=== PATIENT | male | born 1960 | race Caucasian/White ===

== ENCOUNTER 2019-03-12 15:12 | Emergency (ER) | payer MEDICARE, MEDICAID, SELFPAY ==
[2019-03-12 15:22] VITALS: BP 170/118; PULSE 80; RESP 14; TEMP 36.4; O2SAT 96; BMI 27.4
--- NOTE | 2019-03-12 16:17 | PC.NURSE ---
Pt arrived with complaints of parasite in his stool and brought sample. small smudge on toilet paper. no parasite noted by RN. pt being treated for CDiff with Augmentin and Vanco PO given by [facility]. denies abd pain at this time. pt poor historian. placed on isolation precautions.
--- NOTE | 2019-03-12 16:26 | ED_ITS ---
HPI - Nausea/Vomiting/Diarrhea General Chief complaint: Nausea/Vomiting/Diarrhea Stated complaint: thinks has parasits in his stool Time Seen by Provider: 03/12/19 16:13 Source: patient Mode of arrival: Ambulatory Limitations: no limitations History of Present Illness HPI Narrative: 50-year-old male who was discharged just over 24 hours ago from an outside facility where he states he was admitted for initially what sound like diverticulitis however during that admission he was diagnosed with C diff. He is currently on oral vancomycin and also Augmentin. He states that yesterday and today he thinks that he has noticed when he has had bowel movements warms in his stool. No recent travel. Related Data Home Medications Medication Instructions Recorded Confirmed acetaminophen-codeine 1 tab PO Q4-6H PRN 03/12/19 amlodipine 5 mg PO DAILY 03/12/19 03/12/19 amoxicillin-pot clavulanate 1 tab PO BID 03/12/19 03/12/19 atenolol 100 mg PO DAILY 03/12/19 03/12/19 ciprofloxacin HCl 500 mg PO BID 03/12/19 03/12/19 metronidazole 500 mg PO TID 03/12/19 03/12/19 ondansetron 4 mg PO Q4-6H PRN 03/12/19 03/12/19 vancomycin 125 mg PO QID 03/12/19 03/12/19 Allergies Allergy/AdvReac Type Severity Reaction Status Date / Time unknown antibiotic Allergy Uncoded 03/12/19 15:22 Review of Systems Constitutional Constitutional: Denies fever(s) and Denies headache(s) ENT Ears, Nose, Mouth, and Throat: Denies headache(s) Cardiovascular Cardiovascular: Denies chest pain, Denies edema and Denies dyspnea Respiratory Respiratory: Denies dyspnea Gastrointestinal Gastrointestinal: Reports abdominal pain, Reports change in stool character, Reports diarrhea, Denies nausea and Denies vomiting Genitourinary Genitourinary: Denies dysuria Musculoskeletal Musculoskeletal: Denies myalgias and Denies arthralgias Integumentary/Breasts Skin/Breast: Denies lesions and Denies rash Neurologic Neurologic: Denies confusion and Denies headache(s) Psychiatric Psychiatric: Denies confusion Hematologic/Lymphatic Hematologic/Lymphatic: Denies easy bleeding and Denies easy bruising Patient History Medical History Clostridium difficile infection (Inactive) Social History Smoking Status: Unknown if ever smoked alcohol intake frequency: holidays/special occasions only Substance Use Type: does not use Exam Initial Vital Signs Initial Vital Signs: Vital Signs Temperature 97.6 F 03/12/19 15:22 Pulse Rate 80 03/12/19 15:22 Respiratory Rate 14 03/12/19 15:22 Blood Pressure 170/118 H 03/12/19 15:22 Pulse Oximetry 96 03/12/19 15:22 Const General: cooperative, comfortable and well developed Orientation: alert, awake and oriented x3 HENMT Head: normal to inspection and normocephalic GI Inspection: distended Palpation: soft, No firm and No tender Skin Lesions: no lesions Rashes: no rashes Neuro General: alert and awake Cognition: normal cognition Speech: speech normal Extrem General: normal to inspection and capillary refill normal Psych Appearance: grossly normal and well kempt Course Orders Ordered: ED Orders 03/12/19 16:28 Stool Culture Stat 03/12/19 16:38 Parasite ID, Worm Stat Vital Signs Vital signs: Vital Signs - 8 hr 03/12/19 15:22 Temperature 97.6 F Pulse Rate 80 Respiratory Rate 14 Blood Pressure 170/118 H Pulse Oximetry 96 MDM - Nausea/Vomiting/Diarrhea MDM Narrative Medical decision making narrative: Given his history of C diff had a long discus livia with him about not treating him presumptively for any sort of parasitic infection and waiting for the culture results to return. He was able to provide what he thought was the worms that he has been passing there is bowel movements. This was sent to the lab. There was an initial exam under the microscope by field laboratory operator stating that this did not look like any sort of warm however it will be sent to a confirmatory lab. I did inform the patient this will take a couple days to come back. He did agree on waiting on any anti parasitic medications until this is positive. We told him that he would call. He was also given a cup that he could collect a stool sample at home and take to his primary doctor if needed. He is going to continue his current antibiotic regimen. He expressed understanding and agreement with plan. Discharge Plan Departure Patient Disposition: Home Clinical Impression: Clostridium difficile infection Discharge Date/Time: 03/12/19 17:21 Instructions: Clostridium difficile Infection Activity Restrictions/Additional Instructions: The specimen you provided today is being sent to a confirmatory lab. We will call you for any positive results. Also recommend you collect a stool sample at home like we discussed. You can contact your primary provider to have this evaluated. Continue all of your medications as directed. Prescriptions: No Action metronidazole 500 mg tablet 500 mg PO TID RF: 0 acetaminophen-codeine 300-30 mg tablet 1 tab PO Q4-6H PRN (Reason: pain) RF: 0 amlodipine 5 mg tablet 5 mg PO DAILY RF: 0 ciprofloxacin HCl 500 mg tablet 500 mg PO BID RF: 0 vancomycin 125 mg capsule 125 mg PO QID RF: 0 ondansetron 4 mg tablet,disintegrating 4 mg PO Q4-6H PRN (Reason: Nausea) RF: 0 atenolol 50 mg tablet 100 mg PO DAILY RF: 0 amoxicillin-pot clavulanate 875-125 mg tablet 1 tab PO BID RF: 0
== END 2019-03-12 17:21 | disposition home or self-care (01) ==
PROVIDERS: Emergency Provider Emergency Medicine
DX: B96.89 Other specified bacterial agents as the cause of diseases classified elsewhere (principal)
CPT/HCPCS: 87169; 99282

== ENCOUNTER 2019-11-30 20:10 | Emergency (ER) | payer MEDICARE, MEDICAID, SELFPAY ==
[2019-11-30 20:17] VITALS: BP 144/96; PULSE 88; RESP 14; TEMP 36.6; O2SAT 97; BMI 28.3
--- NOTE | 2019-11-30 20:23 | ED_ITS ---
HPI - Allergic Reaction General Chief complaint: Allergic Reaction Stated complaint: SWELLING OF EYES AND LIPS THINKS ALLERGIC REACTION Time Seen by Provider: 11/30/19 20:19 Source: patient Mode of arrival: Ambulatory Limitations: no limitations History of Present Illness HPI narrative: 59M non smoker with history of HTN presents with his and the chief complaint of swelling of eye lids bilaterally and some lip swelling. He states the symptoms are very similar to when he had allergic reaction to sulfa drugs. He denies any swelling of his throat, trouble swallowing or difficulty breathing. He has no rash, wheals or other. He denies any known exposure to new medications, foods pets or other. He took 75 mg of Benadryl few hours prior to his arrival to starting to feel a bit better MD complaint: allergic reaction and facial swelling Onset (ago): day(s) Exposure: unknown Symptoms: facial swelling and lip swelling Treatment prior to arrival: benadryl Previous Allergic Reaction History: other Related Data Home Medications Medication Instructions Recorded Confirmed acetaminophen-codeine 1 tab PO Q4-6H PRN 03/12/19 amlodipine 5 mg PO DAILY 03/12/19 03/12/19 amoxicillin-pot clavulanate 1 tab PO BID 03/12/19 03/12/19 atenolol 100 mg PO DAILY 03/12/19 03/12/19 ciprofloxacin HCl 500 mg PO BID 03/12/19 03/12/19 metronidazole 500 mg PO TID 03/12/19 03/12/19 ondansetron 4 mg PO Q4-6H PRN 03/12/19 03/12/19 vancomycin 125 mg PO QID 03/12/19 03/12/19 Previous Rx's Medication Instructions Recorded prednisone 40 mg PO DAILY 5 Days tab 11/30/19 Allergies Allergy/AdvReac Type Severity Reaction Status Date / Time amoxicillin [From Augmentin] Allergy Severe Confusion Verified 11/30/19 20:20 barium iodide Allergy Severe Gastrointestinal Verified 11/30/19 20:20 Upset clavulanic acid Allergy Severe Confusion Verified 11/30/19 20:20 [From Augmentin] methadone Allergy Severe Blurry Verified 11/30/19 20:20 Vision Sulfa (Sulfonamide Allergy Severe Rash Verified 11/30/19 20:20 Antibiotics) unknown antibiotic Allergy Uncoded 03/12/19 15:22 Review of Systems Constitutional Constitutional: Denies chills, Denies fatigue, Denies fever(s), Denies frequent falls, Denies lethargy and Denies weakness Eyes Eyes: Denies change in vision, Denies eye discharge, Denies irritation and Denies loss of vision Comments: swollen upper lids ENT Ears, Nose, Mouth, and Throat: Denies change in voice, Denies dizziness, Denies neck pain, Denies sore throat and Denies throat swelling Comments: mild lip swelling Cardiovascular Cardiovascular: Denies chest pain, Denies irregular heart rhythm, Denies lightheadedness, Denies palpitations, Denies dyspnea, Denies dyspnea on exertion and Denies orthopnea Respiratory Respiratory: Denies cough, Denies dyspnea, Denies dyspnea on exertion and Denies wheezing Gastrointestinal Gastrointestinal: Denies abdominal pain, Denies change in bowel habits, Denies diarrhea, Denies nausea and Denies vomiting Musculoskeletal Musculoskeletal: Denies neck pain and Denies numbness Integumentary/Breasts Skin/Breast: Denies pruritus, Denies erythema, Denies rash and Denies wounds Neurologic Neurologic: Denies behavioral changes, Denies confusion, Denies dizziness, Denies frequent falls, Denies loss of vision, Denies numbness and Denies weakness Psychiatric Psychiatric: Denies anxiety, Denies behavioral changes, Denies confusion, Denies depression, Denies homicidal ideation and Denies suicidal ideation Endocrine Endocrine: Denies fatigue, Denies flushing and Denies palpitations Hematologic/Lymphatic Hematologic/Lymphatic: Denies easy bruising Allergic/Immunologic Allergic/Immunologic: Denies urticaria, Denies throat swelling and Denies wheezing Patient History Medical History Clostridium difficile infection (Inactive) Social History Smoking Status: Never smoker Smoking Status: Never smoker alcohol intake frequency: holidays/special occasions only Substance Use Type: marijuana Exam Narrative Exam Narrative: GENERAL: [59] year old patient appears stated age. Well- nourished, well-developed patient, in mild distress. HEAD: Atraumatic. Normocephalic. EYES: Painless swelling to bilateral upper lids. Minimally erythematous, not indurated. Pupils equal round and reactive. Extraocular motions intact. No scleral icterus. No injection or drainage. ENT: Lip swelling difficult to see on exam, reported by patient. No tongue swelling Nose without bleeding, purulent drainage. Throat without erythema, tonsillar hypertrophy or exudate. Airway patent. NECK: Trachea midline. Non tender CARDIOVASCULAR: Regular rate and rhythm without murmurs, gallops, or rubs. RESPIRATORY: Clear to auscultation. Breath sounds equal bilaterally. No wheezes, rales, or rhonchi. GASTROINTESTINAL: Abdomen soft, non-tender, nondistended. EXTREMITIES: No edema or joint tenderness. BACK: Nontender without deformity or crepitance. No flank tenderness. NEURO: AOx3. SKIN: No rash or erythema of visible areas Initial Vital Signs Initial Vital Signs: Vital Signs Temperature 98 F 11/30/19 20:17 Pulse Rate 88 11/30/19 20:17 Respiratory Rate 14 11/30/19 20:17 Blood Pressure 144/96 H 11/30/19 20:17 Pulse Oximetry 97 11/30/19 20:17 Course Orders Ordered: Discontinued Medications Prednisone (Deltasone) 40 mg PO NOW ONE Stop: 11/30/19 21:03 Last Admin: 11/30/19 21:09 Dose: 40 mg Documented by: BRIDGER Vital Signs Vital signs: Vital Signs - 8 hr 11/30/19 20:17 Temperature 98 F Pulse Rate 88 Respiratory Rate 14 Blood Pressure 144/96 H Pulse Oximetry 97 Discharge Plan Departure Patient Disposition: Home Clinical Impression: Allergic reaction Qualifiers: Encounter type: initial encounter Qualified Code(s): T78.40XA - Allergy, unspecified, initial encounter Discharge Date/Time: 11/30/19 21:15 Instructions: DI for General Allergic Reactions Activity Restrictions/Additional Instructions: *You have been diagnosed with [generalized allergic reaction] *What to do: *Take medications as directed: [id number] antihistamine such as Benadryl and an H2 saw like Zantac or Pepcid as well as the prescription for prednisone *Follow up with your primary care provider in 2-3 days, call for an appointment. Let them know you were seen in the Emergency Department and that we ask that you be seen in follow up *Return to ER if you should have any new, worsening or concerning symptoms, Prescriptions: New prednisone 20 mg tablet 40 mg PO DAILY 5 Days RF: 0 No Action metronidazole 500 mg tablet 500 mg PO TID RF: 0 acetaminophen-codeine 300-30 mg tablet 1 tab PO Q4-6H PRN (Reason: pain) RF: 0 amlodipine 5 mg tablet 5 mg PO DAILY RF: 0 ciprofloxacin HCl 500 mg tablet 500 mg PO BID RF: 0 vancomycin 125 mg capsule 125 mg PO QID RF: 0 ondansetron 4 mg tablet,disintegrating 4 mg PO Q4-6H PRN (Reason: Nausea) RF: 0 atenolol 50 mg tablet 100 mg PO DAILY RF: 0 amoxicillin-pot clavulanate 875-125 mg tablet 1 tab PO BID RF: 0
--- NOTE | 2019-11-30 20:27 | PC.NURSE ---
Onset last evening with eyeand lip irritation and swelling, reports symptoms still present, though improving from earlier today.
[2019-11-30] MEDS: predniSONE 20 MG TABLET 40 MG PO (21:09)
== END 2019-11-30 21:15 | disposition home or self-care (01) ==
PROVIDERS: Emergency Provider Emergency Medicine
DX: T78.40XA Allergy, unspecified, initial encounter (principal)
CPT/HCPCS: 99282; 99283

== ENCOUNTER 2020-03-18 10:03 | Emergency (ER) | payer OTHER, MEDICAID, SELFPAY ==
[2020-03-18] VITALS (13 sets, daily range): BP systolic 143–170; BP diastolic 72–100; PULSE 91–115; RESP 11–35; TEMP 36.9; O2SAT 94–100; BMI 27.4
[2020-03-18 10:44] LABS: Add Manual Diff / Slide Review NO; Basophils Absolute Auto 0 /uL (0-100); Basophils Percent Auto 0.3 % (0-2); Eosinophils Absolute Auto 0 /uL (0-450); Hematocrit 47.9 % (41-53); Hemoglobin 16.3 g/dL (13.5-17.5); Lymphocytes Absolute Auto 400 /uL (1100-4500); Lymphocytes Percent Auto 4.6 % (25-40); Mean Corpuscular HGB Conc 33.9 % (30-36); Mean Corpuscular Volume 91.4 fL (80-100); Monocytes Absolute Auto 200 /uL (0-900); Monocytes Percent Auto 2.3 % (3-14); Neutrophils Absolute Auto 8800 /uL (1500-7000); Neutrophils Percent Auto 92.8 % (50-75); Platelet Count 246 X10^3/uL (150-400); Red Blood Cell Count 5.25 X10^6/uL (4.5-5.9); Red Cell Distribution Width 13.9 % (11.6-14.8); White Blood Cell Count 9.5 X10^3/uL (4.5-11.0)
[2020-03-18 10:48] LABS: Alanine Aminotransferase 25 IU/L (<50); Albumin 5.1 g/dL (3.5-5.0); Albumin Globulin Ratio 1.5 (1.0-2.8); Alkaline Phosphatase 74 U/L (38-126); Aspartate Aminotransferase 23 IU/L (17-59); BUN Creatinine Ratio 22.7 (6-22); Bilirubin Total 1.7 mg/dL (0.2-1.3); Blood Urea Nitrogen 17 mg/dL (9-20); Calcium 10.2 mg/dL (8.4-10.2); Carbon Dioxide 19 mmol/L (22-32); Chloride 107 mmol/L (98-107); Estimated Glomerular Filt Rate > 60.0 mL/min (>60); Globulin 3.5 g/dL (1.7-4.1); Glucose 177 mg/dL (70-100); HEMOLYSIS < 15 (0-50); Lipase 60 U/L (23-300); Potassium 4.1 mmol/L (3.4-5.1); Sodium 142 mmol/L (137-145); Total Protein 8.6 g/dL (6.3-8.2)
[2020-03-18] MEDS: SODIUM CHLORIDE 0.9% 1,000 ML 150 ML IV (10:56)
--- NOTE | 2020-03-18 11:15 | ED_ITS ---
HPI - Abdominal Pain General Chief Complaint: Abdominal Pain Stated Complaint: coughing/throwing up/internal infection Time Seen by Provider: 03/18/20 10:41 Source: patient Mode of arrival: Ambulatory Limitations: no limitations History of Present Illness HPI narrative: 59-year-old male with history of C diff, neurogenic bladder and chronic ongoing back issues presenting today with nausea vomiting abdominal pain and diarrhea. He says it started last night at dinner yesterday at lunch she had some beans and sausage. He thinks this office may have been bad. He started feeling nauseated by dinner he has had multiple episodes of vomiting and loose watery diarrhea. He has also been having some abdominal pain for a week but intensified last night. He denies any exposure to COVID no one else is sick. MD complaint: abdominal pain Quality: cramping Related Data Home Medications Medication Instructions Recorded Confirmed acetaminophen-codeine 1 tab PO Q4-6H PRN 03/12/19 amlodipine 5 mg PO DAILY 03/12/19 03/12/19 amoxicillin-pot clavulanate 1 tab PO BID 03/12/19 03/12/19 atenolol 100 mg PO DAILY 03/12/19 03/12/19 ciprofloxacin HCl 500 mg PO BID 03/12/19 03/12/19 metronidazole 500 mg PO TID 03/12/19 03/12/19 ondansetron 4 mg PO Q4-6H PRN 03/12/19 03/12/19 vancomycin 125 mg PO QID 03/12/19 03/12/19 Previous Rx's Medication Instructions Recorded ondansetron 4 mg PO Q8H #10 tab 03/18/20 Allergies Allergy/AdvReac Type Severity Reaction Status Date / Time amoxicillin [From Augmentin] Allergy Severe Confusion Verified 11/30/19 20:20 barium iodide Allergy Severe Gastrointestinal Verified 11/30/19 20:20 Upset clavulanic acid Allergy Severe Confusion Verified 11/30/19 20:20 [From Augmentin] methadone Allergy Severe Blurry Verified 11/30/19 20:20 Vision Sulfa (Sulfonamide Allergy Severe Rash Verified 11/30/19 20:20 Antibiotics) unknown antibiotic Allergy Uncoded 03/12/19 15:22 Review of Systems Review of Systems Narrative: GENERAL: Denies chills, fatigue, malaise, fever, sweats, travel HEENT: Denies sinus pain, ear pain, sore throat, difficulty swallowing, neck pain RESPIRATORY: Denies dyspnea, cough, wheezing, hemoptysis, sputum. CARDIOVASCULAR: Denies chest pain, palpitations, orthopnea, edema GASTROINTESTINAL: See HPI : Denies dysuria, frequency, incontinence, hematuria, urinary retention, flank pain. MUSCULOSKELETAL: Denies weakness, joint pain, or bony pain SKIN: No rash, no erythema, no pruritus NEUROLOGIC: Denies weakness, dizziness, headache, numbness, change in speech, confusion PSYCHIATRIC: No concerning psychosocial issues. 12 point review of systems is negative except for those stated above and HPI Patient History Medical History Clostridium difficile infection (Inactive) Social History Smoking Status: Never smoker Smoking Status: Never smoker alcohol intake frequency: holidays/special occasions only Substance Use Type: marijuana Exam Initial Vital Signs Initial Vital Signs: Vital Signs Pulse Rate 105 H 03/18/20 10:12 Blood Pressure 143/100 H 03/18/20 10:12 Pulse Oximetry 99 03/18/20 10:12 GENERAL: alert male appears uncomfortable and to not feel well HEENT: Head atraumatic,EOMI, pupils reactive, face symmetric, moist mucous membranes CARDIOVASCULAR: Regular rate and rhythm without murmurs, rubs or gallops. RESPIRATORY: Breath sounds equal bilaterally, no wheezes rales or rhonchi. ABDOMEN: Soft, mild left-sided tenderness no guarding or rebound : No CVA tenderness EXTREMITIES: Normal range of motion, no clubbing or edema. Neurovascularly intact NEUROLOGICAL: Alert and oriented x4.Normal gait and speech. SKIN: Warm, dry, no laceration, no petechiae, no rashes or lesions. Course Orders Ordered: ED Orders 03/18/20 10:25 Complete Blood Count AUTO DIFF Stat Comprehensive Metabolic Panel Stat Lipase Stat 03/18/20 11:45 CT abdomen pelvis w con Stat 03/18/20 12:15 Ictotest Urine Stat UA dip and micro [Urinalysis and Microscopic] Stat Urine Culture Stat Discontinued Medications Sodium Chloride (Normal Saline 0.9%) 1,000 mls @ 150 mls/hr IV CONT PANKAJ Last Infusion: 03/18/20 13:20 Dose: 999 mls/hr Documented by: Admin: 03/18/20 10:56 Dose: 150 mls/hr Documented by: LIZZIE Sodium Chloride (Normal Saline 0.9%) 1,000 mls @ 1,000 mls/hr IV BOLUS ONE Stop: 03/18/20 15:06 Last Infusion: 03/18/20 15:32 Dose: 0 mls/hr Documented by: Admin: 03/18/20 14:15 Dose: 1,000 mls/hr Documented by: DEBBIE Ketorolac Tromethamine (Toradol) 30 mg IV NOW ONE Stop: 03/18/20 11:17 Last Admin: 03/18/20 11:21 Dose: 30 mg Documented by: LIZZIE Morphine Sulfate (Morphine) 2 mg IV NOW ONE Stop: 03/18/20 14:08 Last Admin: 03/18/20 14:16 Dose: 2 mg Documented by: DEBBIE Ondansetron HCl (Zofran) 4 mg IV NOW ONE Stop: 03/18/20 11:17 Last Admin: 03/18/20 11:21 Dose: 4 mg Documented by: LIZZIE Ondansetron HCl (Zofran) 4 mg IV NOW ONE Stop: 03/18/20 14:08 Last Admin: 03/18/20 14:15 Dose: 4 mg Documented by: DEBBIE Vital Signs Vital signs: Vital Signs - 8 hr 03/18/20 10:30 03/18/20 11:09 03/18/20 11:30 Pulse Rate 101 H 100 H 115 H Respiratory Rate 13 16 35 H Blood Pressure 151/84 H 170/99 H Pulse Oximetry 99 100 100 03/18/20 11:40 03/18/20 12:35 03/18/20 12:36 Pulse Rate 95 H 100 H 99 H Respiratory Rate 13 24 19 Blood Pressure 159/88 H 159/95 H Pulse Oximetry 100 98 99 03/18/20 13:00 03/18/20 13:30 03/18/20 14:00 Pulse Rate 97 H 97 H 96 H Respiratory Rate 23 21 16 Blood Pressure 160/91 H 150/83 H Pulse Oximetry 94 94 96 03/18/20 14:30 03/18/20 15:00 Pulse Rate 91 H 93 H Respiratory Rate 11 L 24 Blood Pressure 148/72 H Pulse Oximetry 100 96 MDM - Abdominal Pain Lab Data Attestation: I reviewed the patient's lab results. Result diagrams: 03/18/20 10:03/18/20 10:25 Labs: Lab Results 03/18/20 03/18/20 03/18/20 Range/Units 10: 10:25 12:15 WBC 9.5 (4.5-11.0) X10^3/uL RBC 5.25 (4.5-5.9) X10^6/uL Hgb 16.3 (13.5-17.5) g/dL Hct 47.9 (41-53) % MCV 91.4 (80-100) fL MCH 31.0 (26-34) PG MCHC 33.9 (30-36) % RDW 13.9 (11.6-14.8) % Plt Count 246 (150-400) X10^3/uL Neut % (Auto) 92.8 H (50-75) % Lymph % (Auto) 4.6 L (25-40) % Harmon % (Auto) 2.3 L (3-14) % Eos % (Auto) 0.0 L (2-4) % Baso % (Auto) 0.3 (0-2) % Neut # (Auto) 8800 H (5800-3406) /uL Lymph # (Auto) 400 L (8973-6838) /uL Harmon # (Auto) 200 (0-900) /uL Eos # (Auto) 0 (0-450) /uL Baso # (Auto) 0 (0-100) /uL Sodium 142 (137-145) mmol/L Potassium 4.1 (3.4-5.1) mmol/L Chloride 107 (98-107) mmol/L Carbon Dioxide 19 L (22-32) mmol/L BUN 17 (9-20) mg/dL Creatinine 0.75 (0.66-1.25) mg/dL Estimated GFR > 60.0 (>60) mL/min BUN/Creatinine Ratio 22.7 H (6-22) Glucose 177 H (70-100) mg/dL Calcium 10.2 (8.4-10.2) mg/dL Total Bilirubin 1.7 H (0.2-1.3) mg/dL AST 23 (17-59) IU/L ALT 25 (<50) IU/L Alkaline Phosphatase 74 (38-126) U/L Total Protein 8.6 H (6.3-8.2) g/dL Albumin 5.1 H (3.5-5.0) g/dL Globulin 3.5 (1.7-4.1) g/dL Albumin/Globulin Ratio 1.5 (1.0-2.8) Lipase 60 (23-300) U/L Urine Color Yellow Urine Appearance Clear Urine pH 5.0 (4.5-8.0) Ur Specific [place] >=1.030 H (1.000-1.035) Urine Protein 2+ H (Negative) Urine Glucose (UA) Negative (Negative) g/dL Urine Ketones 2+ H (NEGATIVE) Urine Occult Blood Trace-lysed (Negative) Urine Nitrate Negative (Negative) Urine Bilirubin 1+ H (NEGATIVE) Ur Bilirubin Confirm Negative (Negative) Urine Urobilinogen 0.2 (0.2) E.U./dL Ur Leukocyte Esterase Negative (NEGATIVE) Urine RBC 0-1/hpf (0-5/HPF) Urine WBC 5-10/hpf H (0-5/HPF) Ur Squamous Epith Cells 1-5 /hpf (0-5/HPF) Amorphous Sediment 1+ Urine Bacteria Moderate (10-30) H (None) Urine Mucus 3+ H (Negative) Ur Culture Indicated? Specimen cultured Point of care testing: Urine Dip Bedside Urine Glucose Negative Bedside Urine Bilirubin - Negative Bedside Urine Ketone +++ 80 Urine Specific [place] 1.030 Bedside Urine Occult Blood - Negative Bedside Urine pH 5.5 Bedside Urine Protein ++ 100 Bedside Urine Urobilinogen - Negative Bedside Urine Nitrite - Negative Bedside Urine Leukocytes - Negative Esterase Imaging Data CT scan - abdomen/pelvis: Radiologist's Impression: PROCEDURE: CT ABDOMEN PELVIS W CON INDICATIONS: llq pain TECHNIQUE: After the administration of intravenous contrast, 5 mm thick sections acquired from the diaphragm to the symphysis. 5 mm coronal and sagittal reformats were acquired. For radiation dose reduction, the following was used: automated exposure control, adjustment of mA and/or kV according to patient size. COMPARISON: [facility], CT, CT ABDOMEN PELVIS WITH CONTRAST, 06/06/2017, 22:23. [facility], CT, CT ABDOMEN PELVIS WITHOUT CONTRAST, 03/08/2019, 11:35. [facility], CT, CT ABDOMEN PELVIS WITH CONTRAST, 03/06/2019, 21:54. FINDINGS: Image quality: Excellent. ABDOMEN: Lung bases: Lung bases are clear. Heart size is normal. Solid organs: There is hepatic steatosis. Liver is normal in size and enhancement. Gallbladder is normal . Biliary system is non dilated. Pancreas enhances normally. Spleen is normal in size and enhancement. No adrenal nodules. Kidneys demonstrate normal size and enhancement, without hydronephrosis. Low-density cortical nodules in kidneys are likely renal cysts. A 1 mm nonobstructing stone is seen in the right kidney. Peritoneum and bowel: There may be mild thickening of the sigmoid colon and rectum. Bowel loops demonstrate normal caliber. There are scattered colonic diverticula. No CT findings to suggest acute diverticulitis. No free fluid or air. Nodes and vessels: No retroperitoneal or mesenteric adenopathy by size criteria. Aorta and inferior vena cava are normal in size. Miscellaneous: No ventral hernias. PELVIS: Genitourinary: Bladder wall thickness is normal. Miscellaneous: No inguinal adenopathy. Small bilateral fat containing inguinal hernias are present. Bones: No suspicious bony lesions. No vertebral body compression fractures. Scoliosis with degenerative and postsurgical changes in thoracic and lumbar spine. IMPRESSION: 1. Suspect mild thickening of the sigmoid colon and rectum, suggesting mild colitis. 2. Diverticulosis without acute diverticulitis. 3. Hepatic steatosis. Dictated by: Mary James M.D. on 03/18/2020 at 12:38 MDM Narrative Medical decision making narrative: Patient still feeling nauseous unwilling to have any p.o. challenge at this time. He is given a 2nd dose of Zofran and more IV fluid along with more pain medicine Toradol did not seem to help. He is feeling much better after morphine tolerating some ice chips feels ready and able to go. Urine is cultured he has no nitrates self caths regularly, possible colonization will wait for culture. Discharge Plan Departure Patient Disposition: Home Clinical Impression: Gastroenteritis Discharge Date/Time: 03/18/20 15:38 Instructions: DI for Viral Gastroenteritis -- Adult Activity Restrictions/Additional Instructions: 1) You have been diagnosed with gastroenteritis 2) What to do: Drink frequent but small amounts of fluids. I recommend Gatorade or a Gatorade-like product, as it has small amounts of sugar and salts that improve fluid retention. 3) Take medications as directed Zofran 4 mg every 8 hours if needed for nausea or vomiting-->SENT TO [facility] IN [place] 4) Follow up with your primary care provider in 2-3 days 5) Return to ER if you should have any new or worsening symptoms such as, unable to hold down fluids despite use of anti-nausea medications and the small volume oral rehydration strategy. Prescriptions: New ondansetron 4 mg tablet,disintegrating 4 mg PO Q8H Qty: 10 RF: 0 No Action metronidazole 500 mg tablet 500 mg PO TID RF: 0 acetaminophen-codeine 300-30 mg tablet 1 tab PO Q4-6H PRN (Reason: pain) RF: 0 amlodipine 5 mg tablet 5 mg PO DAILY RF: 0 ciprofloxacin HCl 500 mg tablet 500 mg PO BID RF: 0 vancomycin 125 mg capsule 125 mg PO QID RF: 0 ondansetron 4 mg tablet,disintegrating 4 mg PO Q4-6H PRN (Reason: Nausea) RF: 0 atenolol 50 mg tablet 100 mg PO DAILY RF: 0 amoxicillin-pot clavulanate 875-125 mg tablet 1 tab PO BID RF: 0 Referrals: Ирина Weaver MD [Primary Care Provider] -
[2020-03-18] MEDS: KETOROLAC 60 MG/2 ML VIAL 30 MG IV (11:21)
[2020-03-18] MEDS: ONDANSETRON 4 MG/2 ML INJ IV ×2 (11:21→14:15)
--- NOTE | 2020-03-18 11:45 | DI.CT.S_ITS ---
PROCEDURE: CT ABDOMEN PELVIS W CON INDICATIONS: llq pain TECHNIQUE: After the administration of intravenous contrast, 5 mm thick sections acquired from the diaphragm to the symphysis. 5 mm coronal and sagittal reformats were acquired. For radiation dose reduction, the following was used: automated exposure control, adjustment of mA and/or kV according to patient size. COMPARISON: [facility], CT, CT ABDOMEN PELVIS WITH CONTRAST, 06/06/2017, 22:23. [facility], CT, CT ABDOMEN PELVIS WITHOUT CONTRAST, 03/08/2019, 11:35. [facility], CT, CT ABDOMEN PELVIS WITH CONTRAST, 03/06/2019, 21:54. FINDINGS: Image quality: Excellent. ABDOMEN: Lung bases: Lung bases are clear. Heart size is normal. Solid organs: There is hepatic steatosis. Liver is normal in size and enhancement. Gallbladder is normal . Biliary system is non dilated. Pancreas enhances normally. Spleen is normal in size and enhancement. No adrenal nodules. Kidneys demonstrate normal size and enhancement, without hydronephrosis. Low-density cortical nodules in kidneys are likely renal cysts. A 1 mm nonobstructing stone is seen in the right kidney. Peritoneum and bowel: There may be mild thickening of the sigmoid colon and rectum. Bowel loops demonstrate normal caliber. There are scattered colonic diverticula. No CT findings to suggest acute diverticulitis. No free fluid or air. Nodes and vessels: No retroperitoneal or mesenteric adenopathy by size criteria. Aorta and inferior vena cava are normal in size. Miscellaneous: No ventral hernias. PELVIS: Genitourinary: Bladder wall thickness is normal. Miscellaneous: No inguinal adenopathy. Small bilateral fat containing inguinal hernias are present. Bones: No suspicious bony lesions. No vertebral body compression fractures. Scoliosis with degenerative and postsurgical changes in thoracic and lumbar spine. IMPRESSION: 1. Suspect mild thickening of the sigmoid colon and rectum, suggesting mild colitis. 2. Diverticulosis without acute diverticulitis. 3. Hepatic steatosis. Dictated by: Mary James M.D. on 03/18/2020 at 12:38 Approved by: Mary James M.D. on 03/18/2020 at 12:45
[2020-03-18 12:39] LABS: Appearance Urine UA CLEAR; Bilirubin Urine UA 1+ (NEGATIVE); Color Urine UA YELLOW; Glucose Urine UA NEGATIVE (Negative); Ketones Urine UA 2+ (NEGATIVE); Leukocyte Esterase Urine UA NEGATIVE (NEGATIVE); Nitrite Urine UA NEGATIVE (Negative); Occult Blood Urine UA TRACE-LYSED (Negative); Protein Urine UA 2+ (Negative); Specific Gravity Urine UA >=1.030 (1.000-1.035); Urobilinogen Urine UA 0.2 E.U./dL (0.2)
[2020-03-18 12:48] LABS: Amorphous Sediment Urine 1+; Bacteria Urine Moderate (10-30); Ictotest Urine Negative (Negative); RBC Urine 0-1/HPF (0-5/HPF); Squamous Epithelial Cell Urine 1-5 /HPF (0-5/HPF); WBC Urine 5-10/HPF (0-5/HPF)
[2020-03-18 12:49] LABS: Culture Indicated Urine Specimen Cultured; Mucus Urine 3+ (Negative)
[2020-03-18] MEDS: SODIUM CHLORIDE 0.9% 1,000 ML 1000 ML IV (14:15)
[2020-03-18] MEDS: MORPHINE 2 MG/ML INJ IV (14:16)
== END 2020-03-18 15:38 | disposition home or self-care (01) ==
PROVIDERS: Emergency Provider Emergency Medicine; PCP Family Medicine
DX: K52.9 Noninfective gastroenteritis and colitis, unspecified (principal); R10.9 Unspecified abdominal pain; R11.2 Nausea with vomiting, unspecified
CPT/HCPCS: 36415; 74177; 80053; 81001; 81003; 83690; 85025; 87077; 87086; 87185; 87186; 96361; 96374; 96375; 96376; 99284; J1885; J2270; J2405; Q9967

== ENCOUNTER 2020-05-25 10:45 | Emergency (ER) | payer OTHER, MEDICAID, SELFPAY ==
[2020-05-25] VITALS (8 sets, daily range): BP systolic 126–140; BP diastolic 69–82; PULSE 85–93; RESP 12–14; TEMP 36.7; O2SAT 94–98; BMI 22.6
[2020-05-25] MEDS: ONDANSETRON 4 MG/2 ML INJ IV ×2 (11:44→12:48)
[2020-05-25] MEDS: SODIUM CHLORIDE 0.9% 1,000 ML 1000 ML IV ×2 (11:44→12:48)
[2020-05-25 11:47] LABS: Add Manual Diff / Slide Review NO; Basophils Absolute Auto 0 /uL (0-100); Basophils Percent Auto 0.2 % (0-2); Eosinophils Absolute Auto 0 /uL (0-450); Hematocrit 44.4 % (41-53); Hemoglobin 15.4 g/dL (13.5-17.5); Lymphocytes Absolute Auto 300 /uL (1100-4500); Lymphocytes Percent Auto 4.6 % (25-40); Mean Corpuscular HGB Conc 34.7 % (30-36); Mean Corpuscular Hemoglobin 31.2 PG (26-34); Mean Corpuscular Volume 90.1 fL (80-100); Monocytes Absolute Auto 100 /uL (0-900); Monocytes Percent Auto 1.9 % (3-14); Neutrophils Absolute Auto 6500 /uL (1500-7000); Neutrophils Percent Auto 93.3 % (50-75); Platelet Count 244 X10^3/uL (150-400); Red Blood Cell Count 4.93 X10^6/uL (4.5-5.9); Red Cell Distribution Width 14.1 % (11.6-14.8)
[2020-05-25 11:51] LABS: INR 1.1 (0.9-1.3); Prothrombin Time 12.5 SECONDS (10.1-12.7)
[2020-05-25 11:53] LABS: Alanine Aminotransferase 33 IU/L (<50); Albumin 4.9 g/dL (3.5-5.0); Albumin Globulin Ratio 1.5 (1.0-2.8); Alkaline Phosphatase 55 U/L (38-126); Aspartate Aminotransferase 25 IU/L (17-59); BUN Creatinine Ratio 23.4 (6-22); Bilirubin Total 1.2 mg/dL (0.2-1.3); Blood Urea Nitrogen 15 mg/dL (9-20); Carbon Dioxide 22 mmol/L (22-32); Chloride 106 mmol/L (98-107); Estimated Glomerular Filt Rate > 60.0 mL/min (>60); Globulin 3.2 g/dL (1.7-4.1); Glucose 143 mg/dL (70-100); HEMOLYSIS 19 (0-50); Lipase 23 U/L (23-300); Sodium 137 mmol/L (137-145); Total Protein 8.1 g/dL (6.3-8.2)
[2020-05-25 11:54] LABS: PTT Partial Thromboplastin Tim 31 SECONDS (26.4-36.2)
--- NOTE | 2020-05-25 11:54 | DI.CT.S_ITS ---
PROCEDURE: CT ABDOMEN PELVIS W CON INDICATIONS: Abd pain, RLQ LLQ TECHNIQUE: After the administration of intravenous contrast, 5 mm thick sections acquired from the diaphragm to the symphysis. 5 mm coronal and sagittal reformats were acquired. For radiation dose reduction, the following was used: automated exposure control, adjustment of mA and/or kV according to patient size. COMPARISON: [facility], CT, CT ABDOMEN PELVIS W CON, 03/18/2020, 11:49. FINDINGS: Image quality: Excellent. ABDOMEN: Lung bases: Lung bases are clear. Heart size is normal. Solid organs: Liver is normal in size and enhancement. Gallbladder is contracted, within normal limits. Biliary system is non dilated. Pancreas enhances normally. Spleen is normal in size and enhancement. No adrenal nodules. Kidneys demonstrate normal size and enhancement, without hydronephrosis. Peritoneum and bowel: Bowel loops demonstrate normal wall thickness and caliber. No free fluid or air. Scattered diverticulosis without evidence of diverticulitis. Nodes and vessels: No retroperitoneal or mesenteric adenopathy by size criteria. Aorta and inferior vena cava are normal in size. Miscellaneous: No ventral hernias. PELVIS: Genitourinary: Bladder wall thickness is normal. Miscellaneous: No inguinal hernias or adenopathy. Bones: No suspicious bony lesions. No vertebral body compression fractures. Remote bilateral SI joint fusion and extensive thoracolumbar fusion. IMPRESSION: 1. No evidence of acute abdominal process. 2. Scattered diverticulosis. Dictated by: Yamil Funes M.D. on 05/25/2020 at 12:52 Approved by: Yamil Funes M.D. on 05/25/2020 at 12:59
--- NOTE | 2020-05-25 12:08 | ED_ITS ---
HPI - Abdominal Pain <Saira NewtonSADE - Last Filed: 05/25/20 16:14> General Chief Complaint: Abdominal Pain Stated Complaint: abd mod pain/nausea x1 month Time Seen by Provider: 05/25/20 11:40 Source: patient and family Mode of arrival: Ambulatory Limitations: no limitations History of Present Illness HPI narrative: 59yo male with a history of Schatzki's ring presents x 2 years, history of C diff, chronic back issues with multiple surgeries, and neurogenic bladder, presents to the ED for ongoing nausea, vomiting, and abdominal pain. He states for the past 2 years he has been having intermittent issues of nausea, vomiting, and abdominal pain. Sometimes he can go a few weeks without having this issue but once it starts, he has multiple episodes of vomiting in that day and increasing pain. He states this episode has lasted approximately 16 hours, and he reports increasing pain. He has an appointment with a GI specialist in a few weeks. He has not followed up about his Schatzki's diagnosis over the past 2 years. Patient states he has tried [id number] medications such as Tums and Gas-X but has not had any relief. His primary care provider is currently Dr. Weaver, as he just switched. He occasionally has intermittent constipation that alternates with diarrhea. He does report mucus in her stool at times. Denies any blood. Patient denies any chest pain, shortness of breath, fevers, dizziness, or any other concerns. He denies any major abdominal surgeries. Related Data Home Medications Medication Instructions Recorded Confirmed acetaminophen-codeine 1 tab PO Q4-6H PRN 03/12/19 amlodipine 5 mg PO DAILY 03/12/19 03/12/19 amoxicillin-pot clavulanate 1 tab PO BID 03/12/19 03/12/19 atenolol 100 mg PO DAILY 03/12/19 03/12/19 ciprofloxacin HCl 500 mg PO BID 03/12/19 03/12/19 metronidazole 500 mg PO TID 03/12/19 03/12/19 ondansetron 4 mg PO Q4-6H PRN 03/12/19 03/12/19 vancomycin 125 mg PO QID 03/12/19 03/12/19 Previous Rx's Medication Instructions Recorded ondansetron 4 mg PO Q8H #10 tab 03/18/20 ondansetron 4 mg PO Q6H PRN #14 tab 05/25/20 Allergies Allergy/AdvReac Type Severity Reaction Status Date / Time amoxicillin [From Augmentin] Allergy Severe Confusion Verified 05/25/20 11:39 barium iodide Allergy Severe Gastrointestinal Verified 05/25/20 11:39 Upset clavulanic acid Allergy Severe Confusion Verified 05/25/20 11:39 [From Augmentin] methadone Allergy Severe Blurry Verified 05/25/20 11:39 Vision Sulfa (Sulfonamide Allergy Severe Rash Verified 05/25/20 11:39 Antibiotics) unknown antibiotic Allergy Uncoded 03/12/19 15:22 Review of Systems <SADE Hoffman - Last Filed: 05/25/20 16:14> Review of Systems Narrative: REVIEW OF SYSTEMS: GENERAL: Denies fever. HENT: No head trauma. CARDIOVASCULAR: No chest pain. RESPIRATORY: No shortness of breath or cough. GASTROINTESTINAL: Complains of abdominal pain, see HPI GENITOURINARY: No flank pain. MUSCULOSKELETAL: No pain. INTEGUMENTARY: No rash. NEURO: No numbness or tingling. PSYCH: No behavior or mood changes. Patient History <SADE Hoffman - Last Filed: 05/25/20 16:14> Medical History (Updated 05/25/20 @ 14:56 by SADE Hoffman) Clostridium difficile infection Social History Smoking Status: Never smoker Smoking Status: Never smoker alcohol intake frequency: 0-2 drinks per day Substance Use Type: marijuana Exam <SADE Hoffman - Last Filed: 05/25/20 16:14> Initial Vital Signs Initial Vital Signs: Vital Signs Temperature 98.1 F 05/25/20 11:20 Pulse Rate 89 05/25/20 11:20 Respiratory Rate 14 05/25/20 11:20 Blood Pressure 140/82 05/25/20 11:20 Pulse Oximetry 98 05/25/20 11:20 PHYSICAL EXAMINATION: GENERAL: Awake and alert, no acute distress. HENT: Normocephalic, atraumatic. Hearing intact. Oral mucosa is pink and moist. EYES: Conjunctiva pink, sclera white, no periorbital swelling. CARDIOVASCULAR: S1 and S2 sounds normal. Regular rate and rhythm, no murmurs, clicks, or bruits. No pedal edema. RESPIRATORY: Normal respiratory rate, trachea midline, airway patent. No stridor, nasal flaring or accessory muscle use. Lungs are clear in all fish without wheeze, rhonchi, or crackles. GASTROINTESTINAL: Bowel sounds normoactive. Abdomen is soft, lower right lower and left lower quadrant abdominal pain.. No organomegaly, no palpable masses. GENITALURINARY: No flank tenderness. MUSCULOSKELETAL: Normal gait and coordination. Equal tone and mass bilaterally. EXTREMITIES: CMS intact, no pedal edema. SKIN: Warm, dry, soft, appropriate color for ethnicity. No lesions, rashes, or wounds to visualized areas. NEURO: Alert and Oriented X 3. Good coordination. No ataxia, or sensory deficits, or cognitive issues. PSYCH: Appropriate affect and mood. <Mary Kay Mulligan MD - Last Filed: 05/26/20 07:34> Initial Vital Signs Initial Vital Signs: Vital Signs Temperature 98.1 F 05/25/20 11:20 Pulse Rate 89 05/25/20 11:20 Respiratory Rate 14 05/25/20 11:20 Blood Pressure 140/82 05/25/20 11:20 Pulse Oximetry 98 05/25/20 11:20 Course <SADE Hoffman - Last Filed: 05/25/20 16:14> Course Course Narrative: Patient reported improved nausea after administration of onda nsetron and fluids. He states nausea was a 3/10. Patient given Protonix and Reglan an additional L fluid. Patient was able to tolerate p.o. trial with juice and ice. Patient did not vomit at all during emergency department stay which is approximately 4 hours. Discussed laboratory results and CT with patient, is comfortable being discharged. Orders Ordered: Discontinued Medications Sodium Chloride (Normal Saline 0.9%) 1,000 mls @ 1,000 mls/hr IV BOLUS ONE Stop: 05/25/20 12:38 Last Infusion: 05/25/20 12:37 Dose: 0 mls/hr Documented by: Admin: 05/25/20 11:44 Dose: 1,000 mls/hr Documented by: JENNY Sodium Chloride (Normal Saline 0.9%) 1,000 mls @ 1,000 mls/hr IV BOLUS ONE Stop: 05/25/20 13:37 Last Infusion: 05/25/20 13:45 Dose: 0 mls/hr Documented by: Admin: 05/25/20 12:48 Dose: 1,000 mls/hr Documented by: JENNY Ketorolac Tromethamine (Ketorolac 60 Mg/2 Ml Vial) 30 mg IV NOW ONE Stop: 05/25/20 11:56 Last Admin: 05/25/20 12:48 Dose: 30 mg Documented by: JENNY Metoclopramide HCl (Metoclopramide 10 Mg/2 Ml Inj) 10 mg IV NOW ONE Stop: 05/25/20 13:25 Last Admin: 05/25/20 13:32 Dose: 10 mg Documented by: JENNY Ondansetron HCl (Ondansetron 4 Mg/2 Ml Inj) 4 mg IV NOW ONE Stop: 05/25/20 11:39 Last Admin: 05/25/20 11:44 Dose: 4 mg Documented by: JENNY Ondansetron HCl (Ondansetron 4 Mg/2 Ml Inj) 4 mg IV NOW ONE Stop: 05/25/20 11:56 Last Admin: 05/25/20 12:48 Dose: 4 mg Documented by: JENNY Pantoprazole Sodium (Pantoprazole 40 Mg Vial) 40 mg IV NOW ONE Stop: 05/25/20 13:25 Last Admin: 05/25/20 13:32 Dose: 40 mg Documented by: JENNY Vital Signs Vital signs: Vital Signs - 8 hr 05/25/20 11:20 05/25/20 11:41 05/25/20 12:00 Temperature 98.1 F Pulse Rate 89 93 H 89 Respiratory Rate 14 Blood Pressure 140/82 126/69 Pulse Oximetry 98 96 94 05/25/20 12:30 05/25/20 12:43 05/25/20 13:00 Temperature Pulse Rate 85 89 87 Respiratory Rate 14 12 Blood Pressure 127/73 133/77 133/77 Pulse Oximetry 96 97 94 05/25/20 13:30 05/25/20 14:00 Temperature Pulse Rate 90 89 Respiratory Rate Blood Pressure 140/76 136/77 Pulse Oximetry 94 98 <Mary Kay Mulligan MD - Last Filed: 05/26/20 07:34> Orders Ordered: Discontinued Medications Sodium Chloride (Normal Saline 0.9%) 1,000 mls @ 1,000 mls/hr IV BOLUS ONE Stop: 05/25/20 12:38 Last Infusion: 05/25/20 12:37 Dose: 0 mls/hr Documented by: Admin: 05/25/20 11:44 Dose: 1,000 mls/hr Documented by: JENNY Sodium Chloride (Normal Saline 0.9%) 1,000 mls @ 1,000 mls/hr IV BOLUS ONE Stop: 05/25/20 13:37 Last Infusion: 05/25/20 13:45 Dose: 0 mls/hr Documented by: Admin: 05/25/20 12:48 Dose: 1,000 mls/hr Documented by: JENNY Ketorolac Tromethamine (Ketorolac 60 Mg/2 Ml Vial) 30 mg IV NOW ONE Stop: 05/25/20 11:56 Last Admin: 05/25/20 12:48 Dose: 30 mg Documented by: JENNY Metoclopramide HCl (Metoclopramide 10 Mg/2 Ml Inj) 10 mg IV NOW ONE Stop: 05/25/20 13:25 Last Admin: 05/25/20 13:32 Dose: 10 mg Documented by: JENNY Ondansetron HCl (Ondansetron 4 Mg/2 Ml Inj) 4 mg IV NOW ONE Stop: 05/25/20 11:39 Last Admin: 05/25/20 11:44 Dose: 4 mg Documented by: JENNY Ondansetron HCl (Ondansetron 4 Mg/2 Ml Inj) 4 mg IV NOW ONE Stop: 05/25/20 11:56 Last Admin: 05/25/20 12:48 Dose: 4 mg Documented by: JENNY Pantoprazole Sodium (Pantoprazole 40 Mg Vial) 40 mg IV NOW ONE Stop: 05/25/20 13:25 Last Admin: 05/25/20 13:32 Dose: 40 mg Documented by: JENNY Vital Signs Vital signs: Vital Signs - 8 hr 05/25/20 11:20 05/25/20 11:41 05/25/20 12:00 Temperature 98.1 F Pulse Rate 89 93 H 89 Respiratory Rate 14 Blood Pressure 140/82 126/69 Pulse Oximetry 98 96 94 05/25/20 12:30 05/25/20 12:43 05/25/20 13:00 Temperature Pulse Rate 85 89 87 Respiratory Rate 14 12 Blood Pressure 127/73 133/77 133/77 Pulse Oximetry 96 97 94 05/25/20 13:30 05/25/20 14:00 Temperature Pulse Rate 90 89 Respiratory Rate Blood Pressure 140/76 136/77 Pulse Oximetry 94 98 MDM - Abdominal Pain <SADE Hoffman - Last Filed: 05/25/20 16:14> Medical Records Attestation: I reviewed the patient's medical records. Lab Data Attestation: I reviewed the patient's lab results. Result diagrams: 05/25/20 11:35 05/25/20 11:35 Labs: Lab Results 05/25/20 05/25/20 05/25/20 Range/Units 11:35 11:35 11:35 WBC 7.0 (4.5-11.0) X10^3/uL RBC 4.93 (4.5-5.9) X10^6/uL Hgb 15.4 (13.5-17.5) g/dL Hct 44.4 (41-53) % MCV 90.1 (80-100) fL MCH 31.2 (26-34) PG MCHC 34.7 (30-36) % RDW 14.1 (11.6-14.8) % Plt Count 244 (150-400) X10^3/uL Neut % (Auto) 93.3 H (50-75) % Lymph % (Auto) 4.6 L (25-40) % Titus % (Auto) 1.9 L (3-14) % Eos % (Auto) 0.0 L (2-4) % Baso % (Auto) 0.2 (0-2) % Neut # (Auto) 6500 (4398-0274) /uL Lymph # (Auto) 300 L (7419-9582) /uL Titus # (Auto) 100 (0-900) /uL Eos # (Auto) 0 (0-450) /uL Baso # (Auto) 0 (0-100) /uL PT 12.5 (10.1-12.7) SECONDS INR 1.1 (0.9-1.3) APTT 31 (26.4-36.2) SECONDS Sodium 137 (137-145) mmol/L Potassium 4.0 (3.4-5.1) mmol/L Chloride 106 (98-107) mmol/L Carbon Dioxide 22 (22-32) mmol/L BUN 15 (9-20) mg/dL Creatinine 0.64 L (0.66-1.25) mg/dL Estimated GFR > 60.0 (>60) mL/min BUN/Creatinine Ratio 23.4 H (6-22) Glucose 143 H (70-100) mg/dL Calcium 11.0 H (8.4-10.2) mg/dL Total Bilirubin 1.2 (0.2-1.3) mg/dL AST 25 (17-59) IU/L ALT 33 (<50) IU/L Alkaline Phosphatase 55 (38-126) U/L Total Protein 8.1 (6.3-8.2) g/dL Albumin 4.9 (3.5-5.0) g/dL Globulin 3.2 (1.7-4.1) g/dL Albumin/Globulin Ratio 1.5 (1.0-2.8) Lipase 23 (23-300) U/L Imaging Data CT scan - abdomen/pelvis: Radiologist's Impression: [address] [id number] Scan ReportSigned Patient: Huang Leahy AMR#: [id number]: 1960cct:[id number]/Sex: 59 / MDate of Service: 05/25/20Loc: EDAccession Number: [id number] Procedure: CT abdomen pelvis w con Ordering Provider: Saira Newton PROCEDURE: CT ABDOMEN PELVIS W CON INDICATIONS: Abd pain, RLQ LLQ TECHNIQUE: After the administration of intravenous contrast, 5 mm thick sections acquired from the diaphragm to the symphysis. 5 mm coronal and sagittal reformats were acquired. For radiation dose reduction, the following was used: automated exposure control, adjustment of mA and/or kV according to patient size. COMPARISON: [facility], CT, CT ABDOMEN PELVIS W CON, 03/18/2020, 11:49. FINDINGS: Image quality: Excellent. ABDOMEN: Lung bases: Lung bases are clear. Heart size is normal. Solid organs: Liver is normal in size and enhancement. Gallbladder is contracted, within normal limits. Biliary system is non dilated. Pancreas enhances normally. Spleen is normal in size and enhancement. No adrenal nodules. Kidneys demonstrate normal size and enhancement, without hydronephrosis. Peritoneum and bowel: Bowel loops demonstrate normal wall thickness and caliber. No free fluid or air. Scattered diverticulosis without evidence of diverticulitis. Nodes and vessels: No retroperitoneal or mesenteric adenopathy by size cr iteria. Aorta and inferior vena cava are normal in size. Miscellaneous: No ventral hernias. PELVIS: Genitourinary: Bladder wall thickness is normal. Miscellaneous: No inguinal hernias or adenopathy. Bones: No suspicious bony lesions. No vertebral body compression fractures. Remote bilateral SI joint fusion and extensive thoracolumbar fusion. IMPRESSION: 1. No evidence of acute abdominal process. 2. Scattered diverticulosis. Dictated by: Yamil Funes M.D. on 05/25/2020 at 12:52 Approved by: Yamil Funes M.D. on 05/25/2020 at 12:59 ECG Data Interpretation: 1140: Rate 91, IL interval 166, QTC 420. No ST elevation or ST depression. No ectopy. T-wave inversion noted in V1. EKG also viewed by Dr. Mulligan per protocol. MDM Narrative Medical decision making narrative: 59-year-old male presenting to the emergency department for a worsening episode of chronic nausea vomiting. I suspect this is most likely related to his Schatzki's ring and/or may be a component of cyclic vomiting. CT negative for any concerning findings. Patient does not appear to have an acute abdomen, he is afebrile and non tachycardic, no white count. Patient had improved abdominal pain in cessation of nausea and vomiting after administration of Zofran. Electrolytes within normal limits. Patient was able to tolerate p.o. oral fluids prior to discharge. He was encouraged to contact his GI specialist to request a sooner appointment. Patient was prescribed ondansetron to help with symptoms. Return precautions given for new or worsening symptoms. He agrees to plan of care verbalized understanding. <Mary Kay Mulligan MD - Last Filed: 05/26/20 07:34> Lab Data Labs: Lab Results 05/25/20 05/25/20 05/25/20 Range/Units 11:35 11:35 11:35 WBC 7.0 (4.5-11.0) X10^3/uL RBC 4.93 (4.5-5.9) X10^6/uL Hgb 15.4 (13.5-17.5) g/dL Hct 44.4 (41-53) % MCV 90.1 (80-100) fL MCH 31.2 (26-34) PG MCHC 34.7 (30-36) % RDW 14.1 (11.6-14.8) % Plt Count 244 (150-400) X10^3/uL Neut % (Auto) 93.3 H (50-75) % Lymph % (Auto) 4.6 L (25-40) % Titus % (Auto) 1.9 L (3-14) % Eos % (Auto) 0.0 L (2-4) % Baso % (Auto) 0.2 (0-2) % Neut # (Auto) 6500 (5740-9170) /uL Lymph # (Auto) 300 L (5804-2900) /uL Titus # (Auto) 100 (0-900) /uL Eos # (Auto) 0 (0-450) /uL Baso # (Auto) 0 (0-100) /uL PT 12.5 (10.1-12.7) SECONDS INR 1.1 (0.9-1.3) APTT 31 (26.4-36.2) SECONDS Sodium 137 (137-145) mmol/L Potassium 4.0 (3.4-5.1) mmol/L Chloride 106 (98-107) mmol/L Carbon Dioxide 22 (22-32) mmol/L BUN 15 (9-20) mg/dL Creatinine 0.64 L (0.66-1.25) mg/dL Estimated GFR > 60.0 (>60) mL/min BUN/Creatinine Ratio 23.4 H (6-22) Glucose 143 H (70-100) mg/dL Calcium 11.0 H (8.4-10.2) mg/dL Total Bilirubin 1.2 (0.2-1.3) mg/dL AST 25 (17-59) IU/L ALT 33 (<50) IU/L Alkaline Phosphatase 55 (38-126) U/L Total Protein 8.1 (6.3-8.2) g/dL Albumin 4.9 (3.5-5.0) g/dL Globulin 3.2 (1.7-4.1) g/dL Albumin/Globulin Ratio 1.5 (1.0-2.8) Lipase 23 (23-300) U/L Discharge Plan Departure Patient Disposition: Home Clinical Impression: Nausea & vomiting Qualifiers: Vomiting type: unspecified Vomiting Intractability: non-intractable Qualified Code(s): R11.2 - Nausea with vomiting, unspecified Instructions: Nausea and Vomiting-Adult Activity Restrictions/Additional Instructions: Thank you for entrusting me with your care today. As discussed, your CT scan and laboratory work are negative for any concerning findings. I strongly suggest following up with your GI specialist, given a call either today or tomorrow and see if you can move your appointment sooner. I prescribed you some nausea medication, take this as needed. The ondansetron was sent to [facility] in [place] I also recommend taking omeprazole 20 mg in the morning for the next 14 days, can be purchased [id number]. Return emergency department for any new or worsening symptoms such as severe pain, uncontrollable vomiting, high fevers, or any other concerns. Prescriptions: New ondansetron 4 mg tablet,disintegrating 4 mg PO Q6H PRN (Reason: nausea and vomiting) Qty: 14 RF: 0 No Action metronidazole 500 mg tablet 500 mg PO TID RF: 0 acetaminophen-codeine 300-30 mg tablet 1 tab PO Q4-6H PRN (Reason: pain) RF: 0 amlodipine 5 mg tablet 5 mg PO DAILY RF: 0 ciprofloxacin HCl 500 mg tablet 500 mg PO BID RF: 0 vancomycin 125 mg capsule 125 mg PO QID RF: 0 ondansetron 4 mg tablet,disintegrating 4 mg PO Q4-6H PRN (Reason: Nausea) RF: 0 atenolol 50 mg tablet 100 mg PO DAILY RF: 0 amoxicillin-pot clavulanate 875-125 mg tablet 1 tab PO BID RF: 0 ondansetron 4 mg tablet,disintegrating 4 mg PO Q8H Qty: 10 RF: 0 Referrals: Ирина Weaver MD [Primary Care Provider] - <Mary Kay Mulligan MD - Last Filed: 05/26/20 07:34> [facility] ED Attending Genaroature Attestation: I was immediately available in the department for consultation throughout this patient's visit. I agree with documentation as above. Mary Kay Mulligan MD
[2020-05-25] MEDS: KETOROLAC 60 MG/2 ML VIAL 30 MG IV (12:48)
[2020-05-25] MEDS: METOCLOPRAMIDE 10 MG/2 ML INJ IV (13:32)
[2020-05-25] MEDS: PANTOPRAZOLE 40 MG VIAL IV (13:32)
== END 2020-05-25 15:15 | disposition home or self-care (01) ==
PROVIDERS: Emergency Medicine; Emergency Provider Nurse Practitioner; PCP Family Medicine
DX: R11.2 Nausea with vomiting, unspecified (principal); R10.9 Unspecified abdominal pain; K22.2 Esophageal obstruction
CPT/HCPCS: 36415; 74177; 80053; 83690; 85025; 85610; 85730; 93005; 96361; 96374; 96375; 96376; 99284; C9113; J1885; J2405; J2765; Q9967

== ENCOUNTER 2020-11-29 19:56 | Emergency (ER) | payer OTHER, MEDICAID, SELFPAY ==
[2020-11-29 20:18] VITALS: BP 149/98; PULSE 107; RESP 14; TEMP 37.3; O2SAT 96; BMI 28.3
[2020-11-29 20:55] LABS: Alanine Aminotransferase 20 IU/L (<50); Albumin Globulin Ratio 1.5 (1.0-2.8); Alkaline Phosphatase 58 U/L (38-126); Aspartate Aminotransferase 27 IU/L (17-59); BUN Creatinine Ratio 20.4 (6-22); Bilirubin Total 0.7 mg/dL (0.2-1.3); Blood Urea Nitrogen 21 mg/dL (9-20); Calcium 9.1 mg/dL (8.4-10.2); Carbon Dioxide 25 mmol/L (22-32); Chloride 108 mmol/L (98-107); Estimated Glomerular Filt Rate > 60.0 mL/min (>60); Globulin 2.6 g/dL (1.7-4.1); Glucose 108 mg/dL (80-110); HEMOLYSIS < 15 (0-50); Potassium 4.3 mmol/L (3.4-5.1); Sodium 138 mmol/L (137-145); Total Protein 6.6 g/dL (6.3-8.2)
--- NOTE | 2020-11-29 20:55 | ED_ITS ---
HPI - Abdominal Pain General Chief Complaint: Abdominal Pain Stated Complaint: sore throat, abd bloating pulling on stitches Time Seen by Provider: 11/29/20 20:43 Source: patient Mode of arrival: Ambulatory Limitations: no limitations History of Present Illness HPI narrative: 60-year-old male nonsmoker with history of hypertension presents with his in the chief complaint of some bloating and mild abdominal d iscomfort over the past few days. He recently had a umbilical hernia surgery and feels like he has bloating and tugging at the sutures. His pain is minimal and associated with some decreased bowel movements. He denies any nausea or vomiting. He is passing gas and last bowel movement was prior to his surgery. He denies fever or chills. He denies chest pain or shortness of breath. He denies any dysuria, frequency or urgency. His discomfort is made worse with motion and improves with rest. Additionally, he complains of some burning in his throat that he noticed upon waking up after the surgery. He was intubated for the procedure. He denies any difficulty in swallowing nor swollen lymph nodes. Related Data Home Medications Medication Instructions Recorded Confirmed acetaminophen 300 mg-codeine 30 mg 1 tab PO Q4-6H PRN 03/12/19 tablet amlodipine 5 mg tablet 5 mg PO DAILY 03/12/19 03/12/19 amoxicillin 875 mg-potassium 1 tab PO BID 03/12/19 03/12/19 clavulanate 125 mg tablet atenolol 50 mg tablet 100 mg PO DAILY 03/12/19 03/12/19 ciprofloxacin HCl 500 mg tablet 500 mg PO BID 03/12/19 03/12/19 metronidazole 500 mg tablet 500 mg PO TID 03/12/19 03/12/19 ondansetron 4 mg disintegrating 4 mg PO Q4-6H PRN 03/12/19 03/12/19 tablet vancomycin 125 mg capsule 125 mg PO QID 03/12/19 03/12/19 Previous Rx's Medication Instructions Recorded ondansetron 4 mg disintegrating 4 mg PO Q8H #10 tab 03/18/20 tablet ondansetron 4 mg disintegrating 4 mg PO Q6H PRN #14 tab 05/25/20 tablet amlodipine 5 mg tablet 5 mg PO DAILY #20 tab 11/29/20 Allergies Allergy/AdvReac Type Severity Reaction Status Date / Time amoxicillin [From Augmentin] Allergy Severe Confusion Verified 05/25/20 11:39 barium iodide Allergy Severe Gastrointestinal Verified 05/25/20 11:39 Upset clavulanic acid Allergy Severe Confusion Verified 05/25/20 11:39 [From Augmentin] methadone Allergy Severe Blurry Verified 05/25/20 11:39 Vision Sulfa (Sulfonamide Allergy Severe Rash Verified 05/25/20 11:39 Antibiotics) unknown antibiotic Allergy Uncoded 03/12/19 15:22 Review of Systems Review of Systems Narrative: GENERAL: see HPI HEENT: see HPI RESPIRATORY: Denies dyspnea, cough, wheezing, hemoptysis, sputum. CARDIOVASCULAR: Denies chest pain, palpitations, orthopnea, edema, GASTROINTESTINAL: see HPI : Denies dysuria, frequency, incontinence, hematuria, urinary retention. MUSCULOSKELETAL: denies weakness, joint pain, or bony pain SKIN: Denies rash, skin lesions, or other NEUROLOGIC: Denies weakness, headache, numbness, change in speech, confusion, seizures, incoordination. PSYCHIATRIC: No concerning psychosocial issues. 12 point review of systems is negative except for those stated above Patient History Medical History Clostridium difficile infection Social History Smoking Status: Never smoker Smoking Status: Never smoker alcohol intake frequency: 0-2 drinks per day Substance Use Type: marijuana Exam Narrative Exam Narrative: GENERAL: [[age]] year old patient appears stated age. Well- developed patient, in minimal distress, resting comfortably HEAD: Atraumatic. Normocephalic. EYES: Pupils equal round and reactive. Extraocular motions intact. No scleral icterus. No injection or drainage. ENT: Nose without bleeding, purulent drainage. Throat without erythema, tonsillar hypertrophy or exudate. Airway patent. NECK: Trachea midline. Non tender CARDIOVASCULAR: Regular rate and rhythm without murmurs, gallops, or rubs. RESPIRATORY: Clear to auscultation. Breath sounds equal bilaterally. No wheezes, rales, or rhonchi. GASTROINTESTINAL: Abdomen soft, mild distension, nontender, bowel sounds present in all 4 quadrants, surgical incision is clean, dry and intact EXTREMITIES: No edema or joint tenderness. BACK: Nontender without deformity or crepitance. No flank tenderness. NEURO: AOx3. SKIN: No rash or erythema of visible areas Initial Vital Signs Initial Vital Signs: Vital Signs Temperature 99.2 F 11/29/20 20:18 Pulse Rate 107 H 11/29/20 20:18 Respiratory Rate 14 11/29/20 20:18 Blood Pressure 149/98 H 11/29/20 20:18 Pulse Oximetry 96 11/29/20 20:18 Course Orders Ordered: ED Orders 11/29/20 20:26 CBC Auto Diff [Complete Blood Count AUTO DIFF] Stat Comprehensive Metabolic Panel Stat 11/29/20 20:55 XR abdomen min 2V Stat 11/29/20 21:17 COVID19 -Nasal swab/Pre-Proc Stat Vital Signs Vital signs: Vital Signs - 8 hr 11/29/20 20:18 11/29/20 22:50 Temperature 99.2 F Pulse Rate 107 H 85 Respiratory Rate 14 Blood Pressure 149/98 H 161/94 H Pulse Oximetry 96 94 MDM - Abdominal Pain Lab Data Result diagrams: 11/29/20 20:26 11/29/20 20:26 Labs: Lab Results 11/29/20 11/29/20 11/29/20 Range/Units 20:26 20:26 21:17 WBC 9.4 (4.5-11.0) X10^3/uL RBC 4.61 (4.5-5.9) X10^6/uL Hgb 14.4 (13.5-17.5) g/dL Hct 41.6 (41-53) % MCV 90.2 (80-100) fL MCH 31.2 (26-34) PG MCHC 34.6 (30-36) % RDW 14.4 (11.6-14.8) % Plt Count 245 (150-400) X10^3/uL Neut % (Auto) 79.1 H (50-75) % Lymph % (Auto) 13.7 L (25-40) % [place] % (Auto) 5.8 (3-14) % Eos % (Auto) 0.9 L (2-4) % Baso % (Auto) 0.5 (0-2) % Neut # (Auto) 7400 H (1974-5070) /uL Lymph # (Auto) 1300 (3813-5381) /uL [place] # (Auto) 500 (0-900) /uL Eos # (Auto) 100 (0-450) /uL Baso # (Auto) 0 (0-100) /uL Sodium 138 (137-145) mmol/L Potassium 4.3 (3.4-5.1) mmol/L Chloride 108 H (98-107) mmol/L Carbon Dioxide 25 (22-32) mmol/L BUN 21 H (9-20) mg/dL Creatinine 1.03 (0.66-1.25) mg/dL Estimated GFR > 60.0 (>60) mL/min BUN/Creatinine Ratio 20.4 (6-22) Glucose 108 (80-110) mg/dL Calcium 9.1 (8.4-10.2) mg/dL Total Bilirubin 0.7 (0.2-1.3) mg/dL AST 27 (17-59) IU/L ALT 20 (<50) IU/L Alkaline Phosphatase 58 (38-126) U/L Total Protein 6.6 (6.3-8.2) g/dL Albumin 4.0 (3.5-5.0) g/dL Globulin 2.6 (1.7-4.1) g/dL Albumin/Globulin Ratio 1.5 (1.0-2.8) SARS-CoV-2 (PCR) Negative (Negative) Point of care testing: Point of Care Testing Rapid Strep A Negative Imaging Data Abdominal x-ray: Radiologist's Impression: [address] [id number] ReportSigned Patient: Huang Leahy AMR#: [id number]: 1960cct:[id number]/Sex: 60 / MDate of Service: 11/29/20Loc: EDAccession Number: [id number] Procedure: XR abdomen min 2V Ordering Provider: Rodney Bateman D.O. PROCEDURE: XR ABDOMEN MIN 2V INDICATIONS: abdominal pain, recent hernia surgery TECHNIQUE: 2 views of the abdomen were acquired. COMPARISON: [facility], CT, CT ABDOMEN PELVIS W CON, 05/25/2020, 12:29. FINDINGS: Surgical changes and devices: Postoperative changes of spinal fusion of the imaged thoracic, lumbar and sacral spine as well as the bilateral sacroiliac joints. Bowel: No pneumoperitoneum. The bowel gas pattern is nonobstructive. Large amount of fecal material seen in the ascending colon, proximal transverse colon, and rectum. Soft tissues: No masses; visualized solid organ contours appear normal in size. No suspicious abdominal calcifications. Bones: No suspicious bony abnormalities. IMPRESSION: Nonobstructive bowel gas pattern. Moderate fecal load seen in the region of the ascending colon, proximal transverse colon, and rectum. Findings may be related to constipation. Dictated by: Santos Lakhani M.D. on 11/29/2020 at 21:47 Approved by: Santos Lakhani M.D. on 11/29/2020 at 21:49 [facility] Narrative Medical decision making narrative: patient with recent surgery complains of bloating and a sore throat. Surgical infection, bowel obstruction and others are considered, thought unlikely given such reassuring history, physical exam, labs and imaging. His bloating and abdominal discomfort are most likely due to constipation and increased stool burden from multiple causes including NPO prior to surgery, pain medications, anesthesia, lack of activity in the postoperative phase and dietary change. Extensive discussion with him regarding fluid intake, return to normal diet, activity within recommended limits of surgeon etc.. Sore throat is likely due to intubation. He has no trouble swallowing, rapid strep is negative, no obvious findings on physical exam. Return precautions given, questions answered to his apparent satisfaction Discharge Plan Departure Patient Disposition: Home Clinical Impression: Constipation Qualifiers: Constipation type: unspecified constipation type Qualified Code(s): K59.00 - Constipation, unspecified Instructions: DI for Constipation Activity Restrictions/Additional Instructions: *You have been diagnosed with [abdominal pain with constipation and hypertension] *What to do: *Please continue to take your regular medications as directed. [x ] New medication prescriptions sent to your pharmacy: [[facility] in [place] ] *You have been diagnosed with [ abdominal pain due to constipation ] *What to do: *Take over the counter medications as directed: 1. Metamucil - is a bulk forming laxative and adds fiber 2. Colace - softens your stool 3. Dulcolax suppository - stimulates your bowels *Follow up with your primary care provider in 2-3 days, call for appointment *Return to ER if you should have any new, worsening or concerning symptoms *Drink plenty of water and eat foods high in fiber *Stay as active as you can as this helps move your bowels as well Prescriptions: New amlodipine 5 mg tablet 5 mg PO DAILY Qty: 20 RF: 0 No Action metronidazole 500 mg tablet 500 mg PO TID RF: 0 acetaminophen-codeine 300-30 mg tablet 1 tab PO Q4-6H PRN (Reason: pain) RF: 0 amlodipine 5 mg tablet 5 mg PO DAILY RF: 0 ciprofloxacin HCl 500 mg tablet 500 mg PO BID RF: 0 vancomycin 125 mg capsule 125 mg PO QID RF: 0 ondansetron 4 mg tablet,disintegrating 4 mg PO Q4-6H PRN (Reason: Nausea) RF: 0 atenolol 50 mg tablet 100 mg PO DAILY RF: 0 amoxicillin-pot clavulanate 875-125 mg tablet 1 tab PO BID RF: 0 ondansetron 4 mg tablet,disintegrating 4 mg PO Q8H Qty: 10 RF: 0 ondansetron 4 mg tablet,disintegrating 4 mg PO Q6H PRN (Reason: nausea and vomiting) Qty: 14 RF: 0 Referrals: Ирина Weaver MD [Primary Care Provider] -
[2020-11-29 20:56] LABS: Add Manual Diff / Slide Review NO; Basophils Absolute Auto 0 /uL (0-100); Basophils Percent Auto 0.5 % (0-2); Eosinophils Absolute Auto 100 /uL (0-450); Eosinophils Percent Auto 0.9 % (2-4); Hematocrit 41.6 % (41-53); Hemoglobin 14.4 g/dL (13.5-17.5); Lymphocytes Absolute Auto 1300 /uL (1100-4500); Lymphocytes Percent Auto 13.7 % (25-40); Mean Corpuscular HGB Conc 34.6 % (30-36); Mean Corpuscular Hemoglobin 31.2 PG (26-34); Mean Corpuscular Volume 90.2 fL (80-100); Monocytes Absolute Auto 500 /uL (0-900); Monocytes Percent Auto 5.8 % (3-14); Neutrophils Absolute Auto 7400 /uL (1500-7000); Neutrophils Percent Auto 79.1 % (50-75); Platelet Count 245 X10^3/uL (150-400); Red Blood Cell Count 4.61 X10^6/uL (4.5-5.9); Red Cell Distribution Width 14.4 % (11.6-14.8); White Blood Cell Count 9.4 X10^3/uL (4.5-11.0)
[2020-11-29 21:48] LABS: COVID19 -Nasal RAPID Negative (Negative)
[2020-11-29 22:50] VITALS: BP 161/94; PULSE 85; O2SAT 94
== END 2020-11-29 23:10 | disposition home or self-care (01) ==
PROVIDERS: Emergency Provider Emergency Medicine; PCP Family Medicine
DX: K59.00 Constipation, unspecified (principal); R10.9 Unspecified abdominal pain; Z20.822 Contact with and (suspected) exposure to COVID-19
CPT/HCPCS: 74019; 80053; 85025; 87635; 87880; 99283; C9803

== ENCOUNTER 2021-04-16 19:40 | Emergency (ER) | payer OTHER, MEDICAID, SELFPAY ==
[2021-04-16] VITALS (8 sets, daily range): BP systolic 123–180; BP diastolic 75–104; PULSE 69–117; RESP 14–24; TEMP 37; O2SAT 92–99
--- NOTE | 2021-04-16 20:33 | ED_ITS ---
HPI - Abdominal Pain General Chief Complaint: Abdominal Pain Stated Complaint: abd pain dizzy with bm Time Seen by Provider: 04/16/21 20:06 Source: patient Mode of arrival: Ambulatory History of Present Illness HPI narrative: Patient is a 60-year-old male who suffers from chronic back pain multiple surgeries chronic constipation presenting today with ongoing abdominal pain and dizziness for at least the last 10 days. He said he help somebody do something 10 days ago and things have just not gotten better. He has diffuse abdominal pa in both right and left sides. He actually did have a bowel movement he took some stool softeners for a few days ago seem to help a bit he has not had ever repeat bowel movement. He is occasionally nauseous no vomiting. He also has been feeling dizzy intermittently at does not seem to be related to position. He is currently tachycardic but denies any chest pain or palpitations. Denies any fever or chills. He does have a history of C diff he thought maybe his C diff might be back is he had some ?slime she his last bowel movement. He denies any new numbness tingling or weakness. He has history of neurogenic bladder and uses a catheter does self cath Related Data Home Medications Medication Instructions Recorded Confirmed acetaminophen 300 mg-codeine 30 mg 1 tab PO Q4-6H PRN 03/12/19 tablet amlodipine 5 mg tablet 5 mg PO DAILY 03/12/19 03/12/19 amoxicillin 875 mg-potassium 1 tab PO BID 03/12/19 03/12/19 clavulanate 125 mg tablet atenolol 50 mg tablet 100 mg PO DAILY 03/12/19 03/12/19 ciprofloxacin HCl 500 mg tablet 500 mg PO BID 03/12/19 03/12/19 metronidazole 500 mg tablet 500 mg PO TID 03/12/19 03/12/19 ondansetron 4 mg disintegrating 4 mg PO Q4-6H PRN 03/12/19 03/12/19 tablet vancomycin 125 mg capsule 125 mg PO QID 03/12/19 03/12/19 Previous Rx's Medication Instructions Recorded ondansetron 4 mg disintegrating 4 mg PO Q8H #10 tab 03/18/20 tablet ondansetron 4 mg disintegrating 4 mg PO Q6H PRN #14 tab 05/25/20 tablet amlodipine 5 mg tablet 5 mg PO DAILY #20 tab 11/29/20 metoclopramide HCl 10 mg tablet 10 mg PO Q6H PRN #20 tab 04/16/21 (Reglan) Allergies Allergy/AdvReac Type Severity Reaction Status Date / Time amoxicillin [From Augmentin] Allergy Severe Confusion Verified 05/25/20 11:39 barium iodide Allergy Severe Gastrointestinal Verified 05/25/20 11:39 Upset clavulanic acid Allergy Severe Confusion Verified 05/25/20 11:39 [From Augmentin] methadone Allergy Severe Blurry Verified 05/25/20 11:39 Vision Sulfa (Sulfonamide Allergy Severe Rash Verified 05/25/20 11:39 Antibiotics) unknown antibiotic Allergy Uncoded 03/12/19 15:22 Review of Systems Review of Systems Narrative: GENERAL: Denies chills, fatigue, malaise, fever, sweats, travel HEENT: Denies sinus pain, ear pain, sore throat, difficulty swallowing, neck pain RESPIRATORY: Denies dyspnea, cough, wheezing, hemoptysis, sputum. CARDIOVASCULAR: Denies chest pain, palpitations, orthopnea, edema GASTROINTESTINAL: See HPI : Denies dysuria, frequency, incontinence, hematuria, urinary retention, flank pain. MUSCULOSKELETAL: Denies weakness, joint pain, or bony pain SKIN: No rash, no erythema, no pruritus NEUROLOGIC: + dizziness, see HPI PSYCHIATRIC: No concerning psychosocial issues. 12 point review of systems is negative except for those stated above and HPI Patient History Medical History (Updated 04/16/21 @ 23:25 by Kyara Villalobos DO) Clostridium difficile infection Social History Smoking Status: Never smoker Smoking Status: Never smoker alcohol intake frequency: 0-2 drinks per day Substance Use Type: marijuana Exam Initial Vital Signs Initial Vital Signs: Vital Signs Temperature 98.6 F 04/16/21 19:49 Pulse Rate 117 H 04/16/21 19:49 Respiratory Rate 20 04/16/21 19:49 Blood Pressure 180/104 H 04/16/21 19:49 Pulse Oximetry 96 04/16/21 19:49 GENERAL: Well-appearing, well-nourished and in no acute distress. HEENT: Head atraumatic,EOMI, pupils reactive, no nystagmus, face symmetric, moist mucous membranes CARDIOVASCULAR: Tachycardic regular no murmur RESPIRATORY: Breath sounds equal bilaterally, no wheezes rales or rhonchi. ABDOMEN: Soft, nontender. Normoactive bowel sounds all 4 quadrants. No guarding or rebound. EXTREMITIES: Normal range of motion, no clubbing or edema. Neurovascularly intact NEUROLOGICAL: Alert and oriented x4.Normal gait and speech. Cranial nerves II through XII grossly intact. Good hasjtz-[id number]-bcdp, good qehk-iq-droi, strength equal bilaterally, no dysarthria or aphasia, sensation in tact to soft touch bilaterally, no visual changes, no facial droop SKIN: Warm, dry, no laceration, no petechiae, no rashes or lesions. Scores NIH Stroke Scale Level of Conciousness: Alert, keenly responsive Ask month/age: Answers both questions correctly. Open/close eyes, close hand: Performs both tasks correctly Best gaze horizontal: Normal Visual fish: No visual loss Facial palsy: Normal symetrical movement Left arm drift: No drift for full 10 sec Right arm drift: No drift for full 10 sec Left leg drift: No drift for full 5 sec Right leg drift: No drift for full 5 sec Limb ataxia: Absent Sensory on face/arms/legs: Normal, no sensory loss Best language: No aphasia, normal Dysarthria: Normal Extinction or inattention: No abnormality Total NIH Stroke scale score: 0 Course Orders Ordered: ED Orders 04/16/21 20:30 Complete Blood Count AUTO DIFF Stat Comprehensive Metabolic Panel Stat Lactate (Lactic Acid) Stat Lipase Stat Troponin & CK Cardiac Panel Stat 04/16/21 20:51 CT abdomen pelvis w con Stat CT head/brain wo con Stat 04/16/21 23:07 Urine Microscopic Stat Discontinued Medications Sodium Chloride (Normal Saline 0.9%) 1,000 mls @ 1,000 mls/hr IV BOLUS ONE Stop: 04/16/21 21:51 Last Infusion: 04/16/21 22:53 Dose: 0 mls/hr Documented by: JOSE ANGEL Admin: 04/16/21 21:41 Dose: 1,000 mls/hr Documented by: JOSE ANGEL Vital Signs Vital signs: Vital Signs - 8 hr 04/16/21 21:00 04/16/21 21:16 04/16/21 21:30 Pulse Rate 101 H 93 H 99 H Respiratory Rate 14 21 14 Blood Pressure 157/98 H 145/88 H Pulse Oximetry 92 97 94 04/16/21 22:00 04/16/21 22:30 04/16/21 23:51 Pulse Rate 93 H 84 69 Respiratory Rate 20 24 18 Blood Pressure 123/81 128/78 123/75 Pulse Oximetry 94 95 99 MDM - Abdominal Pain Lab Data Result diagrams: 04/16/21 20:30 04/16/21 20:30 Labs: Lab Results 04/16/21 04/16/21 04/16/21 Range/Units 20:30 20:30 20:30 WBC 7.0 (4.5-11.0) X10^3/uL RBC 5.46 (4.5-5.9) X10^6/uL Hgb 16.9 (13.5-17.5) g/dL Hct 48.6 (41-53) % MCV 88.9 (80-100) fL MCH 30.9 (26-34) PG MCHC 34.7 (30-36) % RDW 13.9 (11.6-14.8) % Plt Count 256 (150-400) X10^3/uL Neut % (Auto) 80.3 H (50-75) % Lymph % (Auto) 10.8 L (25-40) % [place] % (Auto) 5.3 (3-14) % Eos % (Auto) 1.9 L (2-4) % Baso % (Auto) 1.7 (0-2) % Neut # (Auto) 5600 (3126-4137) /uL Lymph # (Auto) 800 L (6438-8550) /uL [place] # (Auto) 400 (0-900) /uL Eos # (Auto) 100 (0-450) /uL Baso # (Auto) 100 (0-100) /uL Sodium 138 (137-145) mmol/L Potassium 4.2 (3.4-5.1) mmol/L Chloride 102 (98-107) mmol/L Carbon Dioxide 26 (22-32) mmol/L BUN 16 (9-20) mg/dL Creatinine 0.96 (0.66-1.25) mg/dL Estimated GFR > 60.0 (>60) mL/min BUN/Creatinine Ratio 16.7 (6-22) Glucose 100 (80-110) mg/dL Lactate (0.7-2.1) mmol/L Calcium 10.3 H (8.4-10.2) mg/dL Total Bilirubin 1.1 (0.2-1.3) mg/dL AST 24 (17-59) IU/L ALT 26 (<50) IU/L Alkaline Phosphatase 58 (38-126) U/L Total Creatine Kinase 49 L (55-170) U/L CK-MB (CK-2) TNP CK-MB (CK-2) Rel Index TNP Troponin I < 0.012 (0.01-0.034) ng/mL Total Protein 7.7 (6.3-8.2) g/dL Albumin 4.9 (3.5-5.0) g/dL Globulin 2.8 (1.7-4.1) g/dL Albumin/Globulin Ratio 1.8 (1.0-2.8) Lipase 268 (23-300) U/L Urine RBC (0-5/HPF) Urine WBC (0-5/HPF) Ur Squamous Epith Cells (0-5/HPF) Urine Bacteria (None) Ur Culture Indicated? 04/16/21 04/16/21 Range/Units 20:30 23:07 WBC (4.5-11.0) X10^3/uL RBC (4.5-5.9) X10^6/uL Hgb (13.5-17.5) g/dL Hct (41-53) % MCV (80-100) fL MCH (26-34) PG MCHC (30-36) % RDW (11.6-14.8) % Plt Count (150-400) X10^3/uL Neut % (Auto) (50-75) % Lymph % (Auto) (25-40) % [place] % (Auto) (3-14) % Eos % (Auto) (2-4) % Baso % (Auto) (0-2) % Neut # (Auto) (3060-0957) /uL Lymph # (Auto) (9909-4056) /uL [place] # (Auto) (0-900) /uL Eos # (Auto) (0-450) /uL Baso # (Auto) (0-100) /uL Sodium (137-145) mmol/L Potassium (3.4-5.1) mmol/L Chloride (98-107) mmol/L Carbon Dioxide (22-32) mmol/L BUN (9-20) mg/dL Creatinine (0.66-1.25) mg/dL Estimated GFR (>60) mL/min BUN/Creatinine Ratio (6-22) Glucose (80-110) mg/dL Lactate 1.4 (0.7-2.1) mmol/L Calcium (8.4-10.2) mg/dL Total Bilirubin (0.2-1.3) mg/dL AST (17-59) IU/L ALT (<50) IU/L Alkaline Phosphatase (38-126) U/L Total Creatine Kinase (55-170) U/L CK-MB (CK-2) CK-MB (CK-2) Rel Index Troponin I (0.01-0.034) ng/mL Total Protein (6.3-8.2) g/dL Albumin (3.5-5.0) g/dL Globulin (1.7-4.1) g/dL Albumin/Globulin Ratio (1.0-2.8) Lipase (23-300) U/L Urine RBC 0-1/hpf (0-5/HPF) Urine WBC 0-1/hpf (0-5/HPF) Ur Squamous Epith Cells 0-1 /hpf (0-5/HPF) Urine Bacteria Occasional (0-1) D (None) Ur Culture Indicated? Cult not indicated Point of care testing: Urine Dip Bedside Urine Glucose Negative Bedside Urine Bilirubin - Negative Bedside Urine Ketone - Negative Urine Specific [place] 1.015 Bedside Urine Occult Blood +/- Bedside Urine pH 6.0 Bedside Urine Protein - Negative Bedside Urine Urobilinogen - Negative Bedside Urine Nitrite - Negative Bedside Urine Leukocytes - Negative Esterase Imaging Data CT scan - head: Radiologist's Impression: PROCEDURE:? CT HEAD/BRAIN WO CON ? INDICATIONS:? dizzy ? TECHNIQUE:? Noncontrast 4.5 mm thick angled axial sections acquired from the foramen magnum to the vertex, with coronal and sagittal reformats.? For radiation dose reduction, the following was used:? automated exposure control, adjustment of mA and/or kV according to patient size.? ? COMPARISON:? None. ? FINDINGS:? Image quality:? Excellent.? ? CSF spaces:? Basal cisterns are patent.? No extra-axial fluid collections.? The ventricles are symmetric in size and shape.? ? Brain:? No intracranial bleeds or masses.? There is cerebral volume loss for age, with resultant ventricular and sulcal prominence.? There are periventricular and deep white matter chronic small vessel ischemic changes.? There is intracranial internal carotid artery atherosclerosis.? ? Skull and face:? Calvarium and visualized facial bones appear intact, without suspicious lesions.? ? Sinuses:? Visualized sinuses and mastoids are clear.? ? IMPRESSION:? No acute intracranial process. ? Dictated by: Case Casillas M.D. on 04/16/2021 at 21:28 ? ? CT scan - abdomen/pelvis: Radiologist's Impression: PROCEDURE:? CT ABDOMEN PELVIS W CON ? INDICATIONS:? ab pain hx constipation ? TECHNIQUE:? After the administration of intravenous contrast, axial sections acquired from the lung bases to the pubic symphysis.? Coronal and sagittal reformats were performed.? For radiation dose reduction, the following was used:? automated exposure control, adjustment of mA and/or kV according to patient size.? ? COMPARISON:? [facility], CT, CT ABDOMEN PELVIS W CON, 05/25/2020, 12:29. ? FINDINGS: ABDOMEN:? Lung bases:? No acute findings. Heart:? No pericardial effusion. Normal in size.? Moderate coronary artery calcifications. ? Liver:? Mild hepatic steatosis Gallbladder:? Decompressed otherwise unremarkable Bile ducts: Normal. Pancreas:? Fatty infiltration/atrophy Spleen: Normal.? Adrenals: Normal. Kidneys and Ureters:? Bilateral renal scarring/atrophy.? No hydronephrosis.? Simple appearing left renal cyst measuring 4 cm. Subcentimeter renal foci, statistically cysts, although technically too small to characterize accurately and therefore nonspecific. Stomach and duodenum:? Possible trace hiatal hernia. Bowel:? Incidental colonic diverticula.? The appendix appears normal.? No evidence of bowel obstruction.? There is mild to moderate stool Other:? No free fluid or air.? Abdominal nodes:? Normal. Aorta and IVC: Normal in size.? ? Ventral wall: Normal. ? PELVIS:? ? Bladder and reproductive: Unremarkable.? Inguinal region: No hernia.? Pelvic nodes: Normal.? ? Bones:? No suspicious bony lesions.? No vertebral body compression fractures. Diffuse spondylytic changes and facet disease.? There is extensive artifact from thoracolumbar spinal fixation hardware which partially obscures the area ? ? IMPRESSION: ? No evidence of bowel obstruction.? Mild to moderate stool. ? Overall, no acute abnormality ? Additional chronic and incidental findings as above.? ? ? Dictated by: Case Casillas M.D. on 04/16/2021 at 21:30 ? ? [facility] Narrative Medical decision making narrative: Patient no longer is feeling dizzy he has no chest pain or heart palpitations she sinus rhythm on the monitor. He says he actually took laxative medication 3 times yesterday and then his abdominal pain intensified. He had a bowel movement this morning overall he is feeling better. Blood work is reassuring. He has no neurologic deficits. Head CT and abdominal CT are negative. At this time he overall feels better. UA does not show any sign of infection. At this time recommend outpatient follow-up. Discharge Plan Departure Patient Disposition: Home Clinical Impression: Abdominal pain Instructions: DI for Abdominal Pain-Adult Activity Restrictions/Additional Instructions: *You have been diagnosed with abdominal pain *What to do: I do think some of your abdominal pain may be from your increased laxative yesterday. *Continue to take medications as directed *Follow up with your primary care provider in 2-3 days *Return to ER if you should have increasing dizziness, worsening abdominal pain, nausea vomiting or fever any new, worsening or concerning symptoms Prescriptions: New metoclopramide HCl [Reglan] 10 mg tablet 10 mg PO Q6H PRN (Reason: nausea and vomiting) Qty: 20 0RF No Action metronidazole 500 mg tablet 500 mg PO TID 0RF acetaminophen-codeine 300-30 mg tablet 1 tab PO Q4-6H PRN (Reason: pain) 0RF amlodipine 5 mg tablet 5 mg PO DAILY 0RF ciprofloxacin HCl 500 mg tablet 500 mg PO BID 0RF vancomycin 125 mg capsule 125 mg PO QID 0RF ondansetron 4 mg tablet,disintegrating 4 mg PO Q4-6H PRN (Reason: Nausea) 0RF atenolol 50 mg tablet 100 mg PO DAILY 0RF amoxicillin-pot clavulanate 875-125 mg tablet 1 tab PO BID 0RF ondansetron 4 mg tablet,disintegrating 4 mg PO Q8H Qty: 10 0RF ondansetron 4 mg tablet,disintegrating 4 mg PO Q6H PRN (Reason: nausea and vomiting) Qty: 14 0RF amlodipine 5 mg tablet 5 mg PO DAILY Qty: 20 0RF Referrals: Ирина Weaver MD [Primary Care Provider] -
[2021-04-16 20:40] LABS: Add Manual Diff / Slide Review NO; Basophils Absolute Auto 100 /uL (0-100); Basophils Percent Auto 1.7 % (0-2); Eosinophils Absolute Auto 100 /uL (0-450); Eosinophils Percent Auto 1.9 % (2-4); Hematocrit 48.6 % (41-53); Hemoglobin 16.9 g/dL (13.5-17.5); Lymphocytes Absolute Auto 800 /uL (1100-4500); Lymphocytes Percent Auto 10.8 % (25-40); Mean Corpuscular HGB Conc 34.7 % (30-36); Mean Corpuscular Hemoglobin 30.9 PG (26-34); Mean Corpuscular Volume 88.9 fL (80-100); Monocytes Absolute Auto 400 /uL (0-900); Monocytes Percent Auto 5.3 % (3-14); Neutrophils Absolute Auto 5600 /uL (1500-7000); Neutrophils Percent Auto 80.3 % (50-75); Platelet Count 256 X10^3/uL (150-400); Red Blood Cell Count 5.46 X10^6/uL (4.5-5.9); Red Cell Distribution Width 13.9 % (11.6-14.8)
[2021-04-16 20:51] LABS: Creatine Kinase 49 U/L (55-170)
--- NOTE | 2021-04-16 20:51 | DI.CT.S_ITS ---
PROCEDURE: CT ABDOMEN PELVIS W CON INDICATIONS: ab pain hx constipation TECHNIQUE: After the administration of intravenous contrast, axial sections acquired from the lung bases to the pubic symphysis. Coronal and sagittal reformats were performed. For radiation dose reduction, the following was used: automated exposure control, adjustment of mA and/or kV according to patient size. COMPARISON: [facility], CT, CT ABDOMEN PELVIS W CON, 05/25/2020, 12:29. FINDINGS: ABDOMEN: Lung bases: No acute findings. Heart: No pericardial effusion. Normal in size. Moderate coronary artery calcifications. Liver: Mild hepatic steatosis Gallbladder: Decompressed otherwise unremarkable Bile ducts: Normal. Pancreas: Fatty infiltration/atrophy Spleen: Normal. Adrenals: Normal. Kidneys and Ureters: Bilateral renal scarring/atrophy. No hydronephrosis. Simple appearing left renal cyst measuring 4 cm. Subcentimeter renal foci, statistically cysts, although technically too small to characterize accurately and therefore nonspecific. Stomach and duodenum: Possible trace hiatal hernia. Bowel: Incidental colonic diverticula. The appendix appears normal. No evidence of bowel obstruction. There is mild to moderate stool Other: No free fluid or air. Abdominal nodes: Normal. Aorta and IVC: Normal in size. Ventral wall: Normal. PELVIS: Bladder and reproductive: Unremarkable. Inguinal region: No hernia. Pelvic nodes: Normal. Bones: No suspicious bony lesions. No vertebral body compression fractures. Diffuse spondylytic changes and facet disease. There is extensive artifact from thoracolumbar spinal fixation hardware which partially obscures the area IMPRESSION: No evidence of bowel obstruction. Mild to moderate stool. Overall, no acute abnormality Additional chronic and incidental findings as above. Dictated by: Case Casillas M.D. on 04/16/2021 at 21:30 Approved by: Case Casillas M.D. on 04/16/2021 at 21:37
--- NOTE | 2021-04-16 20:51 | DI.CT.S_ITS ---
PROCEDURE: CT HEAD/BRAIN WO CON INDICATIONS: dizzy TECHNIQUE: Noncontrast 4.5 mm thick angled axial sections acquired from the foramen magnum to the vertex, with coronal and sagittal reformats. For radiation dose reduction, the following was used: automated exposure control, adjustment of mA and/or kV according to patient size. COMPARISON: None. FINDINGS: Image quality: Excellent. CSF spaces: Basal cisterns are patent. No extra-axial fluid collections. The ventricles are symmetric in size and shape. Brain: No intracranial bleeds or masses. There is cerebral volume loss for age, with resultant ventricular and sulcal prominence. There are periventricular and deep white matter chronic small vessel ischemic changes. There is intracranial internal carotid artery atherosclerosis. Skull and face: Calvarium and visualized facial bones appear intact, without suspicious lesions. Sinuses: Visualized sinuses and mastoids are clear. IMPRESSION: No acute intracranial process. Dictated by: Case Casillas M.D. on 04/16/2021 at 21:28 Approved by: Case Casillas M.D. on 04/16/2021 at 21:30
[2021-04-16 20:53] LABS: Alanine Aminotransferase 26 IU/L (<50); Albumin 4.9 g/dL (3.5-5.0); Albumin Globulin Ratio 1.8 (1.0-2.8); Alkaline Phosphatase 58 U/L (38-126); Aspartate Aminotransferase 24 IU/L (17-59); BUN Creatinine Ratio 16.7 (6-22); Bilirubin Total 1.1 mg/dL (0.2-1.3); Blood Urea Nitrogen 16 mg/dL (9-20); Calcium 10.3 mg/dL (8.4-10.2); Carbon Dioxide 26 mmol/L (22-32); Chloride 102 mmol/L (98-107); Estimated Glomerular Filt Rate > 60.0 mL/min (>60); Globulin 2.8 g/dL (1.7-4.1); Glucose 100 mg/dL (80-110); HEMOLYSIS < 15 (0-50); Lipase 268 U/L (23-300); Potassium 4.2 mmol/L (3.4-5.1); Sodium 138 mmol/L (137-145); Total Protein 7.7 g/dL (6.3-8.2)
[2021-04-16 21:02] LABS: Lactate (Lactic Acid) 1.4 mmol/L (0.7-2.1)
[2021-04-16 21:04] LABS: Troponin I < 0.012 ng/mL (0.01-0.034)
[2021-04-16] MEDS: SODIUM CHLORIDE 0.9% 1,000 ML 1000 ML IV (21:41)
[2021-04-16 23:20] LABS: Bacteria Urine Occasional (0-1); RBC Urine 0-1/HPF (0-5/HPF); Squamous Epithelial Cell Urine 0-1 /HPF (0-5/HPF); WBC Urine 0-1/HPF (0-5/HPF)
[2021-04-16 23:21] LABS: Culture Indicated Urine Cult Not Indicated
== END 2021-04-16 23:51 | disposition home or self-care (01) ==
PROVIDERS: Emergency Provider Emergency Medicine; PCP Family Medicine
DX: R10.9 Unspecified abdominal pain (principal); R42 Dizziness and giddiness
CPT/HCPCS: 36415; 70450; 74177; 80053; 81003; 81015; 82550; 83605; 83690; 84484; 85025; 99284; Q9967

== ENCOUNTER 2021-05-09 18:29 | Emergency (ER) | payer OTHER, MEDICAID, SELFPAY ==
[2021-05-09 18:36] VITALS: BP 140/98; PULSE 99; RESP 18; TEMP 36.6; O2SAT 96
[2021-05-09 19:23] LABS: Add Manual Diff / Slide Review NO; Basophils Absolute Auto 0 /uL (0-100); Basophils Percent Auto 0.5 % (0-2); Eosinophils Absolute Auto 100 /uL (0-450); Eosinophils Percent Auto 1.2 % (2-4); Hematocrit 48.4 % (41-53); Hemoglobin 16.7 g/dL (13.5-17.5); Lymphocytes Absolute Auto 900 /uL (1100-4500); Lymphocytes Percent Auto 12.4 % (25-40); Mean Corpuscular HGB Conc 34.5 % (30-36); Mean Corpuscular Hemoglobin 30.6 PG (26-34); Mean Corpuscular Volume 88.8 fL (80-100); Monocytes Absolute Auto 400 /uL (0-900); Neutrophils Absolute Auto 5500 /uL (1500-7000); Neutrophils Percent Auto 79.9 % (50-75); Platelet Count 256 X10^3/uL (150-400); Red Blood Cell Count 5.45 X10^6/uL (4.5-5.9); White Blood Cell Count 6.9 X10^3/uL (4.5-11.0)
--- NOTE | 2021-05-09 19:26 | ED.ABDPAIN ---
HPI - Abdominal Pain General Chief Complaint: Abdominal Pain Stated Complaint: STOMACH PAIN NAUSEA Time Seen by Provider: 05/09/21 19:07 Source: patient Mode of arrival: Ambulatory History of Present Illness HPI narrative: Patient is a 60-year-old male who suffers from chronic back pain with multiple surgeries, chronic constipation ongoing abdominal pain for the last 4-5 weeks, however today he is having some mild diarrhea and increasing abdominal pain. He has a ventral hernia which easily disappears when he lies down however he says it hurts. He states he has had it for a very long time but now it hurts. He has had 2-3 episodes of diarrhea over last few days. He feels like he is having some all over abdominal pain may be more in left lower quadrant. WHe was sent in by the GI nurse for evaluation with increasing abdominal pain. Related Data Home Medications Medication Instructions Recorded Confirmed acetaminophen 300 mg-codeine 30 mg 1 tab PO Q4-6H PRN 03/12/19 tablet amlodipine 5 mg tablet 5 mg PO DAILY 03/12/19 03/12/19 amoxicillin 875 mg-potassium 1 tab PO BID 03/12/19 03/12/19 clavulanate 125 mg tablet atenolol 50 mg tablet 100 mg PO DAILY 03/12/19 03/12/19 ciprofloxacin HCl 500 mg tablet 500 mg PO BID 03/12/19 03/12/19 metronidazole 500 mg tablet 500 mg PO TID 03/12/19 03/12/19 ondansetron 4 mg disintegrating 4 mg PO Q4-6H PRN 03/12/19 03/12/19 tablet vancomycin 125 mg capsule 125 mg PO QID 03/12/19 03/12/19 Previous Rx's Medication Instructions Recorded ondansetron 4 mg disintegrating 4 mg PO Q8H #10 tab 03/18/20 tablet ondansetron 4 mg disintegrating 4 mg PO Q6H PRN #14 tab 05/25/20 tablet amlodipine 5 mg tablet 5 mg PO DAILY #20 tab 11/29/20 metoclopramide HCl 10 mg tablet 10 mg PO Q6H PRN #20 tab 04/16/21 (Reglan) Allergies Allergy/AdvReac Type Severity Reaction Status Date / Time amoxicillin [From Augmentin] Allergy Severe Confusion Verified 05/25/20 11:39 barium iodide Allergy Severe Gastrointestinal Verified 05/25/20 11:39 Upset clavulanic acid Allergy Severe Confusion Verified 05/25/20 11:39 [From Augmentin] methadone Allergy Severe Blurry Verified 05/25/20 11:39 Vision Sulfa (Sulfonamide Allergy Severe Rash Verified 05/25/20 11:39 Antibiotics) unknown antibiotic Allergy Uncoded 03/12/19 15:22 Review of Systems Review of Systems Narrative: GENERAL: Denies chills, fatigue, malaise, fever, sweats, travel HEENT: Denies sinus pain, ear pain, sore throat, difficulty swallowing, neck pain RESPIRATORY: Denies dyspnea, cough, wheezing, hemoptysis, sputum. CARDIOVASCULAR: Denies chest pain, palpitations, orthopnea, edema GASTROINTESTINAL: See HPI : Denies dysuria, frequency, incontinence, hematuria, urinary retention, flank pain. MUSCULOSKELETAL: Denies weakness, joint pain, or bony pain SKIN: No rash, no erythema, no pruritus NEUROLOGIC: Denies weakness, dizziness, headache, numbness, change in speech, confusion PSYCHIATRIC: No concerning psychosocial issues. 12 point review of systems is negative except for those stated above and HPI Patient History Medical History (Updated 05/09/21 @ 21:22 by Kyara Villalobos DO) Clostridium difficile infection Social History Smoking Status: Never smoker Smoking Status: Never smoker alcohol intake frequency: 0-2 drinks per day Substance Use Type: marijuana Exam Initial Vital Signs Initial Vital Signs: Vital Signs Temperature 97.9 F 05/09/21 18:36 Pulse Rate 99 H 05/09/21 18:36 Respiratory Rate 18 05/09/21 18:36 Blood Pressure 140/98 H 05/09/21 18:36 Pulse Oximetry 96 05/09/21 18:36 GENERAL: Alert well-appearing 6-year-old male and in no acute distress. HEENT: Head atraumatic,EOMI, pupils reactive, face symmetric, [moist] mucous membranes CARDIOVASCULAR: Regular rate and rhythm without murmurs, rubs or gallops. RESPIRATORY: Breath sounds equal bilaterally, no wheezes rales or rhonchi. ABDOMEN: Soft, tender in left lower quadrant no guarding or rebound ventral hernia present when he sits disappears when he lies down, easily reducible : No CVA tenderness EXTREMITIES: Normal range of motion, no clubbing or edema. Neurovascularly intact NEUROLOGICAL: Alert and oriented x4.Normal gait and speech. SKIN: Warm, dry, no laceration, no petechiae, no rashes or lesions. Course Orders Ordered: ED Orders 05/09/21 18:38 EKG-12 Lead Stat 05/09/21 19:08 Complete Blood Count AUTO DIFF Stat Comprehensive Metabolic Panel Stat Lipase Stat 05/09/21 19:37 XR abdomen min 2V Stat 05/09/21 19:39 CT abdomen pelvis w con Stat Discontinued Medications Ondansetron HCl (Ondansetron 4 Mg/2 Ml Inj) 4 mg IV NOW ONE Stop: 05/09/21 19:56 Last Admin: 05/09/21 20:33 Dose: 4 mg Documented by: BJ Vital Signs Vital signs: Vital Signs - 8 hr 05/09/21 18:36 05/09/21 21:27 Temperature 97.9 F Pulse Rate 99 H 88 Respiratory Rate 18 15 Blood Pressure 140/98 H 131/94 H Pulse Oximetry 96 96 MDM - Abdominal Pain Lab Data Result diagrams: 05/09/21 19:08 05/09/21 19:08 Labs: Lab Results 05/09/21 05/09/21 Range/Units 19:08 19:08 WBC 6.9 (4.5-11.0) X10^3/uL RBC 5.45 (4.5-5.9) X10^6/uL Hgb 16.7 (13.5-17.5) g/dL Hct 48.4 (41-53) % MCV 88.8 (80-100) fL MCH 30.6 (26-34) PG MCHC 34.5 (30-36) % RDW 14.0 (11.6-14.8) % Plt Count 256 (150-400) X10^3/uL Neut % (Auto) 79.9 H (50-75) % Lymph % (Auto) 12.4 L (25-40) % [place] % (Auto) 6.0 (3-14) % Eos % (Auto) 1.2 L (2-4) % Baso % (Auto) 0.5 (0-2) % Neut # (Auto) 5500 (3689-9729) /uL Lymph # (Auto) 900 L (8938-4305) /uL [place] # (Auto) 400 (0-900) /uL Eos # (Auto) 100 (0-450) /uL Baso # (Auto) 0 (0-100) /uL Sodium 138 (137-145) mmol/L Potassium 4.5 (3.4-5.1) mmol/L Chloride 106 (98-107) mmol/L Carbon Dioxide 24 (22-32) mmol/L BUN 14 (9-20) mg/dL Creatinine 0.84 (0.66-1.25) mg/dL Estimated GFR > 60.0 (>60) mL/min BUN/Creatinine Ratio 16.7 (6-22) Glucose 97 (80-110) mg/dL Calcium 10.3 H (8.4-10.2) mg/dL Total Bilirubin 1.7 H (0.2-1.3) mg/dL AST 43 (17-59) IU/L ALT 29 (<50) IU/L Alkaline Phosphatase 50 (38-126) U/L Total Protein 8.1 (6.3-8.2) g/dL Albumin 4.9 (3.5-5.0) g/dL Globulin 3.2 (1.7-4.1) g/dL Albumin/Globulin Ratio 1.5 (1.0-2.8) Lipase 86 (23-300) U/L Imaging Data Abdominal x-ray: Radiologist's Impression: PROCEDURE:? XR ABDOMEN MIN 2V ? INDICATIONS:? pain ? TECHNIQUE:? 2 views of the abdomen were acquired.? ? COMPARISON:? [facility], , XR ABDOMEN MIN 2V, 11/29/2020, 20:52. ? FINDINGS:? Surgical changes and devices:? None. ? Bowel:? No pneumoperitoneum.? The bowel gas pattern appears within normal limits. ? Soft tissues:? No suspicious abdominal calcifications.? ? Bones:? Extensive postsurgical changes are redemonstrated status post posterior fixation of the thoracic and lumbar spine with bilateral fixation screws in the pelvis. ? IMPRESSION:? ? 1. Bowel gas pattern within normal limits. ? ? Dictated by: Fredo Cohen M.D. on 05/09/2021 at 20:23 ? ? CT scan - abdomen/pelvis: Radiologist's Impression: PROCEDURE:? CT ABDOMEN PELVIS W CON ? INDICATIONS:? LLQ pain ? TECHNIQUE:? After the administration of oral and IV contrast, axial sections were acquired from the lung bases to the pubic symphysis.? Coronal and sagittal reformats were performed.? For radiation dose reduction, the following was used:? automated exposure control, adjustment of mA and/or kV according to patient size. ? COMPARISON:? [facility], CT, CT ABDOMEN PELVIS W CON, 04/16/2021, 21:05. ? FINDINGS:? Image quality:? There is metallic streak artifact from patient's surgical hardware.? Mild motion artifact also present.? ? Lung bases:? There is mild dependent atelectasis. Heart:? Heart is normal in size. ? ? ABDOMEN: Liver:? No mass lesion. Gallbladder:? Within normal limits without gallstones.? ? Biliary ducts:? No biliary ductal dilatation.? ? Pancreas:? There is moderate atrophy of the pancreas.? No discrete mass or pancreatic duct dilatation identified. ? Spleen:? Normal in size.? ? Adrenal Glands:? No adrenal nodules.? ? Kidneys and Ureters:? No hydronephrosis.? ? ? Stomach and Bowel:? Stomach and small bowel loops are normal in caliber and wall thickness.? No evidence of appendicitis.? There is colonic diverticulosis without acute diverticulitis.? There is mild segmental wall thickening in the descending and proximal sigmoid colon suggestive of a mild colitis versus artifact from nondistention. Peritoneum:? No abnormal intraperitoneal fluid.? No free air.? ? Ventral Wall: ? No hernia.? Abdominal Nodes:? No retroperitoneal or mesenteric adenopathy by size criteria.? Vessels:? Aorta and inferior vena cava are normal in size.? ? PELVIS: Pelvic Organs:? Unremarkable.? ? Bladder:? The urinary bladder is partially distended with mild perisigmoid fat stranding. Pelvic Nodes: No enlarged lymph nodes.? Miscellaneous: No inguinal hernias are seen. ? ? ? Bones:? Visualized osseous structures demonstrate no suspicious focal lesions. ? ? IMPRESSION:? ? 1.? Colonic diverticulosis without acute diverticulitis.? ? 2. Suspected mild segmental wall thickening within the descending and sigmoid colon with evaluation limited by nondistention.? The findings are suggestive of a mild colitis. ? 3. Mild perivesicular fat stranding suggestive of a cystitis.? Recommend correlation with urinalysis.? ? Dictated by: Fredo Cohen M.D. on 05/09/2021 at 20:53 ? ECG Data Interpretation: Normal sinus rhythm rate 77 DE interval 158 QRS [address] changes or T-wave inversions [facility] Narrative Medical decision making narrative: Patient is found to have a reducible chronic ongoing ventral hernia not significantly tender over that area but he is tender in his left lower quadrant. CT does not show any evidence of diverticulitis but does have some mild colitis. He has no fever or leukocytosis. He is having some diarrhea but did not have any diarrhea in the emergency department. At this time no antibiotics indicated recommend outpatient follow-up. He states that he also has a prior history of C diff which more indication to hold off on antibiotics at this time. Discharge Plan Departure Patient Disposition: Home Clinical Impression: Colitis Activity Restrictions/Additional Instructions: *You have been diagnosed with colitis *What to do: increase fluid intake, no need for antibiotics at this time. Please follow-up with your GI and primary doctor *Continue to take medications as directed *Follow up with your primary care provider in 2-3 days or call [phone] *Return to ER if you should have in decreasing abdominal pain fever, or any new, worsening or concerning symptoms Prescriptions: No Action metronidazole 500 mg tablet 500 mg PO TID 0RF acetaminophen-codeine 300-30 mg tablet 1 tab PO Q4-6H PRN (Reason: pain) 0RF amlodipine 5 mg tablet 5 mg PO DAILY 0RF ciprofloxacin HCl 500 mg tablet 500 mg PO BID 0RF vancomycin 125 mg capsule 125 mg PO QID 0RF ondansetron 4 mg tablet,disintegrating 4 mg PO Q4-6H PRN (Reason: Nausea) 0RF atenolol 50 mg tablet 100 mg PO DAILY 0RF amoxicillin-pot clavulanate 875-125 mg tablet 1 tab PO BID 0RF ondansetron 4 mg tablet,disintegrating 4 mg PO Q8H Qty: 10 0RF ondansetron 4 mg tablet,disintegrating 4 mg PO Q6H PRN (Reason: nausea and vomiting) Qty: 14 0RF amlodipine 5 mg tablet 5 mg PO DAILY Qty: 20 0RF metoclopramide HCl [Reglan] 10 mg tablet 10 mg PO Q6H PRN (Reason: nausea and vomiting) Qty: 20 0RF Referrals: Ирина Weaver MD [Primary Care Provider] -
[2021-05-09 19:32] LABS: Alanine Aminotransferase 29 IU/L (<50); Albumin 4.9 g/dL (3.5-5.0); Albumin Globulin Ratio 1.5 (1.0-2.8); Alkaline Phosphatase 50 U/L (38-126); Aspartate Aminotransferase 43 IU/L (17-59); BUN Creatinine Ratio 16.7 (6-22); Bilirubin Total 1.7 mg/dL (0.2-1.3); Blood Urea Nitrogen 14 mg/dL (9-20); Calcium 10.3 mg/dL (8.4-10.2); Carbon Dioxide 24 mmol/L (22-32); Chloride 106 mmol/L (98-107); Estimated Glomerular Filt Rate > 60.0 mL/min (>60); Globulin 3.2 g/dL (1.7-4.1); Glucose 97 mg/dL (80-110); Lipase 86 U/L (23-300); Sodium 138 mmol/L (137-145); Total Protein 8.1 g/dL (6.3-8.2)
--- NOTE | 2021-05-09 19:37 | DI.RAD.S_ITS ---
PROCEDURE: XR ABDOMEN MIN 2V INDICATIONS: pain TECHNIQUE: 2 views of the abdomen were acquired. COMPARISON: [facility], , XR ABDOMEN MIN 2V, 11/29/2020, 20:52. FINDINGS: Surgical changes and devices: None. Bowel: No pneumoperitoneum. The bowel gas pattern appears within normal limits. Soft tissues: No suspicious abdominal calcifications. Bones: Extensive postsurgical changes are redemonstrated status post posterior fixation of the thoracic and lumbar spine with bilateral fixation screws in the pelvis. IMPRESSION: 1. Bowel gas pattern within normal limits. Dictated by: Fredo Cohen M.D. on 05/09/2021 at 20:23 Approved by: Fredo Cohen M.D. on 05/09/2021 at 20:25
--- NOTE | 2021-05-09 19:39 | DI.CT.S_ITS ---
PROCEDURE: CT ABDOMEN PELVIS W CON INDICATIONS: LLQ pain TECHNIQUE: After the administration of oral and IV contrast, axial sections were acquired from the lung bases to the pubic symphysis. Coronal and sagittal reformats were performed. For radiation dose reduction, the following was used: automated exposure control, adjustment of mA and/or kV according to patient size. COMPARISON: [facility], CT, CT ABDOMEN PELVIS W CON, 04/16/2021, 21:05. FINDINGS: Image quality: There is metallic streak artifact from patient's surgical hardware. Mild motion artifact also present. Lung bases: There is mild dependent atelectasis. Heart: Heart is normal in size. ABDOMEN: Liver: No mass lesion. Gallbladder: Within normal limits without gallstones. Biliary ducts: No biliary ductal dilatation. Pancreas: There is moderate atrophy of the pancreas. No discrete mass or pancreatic duct dilatation identified. Spleen: Normal in size. Adrenal Glands: No adrenal nodules. Kidneys and Ureters: No hydronephrosis. Stomach and Bowel: Stomach and small bowel loops are normal in caliber and wall thickness. No evidence of appendicitis. There is colonic diverticulosis without acute diverticulitis. There is mild segmental wall thickening in the descending and proximal sigmoid colon suggestive of a mild colitis versus artifact from nondistention. Peritoneum: No abnormal intraperitoneal fluid. No free air. Ventral Wall: No hernia. Abdominal Nodes: No retroperitoneal or mesenteric adenopathy by size criteria. Vessels: Aorta and inferior vena cava are normal in size. PELVIS: Pelvic Organs: Unremarkable. Bladder: The urinary bladder is partially distended with mild perisigmoid fat stranding. Pelvic Nodes: No enlarged lymph nodes. Miscellaneous: No inguinal hernias are seen. Bones: Visualized osseous structures demonstrate no suspicious focal lesions. IMPRESSION: 1. Colonic diverticulosis without acute diverticulitis. 2. Suspected mild segmental wall thickening within the descending and sigmoid colon with evaluation limited by nondistention. The findings are suggestive of a mild colitis. 3. Mild perivesicular fat stranding suggestive of a cystitis. Recommend correlation with urinalysis. Dictated by: Fredo Cohen M.D. on 05/09/2021 at 20:53 Approved by: Fredo Cohen M.D. on 05/09/2021 at 21:03
[2021-05-09 19:46] LABS: HEMOLYSIS 58 (0-50); Potassium 4.5 mmol/L (3.4-5.1)
[2021-05-09] MEDS: ONDANSETRON 4 MG/2 ML INJ IV (20:33)
[2021-05-09 21:27] VITALS: BP 131/94; PULSE 88; RESP 15; O2SAT 96
== END 2021-05-09 21:34 | disposition home or self-care (01) ==
PROVIDERS: Emergency Provider Emergency Medicine; PCP Family Medicine
DX: K52.9 Noninfective gastroenteritis and colitis, unspecified (principal)
CPT/HCPCS: 36415; 74019; 74177; 80053; 83690; 85025; 93005; 96374; 99284; J2405; Q9967

== ENCOUNTER → 2021-08-16 12:17 | Outpatient (CLI) | payer OTHER, MEDICAID, SELFPAY ==
--- NOTE | 2021-08-16 | DI.RAD.S_ITS ---
PROCEDURE: FL BARIUM SWALLOW W AIR COMPARISON: [facility], CR, XR BARIUM SWALLOW, 03/10/2019, 16:03. INDICATIONS: DIFFICULTY SWALLOWING FINDINGS: FUNCTION: There is overall normal esophageal peristalsis; however occasional tertiary waves were appreciated. Morphology: Air-contrast images demonstrate normal mucosal morphology. Single contrast views show no extrinsic mass effects or diverticula. Limited images of the stomach demonstrate a normal appearance. A discrete hiatal hernia was not visualized on the current study; however there was markedly delayed passage of a barium tablet into the stomach. Only after increased ingestion of both water and barium did the tablet pass into the gastric fundus. Impression: 1. 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 Dictated by: Alta Banda M.D. on 08/16/2021 at 14:02 Approved by: Alta Banda M.D. on 08/16/2021 at 14:06
== END ==
PROVIDERS: PCP Family Medicine; Referring Provider Internal Medicine Gastroenterology; Visit Provider Internal Medicine Gastroenterology
DX: R13.10 Dysphagia, unspecified (principal)
CPT/HCPCS: 74221

== ENCOUNTER 2021-08-24 16:24 | Emergency (ER) | payer OTHER, MEDICAID, SELFPAY ==
[2021-08-24] VITALS (8 sets, daily range): BP systolic 117–187; BP diastolic 73–95; PULSE 107–130; RESP 18–28; TEMP 37.4; O2SAT 92–97
[2021-08-24 17:10] LABS: Add Manual Diff / Slide Review NO; Basophils Absolute Auto 0 /uL (0-100); Basophils Percent Auto 0.2 % (0-2); Eosinophils Absolute Auto 0 /uL (0-450); Hematocrit 48.6 % (41-53); Hemoglobin 16.6 g/dL (13.5-17.5); Lymphocytes Absolute Auto 300 /uL (1100-4500); Lymphocytes Percent Auto 1.7 % (25-40); Mean Corpuscular HGB Conc 34.1 % (30-36); Mean Corpuscular Hemoglobin 30.6 PG (26-34); Mean Corpuscular Volume 89.7 fL (80-100); Monocytes Absolute Auto 300 /uL (0-900); Monocytes Percent Auto 1.8 % (3-14); Neutrophils Absolute Auto 15900 /uL (1500-7000); Neutrophils Percent Auto 96.3 % (50-75); Platelet Count 295 X10^3/uL (150-400); Red Blood Cell Count 5.42 X10^6/uL (4.5-5.9); Red Cell Distribution Width 13.7 % (11.6-14.8); White Blood Cell Count 16.5 X10^3/uL (4.5-11.0)
[2021-08-24 17:32] LABS: Alanine Aminotransferase 25 IU/L (<50); Albumin 5.4 g/dL (3.5-5.0); Albumin Globulin Ratio 1.4 (1.0-2.8); Alkaline Phosphatase 74 U/L (38-126); Aspartate Aminotransferase 29 IU/L (17-59); BUN Creatinine Ratio 13.8 (6-22); Bilirubin Total 2.3 mg/dL (0.2-1.3); Blood Urea Nitrogen 12 mg/dL (9-20); Calcium 9.9 mg/dL (8.4-10.2); Carbon Dioxide 15 mmol/L (22-32); Chloride 108 mmol/L (98-107); Estimated Glomerular Filt Rate > 60.0 mL/min (>60); Glucose 182 mg/dL (80-110); HEMOLYSIS < 15 (0-50); Lipase 29 U/L (23-300); Potassium 4.6 mmol/L (3.4-5.1); Sodium 141 mmol/L (137-145); Total Protein 9.4 g/dL (6.3-8.2)
[2021-08-24] MEDS: ONDANSETRON 4 MG/2 ML INJ IV (17:32)
[2021-08-24 17:33] LABS: Lactate (Lactic Acid) 2.9 mmol/L (0.7-2.1)
--- NOTE | 2021-08-24 17:38 | DI.CT.S_ITS ---
PROCEDURE: CT ABDOMEN PELVIS W CON INDICATIONS: Abdominal pain, elevated white blood cell count TECHNIQUE: After the administration of intravenous contrast, axial sections acquired from the lung bases to the pubic symphysis. Coronal and sagittal reformats were performed. For radiation dose reduction, the following was used: automated exposure control, adjustment of mA and/or kV according to patient size. COMPARISON: [facility], CT, CT ABDOMEN PELVIS W CON, 05/09/2021, 19:47. [facility], CT, CT ABDOMEN PELVIS W CON, 04/16/2021, 21:05. FINDINGS: Image quality: Initial images degraded by patient motion. Repeat images of the mid to lower abdomen or acquired. Diagnostic information is obtained. Lung bases: Unremarkable. Heart: No significant findings. ABDOMEN: Liver: Unremarkable. Gallbladder: Unremarkable. Biliary ducts: Unremarkable. Pancreas: Unremarkable. Spleen: Unremarkable. Adrenal Glands: Unremarkable. Kidneys and Ureters: Simple appearing cysts are seen in the kidneys. No hydronephrosis. Stomach and Bowel: Multiple diverticula are seen in the colon without definite signs of acute diverticulitis. Peritoneum: No abnormal intraperitoneal fluid. No free air. Ventral Wall: No hernias. Abdominal Nodes: No retroperitoneal or mesenteric adenopathy by size criteria. Vessels: Aorta and inferior vena cava are normal in size. PELVIS: Pelvic Organs: Surgical clips are seen in the left pelvis. Bladder: Bladder is mildly distended. Pelvic Nodes: No enlarged lymph nodes. Miscellaneous: Small fat containing right inguinal hernia. Bones: Extensive postsurgical changes are seen in the spine from posterior fixation extending from the sacrum through the visualized thoracic spine. There is associated metallic streak artifact that obscures adjacent structures. IMPRESSION: 1. No acute abnormality identified in the abdomen or pelvis. 2. Colonic diverticulosis without signs of acute diverticulitis. Dictated by: Brant Ruiz M.D. on 08/24/2021 at 18:23 Approved by: Brant Ruiz M.D. on 08/24/2021 at 18:30
--- NOTE | 2021-08-24 17:58 | ED.ABDPAIN ---
HPI - Abdominal Pain <Renato Campbell PA-C - Last Filed: 08/24/21 20:44> General Chief Complaint: Abdominal Pain Stated Complaint: abd pain, diarrhea Time Seen by Provider: 08/24/21 16:56 Source: patient and family Mode of arrival: Ambulatory History of Present Illness HPI narrative: The patient is a 61-year-old male with a history of diverticulosis, ventral abdominal hernia, and Schatzki's ring presenting to the emergency department today for evaluation abdominal pain, vomiting, and diarrhea. Patient explains that he has experienced vomiting and the diarrhea since this past weekend, stating that it may have resulted from 1 of the restaurants he was eating at. He also notes that he has experienced increasing abdominal pain over the past couple of days, noting it is worse on the left lower quadrant of his abdomen. 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 Of note, patient states that is been over 1 year since he had a colonoscopy. He denies fever, chills, chest pain, shortness of breath, dysuria, hematuria, hematochezia, hematemesis, or any other concerning symptoms. No further concerns were voiced at this time. Related Data Home Medications Medication Instructions Recorded Confirmed acetaminophen 300 mg-codeine 30 mg 1 tab PO Q4-6H PRN 03/12/19 tablet amlodipine 5 mg tablet 5 mg PO DAILY 03/12/19 03/12/19 amoxicillin 875 mg-potassium 1 tab PO BID 03/12/19 03/12/19 clavulanate 125 mg tablet atenolol 50 mg tablet 100 mg PO DAILY 03/12/19 03/12/19 ciprofloxacin HCl 500 mg tablet 500 mg PO BID 03/12/19 03/12/19 metronidazole 500 mg tablet 500 mg PO TID 03/12/19 03/12/19 ondansetron 4 mg disintegrating 4 mg PO Q4-6H PRN 03/12/19 03/12/19 tablet vancomycin 125 mg capsule 125 mg PO QID 03/12/19 03/12/19 Previous Rx's Medication Instructions Recorded ondansetron 4 mg disintegrating 4 mg PO Q8H #10 tab 03/18/20 tablet ondansetron 4 mg disintegrating 4 mg PO Q6H PRN #14 tab 01/06/21 tablet amlodipine 5 mg tablet 5 mg PO DAILY #20 tab 11/29/20 metoclopramide HCl 10 mg tablet 10 mg PO Q6H PRN #20 tab 04/16/21 (Reglan) levofloxacin 750 mg tablet 750 mg PO DAILY #7 tab 08/24/21 Allergies Allergy/AdvReac Type Severity Reaction Status Date / Time amoxicillin [From Augmentin] Allergy Severe Confusion Verified 08/24/21 16:45 barium iodide Allergy Severe Gastrointestinal Verified 08/24/21 16:45 Upset clavulanic acid Allergy Severe Confusion Verified 08/24/21 16:45 [From Augmentin] methadone Allergy Severe Blurry Verified 08/24/21 16:45 Vision Sulfa (Sulfonamide Allergy Severe Rash Verified 08/24/21 16:45 Antibiotics) unknown antibiotic Allergy Uncoded 08/24/21 16:45 Review of Systems <Renato Campbell PA-C - Last Filed: 08/24/21 20:44> Constitutional Constitutional: Denies chills, Denies fatigue, Denies fever(s), Denies frequent falls, Denies lethargy and Denies weakness Eyes Eyes: Denies loss of vision ENT Ears, Nose, Mouth, and Throat: Denies dizziness and Denies neck pain Cardiovascular Cardiovascular: Denies chest pain, Denies irregular heart rhythm, Denies lightheadedness, Denies palpitations, Denies dyspnea, Denies dyspnea on exertion and Denies orthopnea Respiratory Respiratory: Denies cough, Denies dyspnea, Denies dyspnea on exertion and Denies wheezing Gastrointestinal Gastrointestinal: Reports abdominal pain, Denies change in bowel habits, Reports diarrhea, Reports nausea and Reports vomiting Genitourinary Genitourinary: Denies hematuria, Denies flank pain, Denies urinary incontinence and Denies urinary urgency Musculoskeletal Musculoskeletal: Denies back pain, Denies muscle weakness, Denies neck pain, Denies numbness and Denies tingling Integumentary/Breasts Skin/Breast: Denies pruritus, Denies erythema, Denies rash and Denies wounds Neurologic Neurologic: Denies behavioral changes, Denies confusion, Denies dizziness, Denies frequent falls, Denies loss of vision, Denies numbness, Denies tingling and Denies weakness Psychiatric Psychiatric: Denies behavioral changes and Denies confusion Endocrine Endocrine: Denies fatigue and Denies palpitations Allergic/Immunologic Allergic/Immunologic: Denies wheezing Patient History <Renato Campbell PA-C - Last Filed: 08/24/21 20:44> Medical History (Updated 08/24/21 @ 20:24 by Renato Campbell PA-C) Clostridium difficile infection Social History Smoking Status: Never smoker Smoking Status: Never smoker alcohol intake frequency: 0-2 drinks per day Substance Use Type: marijuana Exam <Renato Campbell PA-C - Last Filed: 08/24/21 20:44> Narrative Exam Narrative: GENERAL: 61 year old patient appears stated age. Well-developed patient, in no acute distress. HEAD: Atraumatic. Normocephalic. EYES: Pupils equal round and reactive. Extraocular motions intact. No scleral icterus. No injection or drainage. ENT: Nose without bleeding, purulent drainage. Throat without erythema, tonsillar hypertrophy or exudate. Airway patent. NECK: Trachea midline. Non tender CARDIOVASCULAR: Regular rate and rhythm without murmurs, gallops, or rubs. RESPIRATORY: Clear to auscultation. Breath sounds equal bilaterally. No wheezes, rales, or rhonchi. GASTROINTESTINAL: Abdomen soft, nondistended. Generalized tenderness to palpation throughout the abdomen, most significant in the left lower quadrant. Ventral hernia appreciated when performing psoas sign, psoas sign negative. Negative obturator's sign. Negative Zendejas sign. Bowel sounds normal throughout all quadrants of the abdomen. EXTREMITIES: No edema or joint tenderness. BACK: Nontender without deformity or crepitance. No flank tenderness. NEURO: AOx3. SKIN: No rash or erythema of visible areas Initial Vital Signs Initial Vital Signs: Vital Signs Temperature 99.3 F 08/24/21 16:39 Pulse Rate 130 H 08/24/21 16:39 Respiratory Rate 18 08/24/21 16:39 Blood Pressure 187/95 H 08/24/21 16:39 Pulse Oximetry 97 08/24/21 16:39 <Kyara Villalobos DO - Last Filed: 08/25/21 07:12> Initial Vital Signs Initial Vital Signs: Vital Signs Temperature 99.3 F 08/24/21 16:39 Pulse Rate 130 H 08/24/21 16:39 Respiratory Rate 18 08/24/21 16:39 Blood Pressure 187/95 H 08/24/21 16:39 Pulse Oximetry 97 08/24/21 16:39 Course <Renato Campbell PA-C - Last Filed: 08/24/21 20:44> Course Course Narrative: CBC, CMP, lipase, lactic acid, CT of the abdomen and pelvis with IV contrast ordered. 1000 mL normal saline bolus and 4 mg of Zofran administered. Orders Ordered: Discontinued Medications Sodium Chloride (Normal Saline 0.9%) 1,000 mls @ 1,000 mls/hr IV BOLUS ONE Stop: 08/24/21 17:45 Last Infusion: 08/24/21 20:30 Dose: 0 mls/hr Documented by: Admin: 08/24/21 18:00 Dose: 500 mls/hr Documented by: LUIZA Ondansetron HCl (Ondansetron 4 Mg/2 Ml Inj) 4 mg IV NOW ONE Stop: 08/24/21 16:47 Last Admin: 08/24/21 17:32 Dose: 4 mg Documented by: LUIZA Vital Signs Vital signs: Vital Signs - 8 hr 08/24/21 16:39 08/24/21 17:25 08/24/21 17:27 Temperature 99.3 F Pulse Rate 130 H 127 H 125 H Respiratory Rate 18 28 H Blood Pressure 187/95 H 133/77 Pulse Oximetry 97 95 96 08/24/21 17:30 08/24/21 18:00 08/24/21 18:30 Temperature Pulse Rate 124 H 115 H 118 H Respiratory Rate 28 H 22 22 Blood Pressure 122/73 117/74 Pulse Oximetry 96 92 94 08/24/21 18:41 08/24/21 19:00 Temperature Pulse Rate 116 H 107 H Respiratory Rate 23 26 H Blood Pressure 121/79 134/85 Pulse Oximetry 94 96 <Kyara Villalobos DO - Last Filed: 08/25/21 07:12> Orders Ordered: Discontinued Medications Sodium Chloride (Normal Saline 0.9%) 1,000 mls @ 1,000 mls/hr IV BOLUS ONE Stop: 08/24/21 17:45 Last Infusion: 08/24/21 20:30 Dose: 0 mls/hr Documented by: Admin: 08/24/21 18:00 Dose: 500 mls/hr Documented by: KBRYERS Ondansetron HCl (Ondansetron 4 Mg/2 Ml Inj) 4 mg IV NOW ONE Stop: 08/24/21 16:47 Last Admin: 08/24/21 17:32 Dose: 4 mg Documented by: LUIZA Vital Signs Vital signs: Vital Signs - 8 hr 08/24/21 16:39 08/24/21 17:25 08/24/21 17:27 Temperature 99.3 F Pulse Rate 130 H 127 H 125 H Respiratory Rate 18 28 H Blood Pressure 187/95 H 133/77 Pulse Oximetry 97 95 96 08/24/21 17:30 08/24/21 18:00 08/24/21 18:30 Temperature Pulse Rate 124 H 115 H 118 H Respiratory Rate 28 H 22 22 Blood Pressure 122/73 117/74 Pulse Oximetry 96 92 94 08/24/21 18:41 08/24/21 19:00 Temperature Pulse Rate 116 H 107 H Respiratory Rate 23 26 H Blood Pressure 121/79 134/85 Pulse Oximetry 94 96 MDM - Abdominal Pain <Renato Campbell PA-C - Last Filed: 08/24/21 20:44> Lab Data Result diagrams: 08/24/21 17:04 08/24/21 17:04 Labs: Lab Results 08/24/21 08/24/21 08/24/21 Range/Units 17:04 17:04 17:04 WBC 16.5 H (4.5-11.0) X10^3/uL RBC 5.42 (4.5-5.9) X10^6/uL Hgb 16.6 (13.5-17.5) g/dL Hct 48.6 (41-53) % MCV 89.7 (80-100) fL MCH 30.6 (26-34) PG MCHC 34.1 (30-36) % RDW 13.7 (11.6-14.8) % Plt Count 295 (150-400) X10^3/uL Neut % (Auto) 96.3 H (50-75) % Lymph % (Auto) 1.7 L (25-40) % [place] % (Auto) 1.8 L (3-14) % Eos % (Auto) 0.0 L (2-4) % Baso % (Auto) 0.2 (0-2) % Neut # (Auto) 22585 H (3329-2959) /uL Lymph # (Auto) 300 L (6479-3089) /uL [place] # (Auto) 300 (0-900) /uL Eos # (Auto) 0 (0-450) /uL Baso # (Auto) 0 (0-100) /uL Sodium 141 (137-145) mmol/L Potassium 4.6 (3.4-5.1) mmol/L Chloride 108 H (98-107) mmol/L Carbon Dioxide 15 L (22-32) mmol/L BUN 12 (9-20) mg/dL Creatinine 0.87 (0.66-1.25) mg/dL Estimated GFR > 60.0 (>60) mL/min BUN/Creatinine Ratio 13.8 (6-22) Glucose 182 H (80-110) mg/dL Lactate 2.9 H (0.7-2.1) mmol/L Calcium 9.9 (8.4-10.2) mg/dL Total Bilirubin 2.3 H (0.2-1.3) mg/dL AST 29 (17-59) IU/L ALT 25 (<50) IU/L Alkaline Phosphatase 74 (38-126) U/L Total Protein 9.4 H (6.3-8.2) g/dL Albumin 5.4 H (3.5-5.0) g/dL Globulin 4.0 (1.7-4.1) g/dL Albumin/Globulin Ratio 1.4 (1.0-2.8) Lipase 29 (23-300) U/L Procalcitonin (<0.5) ng/mL Urine Color Urine Appearance Urine pH (4.5-8.0) Ur Specific [place] (1.000-1.035) Urine Protein (Negative) Urine Glucose (UA) (Negative) g/dL Urine Ketones (NEGATIVE) Urine Occult Blood (Negative) Urine Nitrate (Negative) Urine Bilirubin (NEGATIVE) Urine Urobilinogen (0.2) E.U./dL Ur Leukocyte Esterase (NEGATIVE) Urine RBC (0-5/HPF) Urine WBC (0-5/HPF) Ur Squamous Epith Cells (0-5/HPF) Amorphous Sediment Urine Bacteria (None) Urine Mucus (Negative) Ur Culture Indicated? 04/07/22 04/07/22 04/07/22 Range/Units 17:04 19:30 19:40 WBC (4.5-11.0) X10^3/uL RBC (4.5-5.9) X10^6/uL Hgb (13.5-17.5) g/dL Hct (41-53) % MCV (80-100) fL MCH (26-34) PG MCHC (30-36) % RDW (11.6-14.8) % Plt Count (150-400) X10^3/uL Neut % (Auto) (50-75) % Lymph % (Auto) (25-40) % [place] % (Auto) (3-14) % Eos % (Auto) (2-4) % Baso % (Auto) (0-2) % Neut # (Auto) (6271-2423) /uL Lymph # (Auto) (3279-4455) /uL [place] # (Auto) (0-900) /uL Eos # (Auto) (0-450) /uL Baso # (Auto) (0-100) /uL Sodium (137-145) mmol/L Potassium (3.4-5.1) mmol/L Chloride (98-107) mmol/L Carbon Dioxide (22-32) mmol/L BUN (9-20) mg/dL Creatinine (0.66-1.25) mg/dL Estimated GFR (>60) mL/min BUN/Creatinine Ratio (6-22) Glucose (80-110) mg/dL Lactate 2.6 H (0.7-2.1) mmol/L Calcium (8.4-10.2) mg/dL Total Bilirubin (0.2-1.3) mg/dL AST (17-59) IU/L ALT (<50) IU/L Alkaline Phosphatase (38-126) U/L Total Protein (6.3-8.2) g/dL Albumin (3.5-5.0) g/dL Globulin (1.7-4.1) g/dL Albumin/Globulin Ratio (1.0-2.8) Lipase (23-300) U/L Procalcitonin 0.07 (<0.5) ng/mL Urine Color Yellow Urine Appearance Clear Urine pH 5.0 (4.5-8.0) Ur Specific [place] >=1.030 H (1.000-1.035) Urine Protein 2+ H (Negative) Urine Glucose (UA) Negative (Negative) g/dL Urine Ketones 2+ H (NEGATIVE) Urine Occult Blood 1+ H (Negative) Urine Nitrate Negative (Negative) Urine Bilirubin Negative (NEGATIVE) Urine Urobilinogen 0.2 (0.2) E.U./dL Ur Leukocyte Esterase Trace H (NEGATIVE) Urine RBC 0-1/hpf (0-5/HPF) Urine WBC 5-10/hpf H (0-5/HPF) Ur Squamous Epith Cells 0-1 /hpf (0-5/HPF) Amorphous Sediment 1+ Urine Bacteria Moderate (10-30) H (None) Urine Mucus 2+ H (Negative) Ur Culture Indicated? Specimen cultured Point of care testing: Urine Dip Bedside Urine Glucose Negative Bedside Urine Bilirubin - Negative Bedside Urine Ketone +/- 5 Urine Specific [place] 1.03 Bedside Urine Occult Blood +/- Bedside Urine pH 6 Bedside Urine Protein +/- 15 Bedside Urine Urobilinogen - Negative Bedside Urine Nitrite - Negative Bedside Urine Leukocytes - Negative Esterase Imaging Data CT scan - abdomen/pelvis: Radiologist's Impression: PROCEDURE:? CT ABDOMEN PELVIS W CON ? INDICATIONS:? Abdominal pain, elevated white blood cell count ? TECHNIQUE:? After the administration of intravenous contrast, axial sections acquired from the lung bases to the pubic symphysis.? Coronal and sagittal reformats were performed.? For radiation dose reduction, the following was used:? automated exposure control, adjustment of mA and/or kV according to patient size.? ? COMPARISON:? [facility], CT, CT ABDOMEN PELVIS W CON, 05/09/2021, 19:47.? [facility], CT, CT ABDOMEN PELVIS W CON, 04/16/2021, 21:05. ? FINDINGS:? Image quality:? Initial images degraded by patient motion.? Repeat images of the mid to lower abdomen or acquired.? Diagnostic information is obtained.? ? Lung bases:? Unremarkable. Heart:? No significant findings. ? ABDOMEN: Liver:? Unremarkable.? ? Gallbladder:? Unremarkable. Biliary ducts:? Unremarkable.? ? Pancreas:? Unremarkable.? ? Spleen:? Unremarkable.? ? Adrenal Glands:? Unremarkable.? ? Kidneys and Ureters:? Simple appearing cysts are seen in the kidneys.? No hydronephrosis. ? Stomach and Bowel:? Multiple diverticula are seen in the colon without definite signs of acute diverticulitis. Peritoneum:? No abnormal intraperitoneal fluid.? No free air.? ? Ventral Wall: ? No hernias.? Abdominal Nodes:? No retroperitoneal or mesenteric adenopathy by size criteria.? Vessels:? Aorta and inferior vena cava are normal in size.? ? PELVIS: Pelvic Organs:? Surgical clips are seen in the left pelvis.? Bladder:? Bladder is mildly distended.? ? Pelvic Nodes: No enlarged lymph nodes.? Miscellaneous:? Small fat containing right inguinal hernia. ? Bones:? Extensive postsurgical changes are seen in the spine from posterior fixation extending from the sacrum through the visualized thoracic spine.? There is associated metallic streak artifact that obscures adjacent structures. ? ? IMPRESSION:? 1. No acute abnormality identified in the abdomen or pelvis. 2. Colonic diverticulosis without signs of acute diverticulitis. ? ? Dictated by: Brant Ruiz M.D. on 08/24/2021 at 18:23 ? ? Approved by: Brant Ruiz M.D. on 08/24/2021 at 18:30 ? MDM Narrative Medical decision making narrative: Differential diagnosis to consider but not limited to diverticulosis versus diverticulitis versus appendicitis versus cholelithiasis versus choledocholithiasis versus acute cholangitis versus cholecystitis. I discussed results of lab studies with patient and informed him that it does look like he may be experiencing a urinary tract infection. Patient explains he does self-catheterize in I explained that this increases your risk of urinary tract infections. I discussed planned to have the patient started on levofloxacin to treat his infection and patient agreed to plan. I urged the patient to return to the emergency department if he experiences worsening symptoms and patient states he will come back if he feels his condition is deteriorating. Strict return precautions were discussed with the patient prior to discharge. <Kyara Villalobos, DO - Last Filed: 08/25/21 07:12> Lab Data Labs: Lab Results 08/24/21 08/24/21 08/24/21 Range/Units 17:04 17:04 17:04 WBC 16.5 H (4.5-11.0) X10^3/uL RBC 5.42 (4.5-5.9) X10^6/uL Hgb 16.6 (13.5-17.5) g/dL Hct 48.6 (41-53) % MCV 89.7 (80-100) fL MCH 30.6 (26-34) PG MCHC 34.1 (30-36) % RDW 13.7 (11.6-14.8) % Plt Count 295 (150-400) X10^3/uL Neut % (Auto) 96.3 H (50-75) % Lymph % (Auto) 1.7 L (25-40) % [place] % (Auto) 1.8 L (3-14) % Eos % (Auto) 0.0 L (2-4) % Baso % (Auto) 0.2 (0-2) % Neut # (Auto) 62066 H (9901-9731) /uL Lymph # (Auto) 300 L (5372-1019) /uL [place] # (Auto) 300 (0-900) /uL Eos # (Auto) 0 (0-450) /uL Baso # (Auto) 0 (0-100) /uL Sodium 141 (137-145) mmol/L Potassium 4.6 (3.4-5.1) mmol/L Chloride 108 H (98-107) mmol/L Carbon Dioxide 15 L (22-32) mmol/L BUN 12 (9-20) mg/dL Creatinine 0.87 (0.66-1.25) mg/dL Estimated GFR > 60.0 (>60) mL/min BUN/Creatinine Ratio 13.8 (6-22) Glucose 182 H (80-110) mg/dL Lactate 2.9 H (0.7-2.1) mmol/L Calcium 9.9 (8.4-10.2) mg/dL Total Bilirubin 2.3 H (0.2-1.3) mg/dL AST 29 (17-59) IU/L ALT 25 (<50) IU/L Alkaline Phosphatase 74 (38-126) U/L Total Protein 9.4 H (6.3-8.2) g/dL Albumin 5.4 H (3.5-5.0) g/dL Globulin 4.0 (1.7-4.1) g/dL Albumin/Globulin Ratio 1.4 (1.0-2.8) Lipase 29 (23-300) U/L Procalcitonin (<0.5) ng/mL Urine Color Urine Appearance Urine pH (4.5-8.0) Ur Specific [place] (1.000-1.035) Urine Protein (Negative) Urine Glucose (UA) (Negative) g/dL Urine Ketones (NEGATIVE) Urine Occult Blood (Negative) Urine Nitrate (Negative) Urine Bilirubin (NEGATIVE) Urine Urobilinogen (0.2) E.U./dL Ur Leukocyte Esterase (NEGATIVE) Urine RBC (0-5/HPF) Urine WBC (0-5/HPF) Ur Squamous Epith Cells (0-5/HPF) Amorphous Sediment Urine Bacteria (None) Urine Mucus (Negative) Ur Culture Indicated? 08/24/21 08/24/21 08/24/21 Range/Units 17:04 19:30 19:40 WBC (4.5-11.0) X10^3/uL RBC (4.5-5.9) X10^6/uL Hgb (13.5-17.5) g/dL Hct (41-53) % MCV (80-100) fL MCH (26-34) PG MCHC (30-36) % RDW (11.6-14.8) % Plt Count (150-400) X10^3/uL Neut % (Auto) (50-75) % Lymph % (Auto) (25-40) % [place] % (Auto) (3-14) % Eos % (Auto) (2-4) % Baso % (Auto) (0-2) % Neut # (Auto) (7753-0986) /uL Lymph # (Auto) (5262-1885) /uL [place] # (Auto) (0-900) /uL Eos # (Auto) (0-450) /uL Baso # (Auto) (0-100) /uL Sodium (137-145) mmol/L Potassium (3.4-5.1) mmol/L Chloride (98-107) mmol/L Carbon Dioxide (22-32) mmol/L BUN (9-20) mg/dL Creatinine (0.66-1.25) mg/dL Estimated GFR (>60) mL/min BUN/Creatinine Ratio (6-22) Glucose (80-110) mg/dL Lactate 2.6 H (0.7-2.1) mmol/L Calcium (8.4-10.2) mg/dL Total Bilirubin (0.2-1.3) mg/dL AST (17-59) IU/L ALT (<50) IU/L Alkaline Phosphatase (38-126) U/L Total Protein (6.3-8.2) g/dL Albumin (3.5-5.0) g/dL Globulin (1.7-4.1) g/dL Albumin/Globulin Ratio (1.0-2.8) Lipase (23-300) U/L Procalcitonin 0.07 (<0.5) ng/mL Urine Color Yellow Urine Appearance Clear Urine pH 5.0 (4.5-8.0) Ur Specific [place] >=1.030 H (1.000-1.035) Urine Protein 2+ H (Negative) Urine Glucose (UA) Negative (Negative) g/dL Urine Ketones 2+ H (NEGATIVE) Urine Occult Blood 1+ H (Negative) Urine Nitrate Negative (Negative) Urine Bilirubin Negative (NEGATIVE) Urine Urobilinogen 0.2 (0.2) E.U./dL Ur Leukocyte Esterase Trace H (NEGATIVE) Urine RBC 0-1/hpf (0-5/HPF) Urine WBC 5-10/hpf H (0-5/HPF) Ur Squamous Epith Cells 0-1 /hpf (0-5/HPF) Amorphous Sediment 1+ Urine Bacteria Moderate (10-30) H (None) Urine Mucus 2+ H (Negative) Ur Culture Indicated? Specimen cultured Point of care testing: Urine Dip Bedside Urine Glucose Negative Bedside Urine Bilirubin - Negative Bedside Urine Ketone +/- 5 Urine Specific [place] 1.03 Bedside Urine Occult Blood +/- Bedside Urine pH 6 Bedside Urine Protein +/- 15 Bedside Urine Urobilinogen - Negative Bedside Urine Nitrite - Negative Bedside Urine Leukocytes - Negative Esterase Discharge Plan Departure Patient Disposition: Home Clinical Impression: Urinary tract infection, Abdominal pain Instructions: DI for Urinary Tract Infection (UTI) Activity Restrictions/Additional Instructions: *You have been diagnosed with urinary tract infection, abdominal pain *What to do: *Please continue to take your regular medications as directed. [X] New medication prescriptions sent to your pharmacy: [facility] - Levofloxacin [ ] New medication written as a paper prescription [ ] No new medications given You were evaluated in the emergency department today for abdominal pain. CT imaging of the abdomen did not show signs of acute abnormality, however lab studies did indicate he may be experiencing a urinary tract infection. I prescribed you a course of antibiotics (levofloxacin) and sent them to your preferred pharmacy. Please take this medication as directed and complete the entire course of antibiotics. I recommend following up the primary care provider within the next 2-3 days for further evaluation. Do not hesitate to return to the emergency department if you experience fever, worsening pain, blood in your urine, or any other concerning symptoms. *Please follow up with your primary care provider in 2-3 days, call for an appointment. Let them know you were seen in the Emergency Department and that we ask that you be seen in follow up. We will electronically transmit a record of today's note if your PCP is in our system *If you do not have a primary care provider please contact the [facility] Resource line at [phone]. They will ask some questions about your medical history and help get you set up with a doctor in the community. *Return to Emergency Department if you should have any new, worsening or concerning symptoms, such as fever greater than 101 F, shaking chills, worsening pain, persistent vomiting or other bothersome symptoms. Prescriptions: New levofloxacin 750 mg tablet 750 mg PO DAILY Qty: 7 0RF No Action metronidazole 500 mg tablet 500 mg PO TID 0RF acetaminophen-codeine 300-30 mg tablet 1 tab PO Q4-6H PRN (Reason: pain) 0RF amlodipine 5 mg tablet 5 mg PO DAILY 0RF ciprofloxacin HCl 500 mg tablet 500 mg PO BID 0RF vancomycin 125 mg capsule 125 mg PO QID 0RF ondansetron 4 mg tablet,disintegrating 4 mg PO Q4-6H PRN (Reason: Nausea) 0RF atenolol 50 mg tablet 100 mg PO DAILY 0RF amoxicillin-pot clavulanate 875-125 mg tablet 1 tab PO BID 0RF ondansetron 4 mg tablet,disintegrating 4 mg PO Q8H Qty: 10 0RF ondansetron 4 mg tablet,disintegrating 4 mg PO Q6H PRN (Reason: nausea and vomiting) Qty: 14 0RF amlodipine 5 mg tablet 5 mg PO DAILY Qty: 20 0RF metoclopramide HCl [Reglan] 10 mg tablet 10 mg PO Q6H PRN (Reason: nausea and vomiting) Qty: 20 0RF Referrals: Ирина Weaver MD [Primary Care Provider] - <Kyara Villalobos DO - Last Filed: 08/25/21 07:12> Cosign ED Attending Cosignature Attestation: I was immediately available in the department for consultation. Documentation has been reviewed. I agree with assessment and plan.
[2021-08-24] MEDS: SODIUM CHLORIDE 0.9% 1,000 ML 500 ML IV (18:00)
[2021-08-24 19:09] LABS: Reflexed Lactate in 2 Hours Y
[2021-08-24 19:35] LABS: Procalcitonin 0.07 ng/mL (<0.5)
[2021-08-24 19:52] LABS: Appearance Urine UA CLEAR; Bilirubin Urine UA NEGATIVE (NEGATIVE); Color Urine UA YELLOW; Glucose Urine UA NEGATIVE (Negative); Ketones Urine UA 2+ (NEGATIVE); Leukocyte Esterase Urine UA TRACE (NEGATIVE); Nitrite Urine UA NEGATIVE (Negative); Occult Blood Urine UA 1+ (Negative); Protein Urine UA 2+ (Negative); Specific Gravity Urine UA >=1.030 (1.000-1.035); Urobilinogen Urine UA 0.2 E.U./dL (0.2)
[2021-08-24 20:00] LABS: Lactate 2HR (Lactic Acid Rflx) 2.6 mmol/L (0.7-2.1)
[2021-08-24 20:06] LABS: Amorphous Sediment Urine 1+; Bacteria Urine Moderate (10-30); Culture Indicated Urine Specimen Cultured; Mucus Urine 2+ (Negative); RBC Urine 0-1/HPF (0-5/HPF); Squamous Epithelial Cell Urine 0-1 /HPF (0-5/HPF); WBC Urine 5-10/HPF (0-5/HPF)
== END 2021-08-24 20:40 | disposition home or self-care (01) ==
PROVIDERS: Emergency Medicine; Emergency Provider Physician Assistant; PCP Family Medicine
DX: N39.0 Urinary tract infection, site not specified (principal); R10.84 Generalized abdominal pain; Z88.1 Allergy status to other antibiotic agents; Z88.0 Allergy status to penicillin; Z88.2 Allergy status to sulfonamides
CPT/HCPCS: 36415; 74177; 80053; 81001; 81003; 83605; 83690; 84145; 85025; 87077; 87086; 87186; 96361; 96374; 99284; J2405

== ENCOUNTER 2021-09-04 17:37 | Emergency (ER) | payer OTHER, MEDICAID, SELFPAY ==
[2021-09-04 17:41] VITALS: BP 166/94; PULSE 110; RESP 22; TEMP 36.8; O2SAT 100
[2021-09-04 18:13] LABS: Add Manual Diff / Slide Review NO; Basophils Absolute Auto 0 /uL (0-100); Basophils Percent Auto 0.2 % (0-2); Eosinophils Absolute Auto 0 /uL (0-450); Hematocrit 48.8 % (41-53); Hemoglobin 16.8 g/dL (13.5-17.5); Lymphocytes Absolute Auto 400 /uL (1100-4500); Mean Corpuscular HGB Conc 34.5 % (30-36); Mean Corpuscular Hemoglobin 30.6 PG (26-34); Mean Corpuscular Volume 88.7 fL (80-100); Monocytes Absolute Auto 200 /uL (0-900); Monocytes Percent Auto 1.7 % (3-14); Neutrophils Absolute Auto 12800 /uL (1500-7000); Neutrophils Percent Auto 95.1 % (50-75); Platelet Count 323 X10^3/uL (150-400); Red Cell Distribution Width 13.4 % (11.6-14.8); White Blood Cell Count 13.5 X10^3/uL (4.5-11.0)
[2021-09-04 18:27] LABS: Albumin 5.3 g/dL (3.5-5.0); Albumin Globulin Ratio 1.4 (1.0-2.8); Alkaline Phosphatase 79 U/L (38-126); Aspartate Aminotransferase 36 IU/L (17-59); BUN Creatinine Ratio 19.3 (6-22); Bilirubin Total 1.4 mg/dL (0.2-1.3); Blood Urea Nitrogen 16 mg/dL (9-20); Calcium 10.2 mg/dL (8.4-10.2); Carbon Dioxide 19 mmol/L (22-32); Chloride 104 mmol/L (98-107); Estimated Glomerular Filt Rate > 60 mL/min (>60); Globulin 3.8 g/dL (1.7-4.1); Glucose 176 mg/dL (80-110); HEMOLYSIS < 15 (0-50); Lipase 32 U/L (23-300); Potassium 4.5 mmol/L (3.4-5.1); Sodium 142 mmol/L (137-145); Total Protein 9.1 g/dL (6.3-8.2)
--- NOTE | 2021-09-04 18:33 | DI.RAD.S_ITS ---
PROCEDURE: XR ACUTE ABDOMEN SERIES INDICATIONS: N/V TECHNIQUE: One view chest and two views of the abdomen were acquired. COMPARISON: [facility], CT, CT ABDOMEN PELVIS W CON, 08/24/2021, 18:06. FINDINGS: Surgical changes and devices: Postsurgical changes are seen from extensive spinal fixation with hardware extending from the upper thoracic spine through the sacrum with bilateral sacroiliac screws. Chest: Lungs are clear. Heart size is normal. No pleural effusions. No pneumoperitoneum. Abdomen: There is a relative paucity of bowel gas in the abdomen and pelvis. No dilated bowel loops are seen. No suspicious calcifications. Visualized solid organ contours appear normal. Bones: No suspicious bony lesions. IMPRESSION: Nonobstructive bowel gas pattern. No pneumoperitoneum. Extensive spinal fusion hardware. Dictated by: Brant Ruiz M.D. on 09/04/2021 at 18:58 Approved by: Brant Ruiz M.D. on 09/04/2021 at 19:00
[2021-09-04 18:35] LABS: Alanine Aminotransferase 35 IU/L (<50)
[2021-09-04 19:31] VITALS: BP 150/95; PULSE 125; RESP 18; O2SAT 97
[2021-09-04 20:10] LABS: Amorphous Sediment Urine 2+; Bacteria Urine None Seen; RBC Urine 0-1/HPF (0-5/HPF); Squamous Epithelial Cell Urine 0-1 /HPF (0-5/HPF); WBC Urine 1-5/HPF (0-5/HPF)
[2021-09-04 20:14] LABS: Mucus Urine 1+ (Negative); Other Crystals Urine 2+
[2021-09-04 20:15] LABS: Culture Indicated Urine Cult Not Indicated
--- NOTE | 2021-09-04 20:36 | ED.ABDPAIN ---
HPI - Abdominal Pain General Chief Complaint: Abdominal Pain Stated Complaint: Nausea/Vomiting/Cough Time Seen by Provider: 09/04/21 18:33 Source: patient Mode of arrival: Ambulatory History of Present Illness HPI narrative: 61-year-old male nonsmoker with history of hypertension chronic abdominal pain and nausea and neurogenic bladder who self caths returns for evaluation of a recurrence of nausea and left lower quadrant abdominal pain. He has had no fever chills. He denies any chest pain or shortness of breath. He denies any loss of control of bowel or bladder and has no new back pain. He has a left lower quadrant pain that he states brought him in when he was evaluated a few days ago. He had advanced imaging in the form the CT that had no significant findings, there was note of a urine infection and he was treated with Levaquin. He states that his symptoms greatly improved while on the Levaquin although it did make him feel a bit abnormal any may have had an episode of sleep walking but after stopping the Levaquin his symptoms seem to have returned. He denies constipation but has had occasional loose stools. He states over the course of the day they have been loose but still formed. His pain is somewhat worse when he moves and improves with rest, he also states he has episodes in which it seems to come and go without any provocation He denies any obvious radiation of his pain. Related Data Home Medications Medication Instructions Recorded Confirmed acetaminophen 300 mg-codeine 30 mg 1 tab PO Q4-6H PRN 03/12/19 tablet amlodipine 5 mg tablet 5 mg PO DAILY 03/12/19 03/12/19 amoxicillin 875 mg-potassium 1 tab PO BID 03/12/19 03/12/19 clavulanate 125 mg tablet atenolol 50 mg tablet 100 mg PO DAILY 03/12/19 03/12/19 ciprofloxacin HCl 500 mg tablet 500 mg PO BID 03/12/19 03/12/19 metronidazole 500 mg tablet 500 mg PO TID 03/12/19 03/12/19 ondansetron 4 mg disintegrating 4 mg PO Q4-6H PRN 03/12/19 03/12/19 tablet vancomycin 125 mg capsule 125 mg PO QID 03/12/19 03/12/19 Previous Rx's Medication Instructions Recorded ondansetron 4 mg disintegrating 4 mg PO Q8H #10 tab 03/18/20 tablet ondansetron 4 mg disintegrating 4 mg PO Q6H PRN #14 tab 05/25/20 tablet amlodipine 5 mg tablet 5 mg PO DAILY #20 tab 11/29/20 metoclopramide HCl 10 mg tablet 10 mg PO Q6H PRN #20 tab 04/16/21 (Reglan) levofloxacin 750 mg tablet 750 mg PO DAILY #7 tab 08/24/21 amoxicillin 875 mg-potassium 1 tab PO Q12H #20 tab 09/04/21 clavulanate 125 mg tablet Allergies Allergy/AdvReac Type Severity Reaction Status Date / Time barium iodide Allergy Severe Gastrointestinal Verified 09/04/21 21:08 Upset methadone Allergy Severe Blurry Verified 09/04/21 21:08 Vision Sulfa (Sulfonamide Allergy Severe Rash Verified 09/04/21 21:08 Antibiotics) Review of Systems Review of Systems Narrative: GENERAL: Denies chills, fatigue, malaise, fever, sweats. HEENT: Denies sinus pain, ear pain, sore throat, difficulty swallowing, dizziness. RESPIRATORY: Denies dyspnea, cough, wheezing, hemoptysis, sputum. CARDIOVASCULAR: Denies chest pain, palpitations, orthopnea, edema, GASTROINTESTINAL: See HPI : Denies dysuria, frequency, incontinence, hematuria, urinary retention. MUSCULOSKELETAL: denies weakness, joint pain, or bony pain SKIN: Denies rash, skin lesions, or other NEUROLOGIC: Denies weakness, headache, numbness, change in speech, confusion, seizures, incoordination. PSYCHIATRIC: No concerning psychosocial issues. 12 point review of systems is negative except for those stated above Patient History Medical History Clostridium difficile infection Social History Smoking Status: Never smoker Smoking Status: Never smoker alcohol intake frequency: 0-2 drinks per day Substance Use Type: marijuana Exam Narrative Exam Narrative: GENERAL: [61 year old patient appears stated age. Well-developed patient, in mild distress. HEAD: Atraumatic. Normocephalic. EYES: Pupils equal round and reactive. Extraocular motions intact. No scleral icterus. No injection or drainage. ENT: Nose without bleeding, purulent drainage. Throat without erythema, tonsillar hypertrophy or exudate. Airway patent. NECK: Trachea midline. Non tender CARDIOVASCULAR: Regular rate and rhythm without murmurs, gallops, or rubs. RESPIRATORY: Clear to auscultation. Breath sounds equal bilaterally. No wheezes, rales, or rhonchi. GASTROINTESTINAL: Abdomen soft, mild left lower quadrant pain nondistended. EXTREMITIES: No edema or joint tenderness. BACK: Nontender without deformity or crepitance. No flank tenderness. NEURO: AOx3. SKIN: No rash or erythema of visible areas Initial Vital Signs Initial Vital Signs: Vital Signs Temperature 98.3 F 09/04/21 17:41 Pulse Rate 110 H 09/04/21 17:41 Respiratory Rate 22 09/04/21 17:41 Blood Pressure 166/94 H 09/04/21 17:41 Pulse Oximetry 100 09/04/21 17:41 Course Orders Ordered: ED Orders 09/04/21 19:55 Urine Microscopic Stat Discontinued Medications Amoxicillin/Clavulanate Potassium (Amoxicillin/Clav 875/125 Mg) 1 tab PO NOW ONE Stop: 09/04/21 20:55 Last Admin: 09/04/21 21:09 Dose: 1 tab Documented by: JENNY Sodium Chloride (Normal Saline 0.9%) 1,000 mls @ 1,000 mls/hr IV BOLUS ONE Stop: 09/04/21 21:08 Last Infusion: 09/04/21 21:10 Dose: 0 mls/hr Documented by: Admin: 09/04/21 20:40 Dose: 1,000 mls/hr Documented by: KATINA Vital Signs Vital signs: Vital Signs - 8 hr 09/04/21 21:14 Pulse Rate 98 H Respiratory Rate 16 Blood Pressure 122/78 Pulse Oximetry 99 MDM - Abdominal Pain Lab Data Result diagrams: 09/04/21 18:00 09/04/21 18:00 Labs: Lab Results 09/04/21 09/04/21 09/04/21 Range/Units 18:00 18:00 19:55 WBC 13.5 H (4.5-11.0) X10^3/uL RBC 5.50 (4.5-5.9) X10^6/uL Hgb 16.8 (13.5-17.5) g/dL Hct 48.8 (41-53) % MCV 88.7 (80-100) fL MCH 30.6 (26-34) PG MCHC 34.5 (30-36) % RDW 13.4 (11.6-14.8) % Plt Count 323 (150-400) X10^3/uL Neut % (Auto) 95.1 H (50-75) % Lymph % (Auto) 3.0 L (25-40) % [place] % (Auto) 1.7 L (3-14) % Eos % (Auto) 0.0 L (2-4) % Baso % (Auto) 0.2 (0-2) % Neut # (Auto) 07770 H (1152-0243) /uL Lymph # (Auto) 400 L (8809-8313) /uL [place] # (Auto) 200 (0-900) /uL Eos # (Auto) 0 (0-450) /uL Baso # (Auto) 0 (0-100) /uL Sodium 142 (137-145) mmol/L Potassium 4.5 (3.4-5.1) mmol/L Chloride 104 (98-107) mmol/L Carbon Dioxide 19 L (22-32) mmol/L BUN 16 (9-20) mg/dL Creatinine 0.83 (0.66-1.25) mg/dL Estimated GFR > 60 (>60) mL/min BUN/Creatinine Ratio 19.3 (6-22) Glucose 176 H (80-110) mg/dL Calcium 10.2 (8.4-10.2) mg/dL Total Bilirubin 1.4 H (0.2-1.3) mg/dL AST 36 (17-59) IU/L ALT 35 (<50) IU/L Alkaline Phosphatase 79 (38-126) U/L Total Protein 9.1 H (6.3-8.2) g/dL Albumin 5.3 H (3.5-5.0) g/dL Globulin 3.8 (1.7-4.1) g/dL Albumin/Globulin Ratio 1.4 (1.0-2.8) Lipase 32 (23-300) U/L Urine RBC 0-1/hpf (0-5/HPF) Urine WBC 1-5/hpf (0-5/HPF) Ur Squamous Epith Cells 0-1 /hpf (0-5/HPF) Other Crystals 2+ Amorphous Sediment 2+ Urine Bacteria None seen (None) Urine Mucus 1+ H (Negative) Ur Culture Indicated? Cult not indicated Point of care testing: Urine Dip Bedside Urine Glucose Negative Bedside Urine Bilirubin - Negative Bedside Urine Ketone +++ 80 Urine Specific [place] 1.030 Bedside Urine Occult Blood +/- Bedside Urine pH 6 Bedside Urine Protein +++ 300 Bedside Urine Urobilinogen - Negative Bedside Urine Nitrite - Negative Bedside Urine Leukocytes - Negative Esterase Imaging Data Abdominal x-ray: Radiologist's Impression: [address] [address] XRay Report Signed Patient: Huang Leahy MR#: [id number] : 1960 Acct:[id number] Age/Sex: 61 / M Date of Service: 09/04/21 Loc: ED Accession Number: [id number] ?? Procedure: XR acute abdomen series Ordering Provider: Rodney Bateman D.O. PROCEDURE:? XR ACUTE ABDOMEN SERIES ? INDICATIONS:? N/V ? TECHNIQUE:? One view chest and two views of the abdomen were acquired.? ? COMPARISON:? [facility], CT, CT ABDOMEN PELVIS W CON, 08/24/2021, 18:06. ? FINDINGS:? ? Surgical changes and devices:? Postsurgical changes are seen from extensive spinal fixation with hardware extending from the upper thoracic spine through the sacrum with bilateral sacroiliac screws. ? Chest:? Lungs are clear.? Heart size is normal.? No pleural effusions.? No pneumoperitoneum.? ? Abdomen:? There is a relative paucity of bowel gas in the abdomen and pelvis.? No dilated bowel loops are seen.? No suspicious calcifications.? Visualized solid organ contours appear normal.? ? Bones:? No suspicious bony lesions.? ? IMPRESSION:? Nonobstructive bowel gas pattern.? No pneumoperitoneum.? Extensive spinal fusion hardware. ? ? Dictated by: Brant Ruiz M.D. on 09/04/2021 at 18:58 ? ? Approved by: Brant Ruiz M.D. on 09/04/2021 at 19:00 ? MDM Narrative Medical decision making narrative: Patient has very reassuring history and physical exam, no signs of sepsis and x-ray would suggest against any obstructive process. With such reassuring labs we discussed whether not it would be appropriate to do another round of advanced imaging in the form of a CT. We sure the opinion that that is not the best course of action for this visit. We discussed how similar symptoms are to his last visit in the improvement while on antibiotics. I had recommended a repeat course of the same, however he stated he would prefer not to take Levaquin as it made him feel funny but was open to other options. Prior cultures considered and would suggest pain and susceptibility for urine, Augmentin was chosen. He states that he had some nausea with it years ago but has had other opportunities to take it in which he tolerated it well. He is given extensive return precautions and questions have been answered to his apparent satisfaction Discharge Plan Departure Patient Disposition: Home Clinical Impression: Abdominal pain Instructions: DI for Abdominal Pain-Adult Activity Restrictions/Additional Instructions: *You have been diagnosed with [Abdominal pain] *What to do: *Please continue to take your regular medications as directed. [ x] New medication prescriptions sent to your pharmacy: [[facility] ] [ ] New medication written as a paper prescription [ ] No new medications given *Please follow up with your primary care provider in 2-3 days, call for an appointment. Let them know you were seen in the Emergency Department and that we ask that you be seen in follow up. We will electronically transmit a record of today's note if your PCP is in our system *If you do not have a primary care provider please contact the [facility] Resource line at [phone]. They will ask some questions about your medical history and help get you set up with a doctor in the community. *Return to Emergency Department if you should have any new, worsening or concerning symptoms, such as [fever greater than 101 F, shaking chills, worsening pain, persistent vomiting or other bothersome symptoms] Prescriptions: New amoxicillin-pot clavulanate 875-125 mg tablet 1 tab PO Q12H Qty: 20 0RF No Action metronidazole 500 mg tablet 500 mg PO TID 0RF acetaminophen-codeine 300-30 mg tablet 1 tab PO Q4-6H PRN (Reason: pain) 0RF amlodipine 5 mg tablet 5 mg PO DAILY 0RF ciprofloxacin HCl 500 mg tablet 500 mg PO BID 0RF vancomycin 125 mg capsule 125 mg PO QID 0RF ondansetron 4 mg tablet,disintegrating 4 mg PO Q4-6H PRN (Reason: Nausea) 0RF atenolol 50 mg tablet 100 mg PO DAILY 0RF amoxicillin-pot clavulanate 875-125 mg tablet 1 tab PO BID 0RF ondansetron 4 mg tablet,disintegrating 4 mg PO Q8H Qty: 10 0RF ondansetron 4 mg tablet,disintegrating 4 mg PO Q6H PRN (Reason: nausea and vomiting) Qty: 14 0RF amlodipine 5 mg tablet 5 mg PO DAILY Qty: 20 0RF metoclopramide HCl [Reglan] 10 mg tablet 10 mg PO Q6H PRN (Reason: nausea and vomiting) Qty: 20 0RF levofloxacin 750 mg tablet 750 mg PO DAILY Qty: 7 0RF Referrals: Ирина Weaver MD [Primary Care Provider] -
[2021-09-04] MEDS: SODIUM CHLORIDE 0.9% 1,000 ML 1000 ML IV (20:40)
[2021-09-04] MEDS: AMOXICILLIN/CLAV 875/125 MG 1 TAB PO (21:09)
[2021-09-04 21:14] VITALS: BP 122/78; PULSE 98; RESP 16; O2SAT 99
== END 2021-09-04 21:17 | disposition home or self-care (01) ==
PROVIDERS: Emergency Medicine; Emergency Provider Emergency Medicine; PCP Family Medicine
DX: R10.32 Left lower quadrant pain (principal); R11.0 Nausea; R03.0 Elevated blood-pressure reading, without diagnosis of hypertension
CPT/HCPCS: 36415; 74022; 80053; 81003; 81015; 83690; 85025; 93005; 99284

== ENCOUNTER 2021-09-09 00:20 | Emergency (ER) | payer OTHER, MEDICAID, SELFPAY ==
[2021-09-09 00:27] VITALS: BP 177/135; PULSE 135; RESP 22; TEMP 36.3; O2SAT 95; BMI 27.4
[2021-09-09] MEDS: ONDANSETRON 4 MG/2 ML INJ IV (01:05)
[2021-09-09] MEDS: SODIUM CHLORIDE 0.9% 1,000 ML 1000 ML IV (01:05)
[2021-09-09 01:27] LABS: Add Manual Diff / Slide Review NO; Basophils Absolute Auto 0 /uL (0-100); Basophils Percent Auto 0.3 % (0-2); Eosinophils Absolute Auto 0 /uL (0-450); Eosinophils Percent Auto 0.3 % (2-4); Hemoglobin 17.1 g/dL (13.5-17.5); Lymphocytes Absolute Auto 900 /uL (1100-4500); Lymphocytes Percent Auto 5.7 % (25-40); Mean Corpuscular HGB Conc 34.2 % (30-36); Mean Corpuscular Hemoglobin 30.6 PG (26-34); Mean Corpuscular Volume 89.5 fL (80-100); Monocytes Absolute Auto 600 /uL (0-900); Monocytes Percent Auto 3.8 % (3-14); Neutrophils Absolute Auto 14500 /uL (1500-7000); Neutrophils Percent Auto 89.9 % (50-75); Platelet Count 379 X10^3/uL (150-400); Red Blood Cell Count 5.58 X10^6/uL (4.5-5.9); Red Cell Distribution Width 13.5 % (11.6-14.8); White Blood Cell Count 16.1 X10^3/uL (4.5-11.0)
--- NOTE | 2021-09-09 01:28 | ED.NAVMDI ---
HPI - Nausea/Vomiting/Diarrhea General Chief complaint: Nausea/Vomiting/Diarrhea Stated complaint: n/v/f x1 week Time Seen by Provider: 09/09/21 00:57 Source: patient and family Mode of arrival: Ambulatory History of Present Illness HPI Narrative: Patient is a 61-year-old male. Has a longstanding history of abdominal issues. Has had C diff in the past. Has been here in the emergency department recently for similar symptoms. He comes in this evening for approximately 1 week of nausea and vomiting and diarrhea and abdominal discomfort. He has seen GI in the past for the symptoms. Has had multiple CT scans of his abdomen past for similar symptoms. Also having palpitations. Related Data Home Medications Medication Instructions Recorded Confirmed acetaminophen 300 mg-codeine 30 mg 1 tab PO Q4-6H PRN 03/12/19 tablet amlodipine 5 mg tablet 5 mg PO DAILY 03/12/19 03/12/19 amoxicillin 875 mg-potassium 1 tab PO BID 03/12/19 03/12/19 clavulanate 125 mg tablet atenolol 50 mg tablet 100 mg PO DAILY 03/12/19 03/12/19 ciprofloxacin HCl 500 mg tablet 500 mg PO BID 03/12/19 03/12/19 metronidazole 500 mg tablet 500 mg PO TID 03/12/19 03/12/19 ondansetron 4 mg disintegrating 4 mg PO Q4-6H PRN 03/12/19 03/12/19 tablet vancomycin 125 mg capsule 125 mg PO QID 03/12/19 03/12/19 Previous Rx's Medication Instructions Recorded ondansetron 4 mg disintegrating 4 mg PO Q8H #10 tab 03/18/20 tablet ondansetron 4 mg disintegrating 4 mg PO Q6H PRN #14 tab 05/25/20 tablet amlodipine 5 mg tablet 5 mg PO DAILY #20 tab 11/29/20 metoclopramide HCl 10 mg tablet 10 mg PO Q6H PRN #20 tab 04/16/21 (Reglan) levofloxacin 750 mg tablet 750 mg PO DAILY #7 tab 08/24/21 amoxicillin 875 mg-potassium 1 tab PO Q12H #20 tab 09/04/21 clavulanate 125 mg tablet Allergies Allergy/AdvReac Type Severity Reaction Status Date / Time barium iodide Allergy Severe Gastrointestinal Verified 09/04/21 21:08 Upset methadone Allergy Severe Blurry Verified 09/04/21 21:08 Vision Sulfa (Sulfonamide Allergy Severe Rash Verified 09/04/21 21:08 Antibiotics) Review of Systems Review of Systems ROS Unobtainable: All systems reviewed & are unremarkable except as noted in HPI and below Constitutional Constitutional: Reports fatigue, Denies fever(s) and Reports lethargy Cardiovascular Cardiovascular: Reports rapid heart rate and Denies dyspnea Respiratory Respiratory: Denies dyspnea Gastrointestinal Gastrointestinal: Reports abdominal pain, Reports diarrhea, Reports nausea and Reports vomiting Genitourinary Comments: No change in urinary symptoms, does report crystals in his urine Musculoskeletal Musculoskeletal: Reports system reviewed and no additional complaints, except as documented Integumentary/Breasts Skin/Breast: Denies rash Neurologic Neurologic: Reports system reviewed and no additional complaints, except as documented Psychiatric Psychiatric: Reports system reviewed and no additional complaints, except as documented Endocrine Endocrine: Reports fatigue Hematologic/Lymphatic On Anticoagulants: No Allergic/Immunologic Allergic/Immunologic: Reports system reviewed and no additional complaints, except as documented Patient History Medical History Clostridium difficile infection Fibromyalgia Social History Smoking Status: Never smoker Smoking Status: Never smoker alcohol intake frequency: 0-2 drinks per day Substance Use Type: marijuana Exam Initial Vital Signs Initial Vital Signs: Vital Signs Temperature 97.4 F L 09/09/21 00:27 Pulse Rate 135 H 09/09/21 00:27 Respiratory Rate 22 09/09/21 00:27 Blood Pressure 177/135 H 09/09/21 00:27 Pulse Oximetry 95 09/09/21 00:27 Const General: diaphoretic HENMT Head: normal to inspection and normocephalic Resp Effort & Inspection: normal respiratory effort and tachypneic Auscultation: clear to auscultation bilaterally Cardio Rate: tachycardic Rhythm: regular rhythm GI Palpation: soft, No firm, No guarding and tender Skin General: no rashes or lesions noted Neuro General: patient alert, patient awake and moves all extremities Extrem General: normal to inspection and capillary refill normal Psych Appearance: grossly normal and well kempt Course Orders Ordered: ED Orders 09/09/21 01:13 Complete Blood Count AUTO DIFF Stat Comprehensive Metabolic Panel Stat Lactate (Lactic Acid) Stat Lipase Stat Procalcitonin Stat 09/09/21 01:57 Blood Culture Stat Discontinued Medications Hydromorphone HCl (Hydromorphone 1 Mg Inj) 1 mg IV NOW ONE Stop: 09/09/21 02:17 Last Admin: 09/09/21 02:20 Dose: 1 mg Documented by: CHAPO Sodium Chloride (Normal Saline 0.9%) 1,000 mls @ 1,000 mls/hr IV BOLUS ONE Stop: 09/09/21 01:58 Last Infusion: 09/09/21 02:15 Dose: 0 mls/hr Documented by: Admin: 09/09/21 01:05 Dose: 1,000 mls/hr Documented by: RONY Metoclopramide HCl (Metoclopramide 10 Mg/2 Ml Inj) 10 mg IV NOW ONE Stop: 09/09/21 01:29 Last Admin: 09/09/21 01:35 Dose: 10 mg Documented by: KATIE Ondansetron HCl (Ondansetron 4 Mg/2 Ml Inj) 4 mg IV NOW ONE Stop: 09/09/21 01:00 Last Admin: 09/09/21 01:05 Dose: 4 mg Documented by: RONY Vital Signs Vital signs: Vital Signs - 8 hr 09/09/21 00:27 09/09/21 02:32 09/09/21 02:55 Temperature 97.4 F L Pulse Rate 135 H 112 H 102 H Respiratory Rate 22 20 18 Blood Pressure 177/135 H 185/115 H 144/86 H Pulse Oximetry 95 97 95 09/09/21 04:50 Temperature Pulse Rate 108 H Respiratory Rate 18 Blood Pressure 154/90 H Pulse Oximetry 97 MDM - Nausea/Vomiting/Diarrhea Medical Records Attestation: I reviewed the patient's medical records. Lab Data Attestation: I reviewed the patient's lab results. Result diagrams: 09/09/21 01:13 09/09/21 01:13 Labs: Lab Results 09/09/21 09/09/21 09/09/21 Range/Units 01:13 01:13 01:13 WBC 16.1 H (4.5-11.0) X10^3/uL RBC 5.58 (4.5-5.9) X10^6/uL Hgb 17.1 (13.5-17.5) g/dL Hct 50.0 (41-53) % MCV 89.5 (80-100) fL MCH 30.6 (26-34) PG MCHC 34.2 (30-36) % RDW 13.5 (11.6-14.8) % Plt Count 379 (150-400) X10^3/uL Neut % (Auto) 89.9 H (50-75) % Lymph % (Auto) 5.7 L (25-40) % [place] % (Auto) 3.8 (3-14) % Eos % (Auto) 0.3 L (2-4) % Baso % (Auto) 0.3 (0-2) % Neut # (Auto) 65588 H (3611-2116) /uL Lymph # (Auto) 900 L (2373-0317) /uL [place] # (Auto) 600 (0-900) /uL Eos # (Auto) 0 (0-450) /uL Baso # (Auto) 0 (0-100) /uL Sodium 142 (137-145) mmol/L Potassium 3.7 (3.4-5.1) mmol/L Chloride 107 (98-107) mmol/L Carbon Dioxide 19 L (22-32) mmol/L BUN 12 (9-20) mg/dL Creatinine 1.05 (0.66-1.25) mg/dL Estimated GFR > 60 (>60) mL/min BUN/Creatinine Ratio 11.4 (6-22) Glucose 130 H (80-110) mg/dL Lactate 3.0 H (0.7-2.1) mmol/L Calcium 10.3 H (8.4-10.2) mg/dL Total Bilirubin 1.3 (0.2-1.3) mg/dL AST 28 (17-59) IU/L ALT 24 (<50) IU/L Alkaline Phosphatase 70 (38-126) U/L Total Protein 8.6 H (6.3-8.2) g/dL Albumin 5.1 H (3.5-5.0) g/dL Globulin 3.5 (1.7-4.1) g/dL Albumin/Globulin Ratio 1.5 (1.0-2.8) Lipase 52 D (23-300) U/L Procalcitonin (<0.5) ng/mL 09/09/21 09/09/21 Range/Units 01:13 03:33 WBC (4.5-11.0) X10^3/uL RBC (4.5-5.9) X10^6/uL Hgb (13.5-17.5) g/dL Hct (41-53) % MCV (80-100) fL MCH (26-34) PG MCHC (30-36) % RDW (11.6-14.8) % Plt Count (150-400) X10^3/uL Neut % (Auto) (50-75) % Lymph % (Auto) (25-40) % [place] % (Auto) (3-14) % Eos % (Auto) (2-4) % Baso % (Auto) (0-2) % Neut # (Auto) (7238-1262) /uL Lymph # (Auto) (8743-6971) /uL [place] # (Auto) (0-900) /uL Eos # (Auto) (0-450) /uL Baso # (Auto) (0-100) /uL Sodium (137-145) mmol/L Potassium (3.4-5.1) mmol/L Chloride (98-107) mmol/L Carbon Dioxide (22-32) mmol/L BUN (9-20) mg/dL Creatinine (0.66-1.25) mg/dL Estimated GFR (>60) mL/min BUN/Creatinine Ratio (6-22) Glucose (80-110) mg/dL Lactate 1.2 (0.7-2.1) mmol/L Calcium (8.4-10.2) mg/dL Total Bilirubin (0.2-1.3) mg/dL AST (17-59) IU/L ALT (<50) IU/L Alkaline Phosphatase (38-126) U/L Total Protein (6.3-8.2) g/dL Albumin (3.5-5.0) g/dL Globulin (1.7-4.1) g/dL Albumin/Globulin Ratio (1.0-2.8) Lipase (23-300) U/L Procalcitonin 0.05 (<0.5) ng/mL MDM Narrative Medical decision making narrative: Reviewed patient's medical record and his presentation today is similar to prior presentations with the last 1 being within the past several days. Upon arrival patient was tachycardic. Not febrile. Does have a leukocytosis. Had elevated lactate. I did consider infectious etiology however also had a very high suspicion that these vital sign lab abnormalities were related to his vomiting, diaphoresis, dehydration and other presenting symptoms. Leukocytosis could very well be stress reaction. Elevated lactate secondary to the vomiting and coughing and stress that he has been under for the past several days. I did not feel the need to immediately start antibiotics. Patient was given IV fluids. Was given Zofran Reglan which did calm the retching somewhat however patient states that his real issue that he is having is the abdominal pain. He was given 1 mg of Dilaudid and after more than 1 hour patient was no longer vomiting pain urine he states he felt much better. His heart rate improved. His lactate resolved. Patient was unable to provide stool sample here in the ER. It appears that he is currently being tested for C diff by outside provider. No indication to start empiric treatment to that currently as I told him that we should have a positive test before we exposed him to further antibiotics. Considered advanced imaging of his abdomen to include x-rays or CT scan however given his improvement of symptoms after the pain medication I feel that we can hold on this for now. Patient did ask for pain medication at home however given his past issues of feel that it would be best if we hold on any opioid pain medication for now. He was given return precautions. He expressed understanding and agreement. Discharge Plan Departure Patient Disposition: Home Clinical Impression: Nausea, Vomiting, and Diarrhea, Abdominal pain Instructions: DI for Abdominal Pain-Adult, Nausea and Vomiting-Adult Activity Restrictions/Additional Instructions: Recommend that you continue to take all of your medications as directed. Keep all of your scheduled medical appointments. Return to the emergency department for any new or worsening symptoms. Prescriptions: No Action metronidazole 500 mg tablet 500 mg PO TID 0RF acetaminophen-codeine 300-30 mg tablet 1 tab PO Q4-6H PRN (Reason: pain) 0RF amlodipine 5 mg tablet 5 mg PO DAILY 0RF ciprofloxacin HCl 500 mg tablet 500 mg PO BID 0RF vancomycin 125 mg capsule 125 mg PO QID 0RF ondansetron 4 mg tablet,disintegrating 4 mg PO Q4-6H PRN (Reason: Nausea) 0RF atenolol 50 mg tablet 100 mg PO DAILY 0RF amoxicillin-pot clavulanate 875-125 mg tablet 1 tab PO BID 0RF ondansetron 4 mg tablet,disintegrating 4 mg PO Q8H Qty: 10 0RF ondansetron 4 mg tablet,disintegrating 4 mg PO Q6H PRN (Reason: nausea and vomiting) Qty: 14 0RF amlodipine 5 mg tablet 5 mg PO DAILY Qty: 20 0RF metoclopramide HCl [Reglan] 10 mg tablet 10 mg PO Q6H PRN (Reason: nausea and vomiting) Qty: 20 0RF amoxicillin-pot clavulanate 875-125 mg tablet 1 tab PO Q12H Qty: 20 0RF levofloxacin 750 mg tablet 750 mg PO DAILY Qty: 7 0RF Referrals: Ирина Weaver MD [Primary Care Provider] -
[2021-09-09 01:33] LABS: Alanine Aminotransferase 24 IU/L (<50); Albumin 5.1 g/dL (3.5-5.0); Albumin Globulin Ratio 1.5 (1.0-2.8); Alkaline Phosphatase 70 U/L (38-126); Aspartate Aminotransferase 28 IU/L (17-59); BUN Creatinine Ratio 11.4 (6-22); Bilirubin Total 1.3 mg/dL (0.2-1.3); Blood Urea Nitrogen 12 mg/dL (9-20); Calcium 10.3 mg/dL (8.4-10.2); Carbon Dioxide 19 mmol/L (22-32); Chloride 107 mmol/L (98-107); Estimated Glomerular Filt Rate > 60 mL/min (>60); Globulin 3.5 g/dL (1.7-4.1); Glucose 130 mg/dL (80-110); HEMOLYSIS < 15 (0-50); Lipase 52 U/L (23-300); Potassium 3.7 mmol/L (3.4-5.1); Sodium 142 mmol/L (137-145); Total Protein 8.6 g/dL (6.3-8.2)
[2021-09-09] MEDS: METOCLOPRAMIDE 10 MG/2 ML INJ IV (01:35)
[2021-09-09 02:13] LABS: Procalcitonin 0.05 ng/mL (<0.5)
[2021-09-09] MEDS: HYDROMORPHONE 1 MG INJ IV (02:20)
[2021-09-09 02:32] VITALS: BP 185/115; PULSE 112; RESP 20; O2SAT 97
[2021-09-09 02:55] VITALS: BP 144/86; PULSE 102; RESP 18; O2SAT 95
[2021-09-09 03:19] LABS: Reflexed Lactate in 2 Hours Y
[2021-09-09 03:53] LABS: Lactate 2HR (Lactic Acid Rflx) 1.2 mmol/L (0.7-2.1)
[2021-09-09 04:50] VITALS: BP 154/90; PULSE 108; RESP 18; O2SAT 97
[2021-09-12 19:41] LABS: Acinetobacter baumannii Not Detected (Not Detect); Candida albicans Not Detected (Not Detect); Candida glabrata Not Detected (Not Detect); Candida krusei Not Detected (Not Detect); Candida parapsilosis Not Detected (Not Detect); Candida tropicalis Not Detected (Not Detect); E. coli Not Detected (Not Detect); Enterobacter cloacae complex Not Detected (Not Detect); Enterobacteriaceae species Not Detected (Not Detect); Enterococcus species Not Detected (Not Detect); Haemophilus influenzae Not Detected (Not Detect); KPC (carbapenem-resist gene) Not Detected (Not Detect); Listeria monocytogenes Not Detected (Not Detect); Methicillin-resistant gene Not Detected (Not Detect); Neisseria meningitidis Not Detected (Not Detect); Proteus species Not Detected (Not Detect); Pseudomonas aeruginosa Not Detected (Not Detect); Serratia marcescens Not Detected (Not Detect); Staphylococcus species Not Detected (Not Detect); Streptococcus agalactiae (Gr B Not Detected (Not Detect); Streptococcus pneumonia Not Detected (Not Detect); Streptococcus pyogenes (Gr A) Not Detected (Not Detect); Streptococcus species Not Detected (Not Detect); Vancomycin-rest genes A/B Not Detected (Not Detect)
== END 2021-09-09 04:51 | disposition home or self-care (01) ==
PROVIDERS: Emergency Provider Emergency Medicine; PCP Family Medicine
DX: R11.2 Nausea with vomiting, unspecified (principal); R19.7 Diarrhea, unspecified; R10.9 Unspecified abdominal pain; Z88.5 Allergy status to narcotic agent
CPT/HCPCS: 36415; 80053; 83605; 83690; 84145; 85025; 87040; 87150; 87205; 96361; 96374; 96375; 99284; J1170; J2405; J2765

== ENCOUNTER 2021-10-01 19:21 | Emergency (ER) | payer OTHER, MEDICAID, SELFPAY ==
[2021-10-01 19:32] VITALS: BP 168/85; PULSE 110; RESP 22; TEMP 37.1; O2SAT 97
[2021-10-01 22:35] VITALS: BP 148/106; PULSE 109; RESP 16; TEMP 36.8; O2SAT 96
--- NOTE | 2021-10-02 00:38 | ED.SKABFB ---
HPI - Skin/Abscess/Foreign Bdy General Chief complaint: Skin/Abscess/Foreign Body Stated complaint: Sores on Face Time Seen by Provider: 10/02/21 00:31 Source: patient Mode of arrival: Ambulatory History of Present Illness HPI narrative: 61-year-old gentleman with a history of recurrent C diff for which he is just completed a course of antibiotics comes in with complaints of parasites under his skin causing skin lesions. He has a couple of lesions over his face and 1 just above his umbilicus. He notes that if he can pick the small black parasites out as they come to the surface then it seems to improve. He describes an area of newly developing parasitosis just under his left eye and he is concerned that is going to involve his eye. Notes no fevers and notes that his diarrhea is finally resolved. Related Data Home Medications Medication Instructions Recorded Confirmed acetaminophen 300 mg-codeine 30 mg 1 tab PO Q4-6H PRN 03/12/19 tablet amlodipine 5 mg tablet 5 mg PO DAILY 03/12/19 03/12/19 amoxicillin 875 mg-potassium 1 tab PO BID 03/12/19 03/12/19 clavulanate 125 mg tablet atenolol 50 mg tablet 100 mg PO DAILY 03/12/19 03/12/19 ciprofloxacin HCl 500 mg tablet 500 mg PO BID 03/12/19 03/12/19 metronidazole 500 mg tablet 500 mg PO TID 03/12/19 03/12/19 ondansetron 4 mg disintegrating 4 mg PO Q4-6H PRN 03/12/19 03/12/19 tablet vancomycin 125 mg capsule 125 mg PO QID 03/12/19 03/12/19 Previous Rx's Medication Instructions Recorded ondansetron 4 mg disintegrating 4 mg PO Q8H #10 tab 03/18/20 tablet ondansetron 4 mg disintegrating 4 mg PO Q6H PRN #14 tab 05/25/20 tablet amlodipine 5 mg tablet 5 mg PO DAILY #20 tab 11/29/20 metoclopramide HCl 10 mg tablet 10 mg PO Q6H PRN #20 tab 04/16/21 (Reglan) levofloxacin 750 mg tablet 750 mg PO DAILY #7 tab 08/24/21 amoxicillin 875 mg-potassium 1 tab PO Q12H #20 tab 09/04/21 clavulanate 125 mg tablet Allergies Allergy/AdvReac Type Severity Reaction Status Date / Time barium iodide Allergy Severe Gastrointestinal Verified 09/04/21 21:08 Upset methadone Allergy Severe Blurry Verified 09/04/21 21:08 Vision Sulfa (Sulfonamide Allergy Severe Rash Verified 09/04/21 21:08 Antibiotics) Review of Systems Review of Systems Narrative: Remainder of complete review of systems is otherwise unremarkable except for that included in the HPI. Patient History Medical History Clostridium difficile infection Fibromyalgia Social History Smoking Status: Never smoker Smoking Status: Never smoker alcohol intake frequency: 0-2 drinks per day Substance Use Type: marijuana Exam Initial Vital Signs Initial Vital Signs: Vital Signs Temperature 98.8 F 10/01/21 19:32 Pulse Rate 110 H 10/01/21 19:32 Respiratory Rate 22 10/01/21 19:32 Blood Pressure 168/85 H 10/01/21 19:32 Pulse Oximetry 97 10/01/21 19:32 General: Alert appropriate in no acute distress Respiratory: Able to speak in full sentences, no obvious respiratory distress Skin: For lesions over his chin cheek and temporal area with self-induced irritation from picking at the areas. The area of concern under is I with the reported black parasites just underthe skin is objectively normal. Neurologic: Grossly intact no obvious asymmetries or abnormalities Psych: appropriate insight and affect, cooperative Course Vital Signs Vital signs: Vital Signs - 8 hr 10/01/21 19:32 10/01/21 22:35 Temperature 98.8 F 98.2 F Pulse Rate 110 H 109 H Respiratory Rate 22 16 Blood Pressure 168/85 H 148/106 H Pulse Oximetry 97 96 MDM - Skin/Abscess/Foreign Bdy MDM Narrative Medical decision making narrative: 61-year-old gentleman with parasitosis suspected methamphetamine use. Did not directly ask about methamphetamine use. The classic explanation and description and insistent that you could clearly see the parasites and he can feel them moving under his skin is demonstrated today. Some of the lesions do appear to be moderately superinfected and initially had considered antibiotics until I became aware of the recurrent C diff infection. He states that he does have Bactroban at home and he has been using it and it is not making any difference. He was wanting treatment for his parasites and I explained that I was not going to be able to help with that. He said he would follow up in the walk-in clinic. He also indicated that he understood now why people went to [facility] for treatment for parasites as doctors do not seem to understand or be able to treat this. Patient was quite polite but chose to leave prior to discharge instructions being given. Discharge Plan Departure Patient Disposition: Home Clinical Impression: Delusions of parasitosis, Impetigo Prescriptions: No Action metronidazole 500 mg tablet 500 mg PO TID 0RF acetaminophen-codeine 300-30 mg tablet 1 tab PO Q4-6H PRN (Reason: pain) 0RF amlodipine 5 mg tablet 5 mg PO DAILY 0RF ciprofloxacin HCl 500 mg tablet 500 mg PO BID 0RF vancomycin 125 mg capsule 125 mg PO QID 0RF ondansetron 4 mg tablet,disintegrating 4 mg PO Q4-6H PRN (Reason: Nausea) 0RF atenolol 50 mg tablet 100 mg PO DAILY 0RF amoxicillin-pot clavulanate 875-125 mg tablet 1 tab PO BID 0RF ondansetron 4 mg tablet,disintegrating 4 mg PO Q8H Qty: 10 0RF ondansetron 4 mg tablet,disintegrating 4 mg PO Q6H PRN (Reason: nausea and vomiting) Qty: 14 0RF amlodipine 5 mg tablet 5 mg PO DAILY Qty: 20 0RF metoclopramide HCl [Reglan] 10 mg tablet 10 mg PO Q6H PRN (Reason: nausea and vomiting) Qty: 20 0RF amoxicillin-pot clavulanate 875-125 mg tablet 1 tab PO Q12H Qty: 20 0RF levofloxacin 750 mg tablet 750 mg PO DAILY Qty: 7 0RF Referrals: Ирина Weaver MD [Primary Care Provider] -
== END 2021-10-02 00:50 | disposition home or self-care (01) ==
PROVIDERS: Emergency Provider Emergency Medicine; PCP Family Medicine
DX: L01.00 Impetigo, unspecified (principal); F22 Delusional disorders
CPT/HCPCS: 99281

== ENCOUNTER 2021-10-12 04:45 | Emergency (ER) | payer OTHER, MEDICAID, SELFPAY ==
[2021-10-12 04:45] VITALS: BP 180/100; PULSE 104; RESP 18; TEMP 36.5; O2SAT 95
--- NOTE | 2021-10-12 05:02 | ED.SKABFB ---
HPI - Skin/Abscess/Foreign Bdy General Chief complaint: Skin/Abscess/Foreign Body Stated complaint: left hand spider bite Time Seen by Provider: 10/12/21 04:55 Source: patient Mode of arrival: Ambulatory Limitations: no limitations History of Present Illness HPI narrative: 61-year-old male who is here for evaluation he states is a spider bite on the back of his left hand. He stated that it has been hurting for the past several days. He did change the tire on his car but does not remember hurting his hand any way. He did have a scab on the back of it and the scab came off today. There was a small amount of drainage. He has been using some baking soda another cleaning solutions on at prior to coming to the emergency department. Related Data Home Medications Medication Instructions Recorded Confirmed acetaminophen 300 mg-codeine 30 mg 1 tab PO Q4-6H PRN 03/12/19 tablet amlodipine 5 mg tablet 5 mg PO DAILY 03/12/19 03/12/19 amoxicillin 875 mg-potassium 1 tab PO BID 03/12/19 03/12/19 clavulanate 125 mg tablet atenolol 50 mg tablet 100 mg PO DAILY 03/12/19 03/12/19 ciprofloxacin HCl 500 mg tablet 500 mg PO BID 03/12/19 03/12/19 metronidazole 500 mg tablet 500 mg PO TID 03/12/19 03/12/19 ondansetron 4 mg disintegrating 4 mg PO Q4-6H PRN 03/12/19 03/12/19 tablet vancomycin 125 mg capsule 125 mg PO QID 03/12/19 03/12/19 Previous Rx's Medication Instructions Recorded ondansetron 4 mg disintegrating 4 mg PO Q8H #10 tab 03/18/20 tablet ondansetron 4 mg disintegrating 4 mg PO Q6H PRN #14 tab 05/25/20 tablet amlodipine 5 mg tablet 5 mg PO DAILY #20 tab 11/29/20 metoclopramide HCl 10 mg tablet 10 mg PO Q6H PRN #20 tab 04/16/21 (Reglan) levofloxacin 750 mg tablet 750 mg PO DAILY #7 tab 08/24/21 amoxicillin 875 mg-potassium 1 tab PO Q12H #20 tab 09/04/21 clavulanate 125 mg tablet cephalexin 500 mg capsule 500 mg PO QID 5 Days #20 cap 10/12/21 Allergies Allergy/AdvReac Type Severity Reaction Status Date / Time barium iodide Allergy Severe Gastrointestinal Verified 09/04/21 21:08 Upset methadone Allergy Severe Blurry Verified 09/04/21 21:08 Vision Sulfa (Sulfonamide Allergy Severe Rash Verified 09/04/21 21:08 Antibiotics) Review of Systems Musculoskeletal Musculoskeletal: Reports system reviewed and no additional complaints, except as documented Integumentary/Breasts Skin/Breast: Reports system reviewed and no additional complaints, except as documented Neurologic Neurologic: Reports system reviewed and no additional complaints, except as documented Patient History Medical History Clostridium difficile infection Fibromyalgia Social History Smoking Status: Never smoker Smoking Status: Never smoker alcohol intake frequency: 0-2 drinks per day Substance Use Type: marijuana Exam Initial Vital Signs Initial Vital Signs: Vital Signs Temperature 97.7 F 10/12/21 04:45 Pulse Rate 104 H 10/12/21 04:45 Respiratory Rate 18 10/12/21 04:45 Blood Pressure 180/100 H 10/12/21 04:45 Pulse Oximetry 95 10/12/21 04:45 HENMT Head: normal to inspection and normocephalic Skin Other: Patient has a 3 cm small ulceration on the on the dorsum of the left hand. Does have some surrounding erythema. No fluctuance noted. Neuro Sensory Exam: no sensory deficits noted Extrem Other: Pain with palpation over the small ulceration on the back of the left hand. Course Vital Signs Vital signs: Vital Signs - 8 hr 10/12/21 04:45 Temperature 97.7 F Pulse Rate 104 H Respiratory Rate 18 Blood Pressure 180/100 H Pulse Oximetry 95 MDM - Skin/Abscess/Foreign Bdy MDM Narrative Medical decision making narrative: Patient does have a small ulceration with some surrounding erythema on the dorsum the left hand. There is no fluctuance that would make me concerned for an abscess. Will place the patient on antibiotics for treatment of the cellulitis. Is given return precautions. He expressed understanding and agreement. Discharge Plan Departure Patient Disposition: Home Clinical Impression: Cellulitis Instructions: DI for Cellulitis -- Adult Activity Restrictions/Additional Instructions: Please take the antibiotics as directed. He can put topical antibiotic ointment over the area. You can wash your hands like normal. Return to the emergency department for any new or worsening symptoms Prescriptions: New cephalexin 500 mg capsule 500 mg PO QID 5 Days Qty: 20 0RF No Action metronidazole 500 mg tablet 500 mg PO TID 0RF acetaminophen-codeine 300-30 mg tablet 1 tab PO Q4-6H PRN (Reason: pain) 0RF amlodipine 5 mg tablet 5 mg PO DAILY 0RF ciprofloxacin HCl 500 mg tablet 500 mg PO BID 0RF vancomycin 125 mg capsule 125 mg PO QID 0RF ondansetron 4 mg tablet,disintegrating 4 mg PO Q4-6H PRN (Reason: Nausea) 0RF atenolol 50 mg tablet 100 mg PO DAILY 0RF amoxicillin-pot clavulanate 875-125 mg tablet 1 tab PO BID 0RF ondansetron 4 mg tablet,disintegrating 4 mg PO Q8H Qty: 10 0RF ondansetron 4 mg tablet,disintegrating 4 mg PO Q6H PRN (Reason: nausea and vomiting) Qty: 14 0RF amlodipine 5 mg tablet 5 mg PO DAILY Qty: 20 0RF metoclopramide HCl [Reglan] 10 mg tablet 10 mg PO Q6H PRN (Reason: nausea and vomiting) Qty: 20 0RF amoxicillin-pot clavulanate 875-125 mg tablet 1 tab PO Q12H Qty: 20 0RF levofloxacin 750 mg tablet 750 mg PO DAILY Qty: 7 0RF Referrals: Ирина Weaver MD [Primary Care Provider] -
[2021-10-12 05:19] VITALS: BP 164/90
== END 2021-10-12 05:20 | disposition home or self-care (01) ==
PROVIDERS: Emergency Provider Emergency Medicine; PCP Family Medicine
DX: L03.114 Cellulitis of left upper limb (principal); W57.XXXA Bitten or stung by nonvenomous insect and other nonvenomous arthropods, initial encounter
CPT/HCPCS: 99281

== ENCOUNTER → 2021-11-22 12:59 | Outpatient (CLI) | payer OTHER, MEDICAID, SELFPAY ==
--- NOTE | 2021-11-22 13:55 | DI.RAD.S_ITS ---
PROCEDURE: XR T AND L SPINE 2 TO 3 VIEWS INDICATIONS: CERVICAL SPONDYLOSIS, SCOLIOSIS OF THORACOLUMBAR REGION TECHNIQUE: 2 views acquired of the thoracolumbar spine. COMPARISON: None. FINDINGS: Bones: S shaped scoliosis of the thoracolumbar spine with convex right curvature of the thoracic spine and convex left curvature of the lumbar spine. Posterior fixation hardware extending from T4 through bony pelvis. L5-S1 anterior fixation hardware. Orthopedic hardware is in expected position. Orthopedic hardware is intact. No lucencies at the bone-hardware interface. No acute fractures or dislocations. Visualized inferior ribs appear intact. No suspicious bony lesions. Soft tissues: No suspicious soft tissue calcifications. IMPRESSION: S-shaped thoracolumbar spine scoliosis. T4-bony pelvis fixation hardware. Dictated by: Lillian Ozuna MD, PhD on 11/23/2021 at 12:02 Approved by: Lillian Ozuna MD, PhD on 11/23/2021 at 12:05
--- NOTE | 2021-11-22 13:55 | DI.RAD.S_ITS ---
PROCEDURE: XR CERVICAL SPINE 4V OR 5V INDICATIONS: CERVICAL SPONDYLOSIS, SCOLIOSIS OF THORACOLUMBAR REGION TECHNIQUE: 5 views of the cervical spine acquired. COMPARISON: None. FINDINGS: Bones: No fractures or dislocations to the T2 level. There is reversal normal cervical spine curvature from C4-C7. Severe C5-C6, C6-C7 and C7-T1 degenerative disc disease. Moderate C2-C3, C3-C4 and C4-C5 degenerative disc disease. Moderate facet hypertrophy noted throughout the cervical spine. Moderate bilateral C5-C6 uncovertebral joint hypertrophy. Moderate right and mild left C 3-C4 and C4-C5 uncovertebral hypertrophy. Mild right and moderate left C3-C4 neural foraminal narrowing. Mild bilateral C4-C5 neural foraminal narrowing. Soft tissues: No prevertebral soft tissue swelling. IMPRESSION: 1. Multilevel degenerative disc disease. 2. Multilevel facet arthropathy. 3. No fracture. No acute osseous lesion. If symptoms and/or clinical suspicion for pathology persists, evaluation with MRI should be considered for further assessment. Dictated by: Lillian Ozuna MD, PhD on 11/23/2021 at 11:59 Approved by: Lillian Ozuna MD, PhD on 11/23/2021 at 12:02
== END ==
PROVIDERS: PCP Family Medicine; Referring Provider Orthopaedic Surgery; Visit Provider Orthopaedic Surgery
DX: M47.22 Other spondylosis with radiculopathy, cervical region (principal); M50.11 Cervical disc disorder with radiculopathy, high cervical region; M41.115 Juvenile idiopathic scoliosis, thoracolumbar region; G44.86 Cervicogenic headache
CPT/HCPCS: 72050; 72082

== ENCOUNTER 2022-06-26 20:08 | Emergency (ER) | payer OTHER, MEDICAID, SELFPAY ==
[2022-06-26 20:10] VITALS: BP 183/104; PULSE 106; RESP 18; TEMP 36.8; O2SAT 97; BMI 26.6
--- NOTE | 2022-06-26 20:18 | DI.RAD.S_ITS ---
PROCEDURE: XR ACUTE ABDOMEN SERIES INDICATIONS: Abdominal pain TECHNIQUE: One view chest and two views of the abdomen were acquired. COMPARISON: [facility], CR, XR ACUTE ABDOMEN SERIES, 09/04/2021, 18:31. FINDINGS: Surgical changes and devices: Again noted is extensive fixation of thoracic and lumbar spine. Chest: Lungs are clear. Heart size is enlarged. No pleural effusions. No pneumoperitoneum. Abdomen: Bowel gas pattern is normal. No suspicious calcifications. Visualized solid organ contours appear normal. Bones: No suspicious bony lesions. IMPRESSION: No evidence of bowel obstruction or gross free air. No abnormal renal calcifications are seen. No acute cardiopulmonary pathology. Dictated by: Sudhakar Sylvester M.D. on 06/26/2022 at 20:39 Approved by: Sudhakar Sylvester M.D. on 06/26/2022 at 20:39
[2022-06-26 20:33] LABS: Add Manual Diff / Slide Review NO; Basophils Absolute Auto 0 /uL (0-100); Basophils Percent Auto 0.5 % (0-2); Eosinophils Absolute Auto 100 /uL (0-450); Hematocrit 50.1 % (41-53); Hemoglobin 17.2 g/dL (13.5-17.5); Lymphocytes Absolute Auto 900 /uL (1100-4500); Lymphocytes Percent Auto 10.9 % (25-40); Mean Corpuscular HGB Conc 34.2 % (30-36); Mean Corpuscular Hemoglobin 30.5 PG (26-34); Monocytes Absolute Auto 500 /uL (0-900); Neutrophils Absolute Auto 6600 /uL (1500-7000); Neutrophils Percent Auto 81.6 % (50-75); Platelet Count 279 X10^3/uL (150-400); Red Blood Cell Count 5.63 X10^6/uL (4.5-5.9); Red Cell Distribution Width 14.3 % (11.6-14.8); White Blood Cell Count 8.1 X10^3/uL (4.5-11.0)
[2022-06-26] MEDS: SODIUM CHLORIDE 0.9% 1,000 ML 1000 ML IV (20:36)
[2022-06-26] MEDS: ONDANSETRON 4 MG/2 ML INJ IV (20:36)
[2022-06-26] MEDS: PANTOPRAZOLE 40 MG VIAL IV (20:36)
[2022-06-26 20:40] LABS: Prothrombin Time 11.5 SECONDS (10.1-12.7)
[2022-06-26 20:46] LABS: Lactate (Lactic Acid) 1.2 mmol/L (0.7-2.1)
[2022-06-26 20:48] LABS: Alanine Aminotransferase 29 IU/L (<50); Albumin Globulin Ratio 1.4 (1.0-2.8); Alkaline Phosphatase 93 U/L (38-126); Aspartate Aminotransferase 29 IU/L (17-59); BUN Creatinine Ratio 15.1 (6-22); Bilirubin Total 2.2 mg/dL (0.2-1.3); Blood Urea Nitrogen 13 mg/dL (9-20); C-Reactive Protein Quant 0.5 mg/dL (<1.0); Carbon Dioxide 21 mmol/L (22-32); Chloride 104 mmol/L (98-107); Creatine Kinase 71 U/L (55-170); Estimated Glomerular Filt Rate > 60 mL/min (>60); Globulin 3.7 g/dL (1.7-4.1); Glucose 110 mg/dL (80-110); HEMOLYSIS < 15 (0-50); Lipase 60 U/L (23-300); Magnesium 2.1 mg/dL (1.6-2.3); Potassium 4.3 mmol/L (3.4-5.1); Sodium 139 mmol/L (137-145); Total Protein 8.7 g/dL (6.3-8.2)
[2022-06-26 20:57] LABS: NT-proBNP (BNP-Adult 18+) 25 pg/mL (<125); Troponin I < 0.012 ng/mL (0.01-0.034)
--- NOTE | 2022-06-26 21:00 | DI.CT.S_ITS ---
PROCEDURE: CT ABDOMEN PELVIS W CON INDICATIONS: severe abdominal pain, distension, vomiting TECHNIQUE: After the administration of IV contrast, axial sections were acquired from the lung bases to the pubic symphysis. Coronal and sagittal reformats were performed. For radiation dose reduction, the following was used: automated exposure control, adjustment of mA and/or kV according to patient size. COMPARISON: [facility], CT, CT ABDOMEN PELVIS W CON, 08/24/2021, 18:06. FINDINGS: Image quality: There is extensive metallic streak artifact secondary to patient's spinal fixation hardware. Lung bases: There is mild dependent atelectasis bilaterally. Heart: Heart is normal in size. ABDOMEN: Liver: No mass lesion. Gallbladder: Within normal limits without calcified gallstones. Biliary ducts: No biliary ductal dilatation. Pancreas: There is moderate fatty atrophy of the pancreas. No pancreatic duct dilatation or definite pancreatic mass identified. Spleen: Normal in size. Adrenal Glands: No adrenal nodules. Kidneys and Ureters: No hydronephrosis. There is a left renal cortical cyst within the inferior pole. Stomach and Bowel: Stomach, small bowel loops, and colon are normal in caliber and wall thickness. The appendix is normal in appearance. There is colonic diverticulosis without acute diverticulitis. Peritoneum: No abnormal intraperitoneal fluid. No free air. Ventral Wall: No hernia. Abdominal Nodes: No retroperitoneal or mesenteric adenopathy by size criteria. Vessels: Aorta and inferior vena cava are normal in size. PELVIS: Pelvic Organs: There is enlargement of the seminal vesicles bilaterally with an oval slightly hypoattenuating nodule on the left measuring up to 0.7 cm. Bladder: The urinary bladder is lobulated in contour with irregular margins and perivesicular fat stranding suggestive of a cystitis. Pelvic Nodes: No enlarged lymph nodes. Miscellaneous: No inguinal hernias are seen. Bones: There are extensive postsurgical changes redemonstrated within the thoracic and lumbar spine status post multilevel posterior fixation with intervertebral spacers at L4-5 and L5-S1 as well as anterior fixation at L5-S1. Bilateral fixation screws are also demonstrated traversing the sacroiliac joints. Visualized osseous structures demonstrate no suspicious focal lesions. IMPRESSION: 1. No evidence of bowel obstruction. 2. Lobulated contour of the urinary bladder with irregularity of the bladder wall and mild associated fat stranding. The findings are nonspecific but suggestive of a cystitis. Recommend correlation with urinalysis. 3. No evidence of appendicitis. Dictated by: Fredo Cohen M.D. on 06/26/2022 at 21:43 Approved by: Fredo Cohen M.D. on 06/26/2022 at 21:50
[2022-06-26 21:31] VITALS: PULSE 91; O2SAT 97
[2022-06-26 21:33] VITALS: BP 164/98; PULSE 91; O2SAT 97
--- NOTE | 2022-06-26 21:46 | ED_ITS ---
HPI - Abdominal Pain General Chief Complaint: Abdominal Pain Stated Complaint: abd pain, not able to eat Time Seen by Provider: 06/26/22 20:16 Source: patient Mode of arrival: Ambulatory History of Present Illness HPI narrative: 62-year-old male nonsmoker with history of hypertension presents with significant other and a chief complaint of generalized abdominal discomfort, bloating and diarrhea that has been present for well over a month. He states that it has not been worsening but he is ?tired of it? and wanted to be evaluated. He states the pain seems to come and go with of a mind of its own it seems to wander across his abdomen, he does frequently have loose stools and states that he briefly does have some improvement with the discomfort after loose stool. He had been seen a few weeks ago and had a stool culture which dem onstrated no C diff. he has poor appetite, stating that maybe eating makes his symptoms worse but he is unsure. He is frequently nauseated but denies much in the way of vomiting. He denies any change in medications or diet he is had no travel, exposure to bad food or ill persons. He is not dizzy nor weak or lightheaded. He denies chest pain or shortness of breath. He is had no fever or chills. He does state that for some time, least the past few days he is had some discomfort on his tongue and a whitish film and is concerned that perhaps he has another case of thrush Related Data Home Medications Medication Instructions Recorded Confirmed acetaminophen 300 mg-codeine 30 mg 1 tab PO Q4-6H PRN pain 03/12/19 tablet amlodipine 5 mg tablet 5 mg PO DAILY 03/12/19 03/12/19 amoxicillin 875 mg-potassium 1 tab PO BID 03/12/19 03/12/19 clavulanate 125 mg tablet atenolol 50 mg tablet 100 mg PO DAILY 03/12/19 03/12/19 ciprofloxacin HCl 500 mg tablet 500 mg PO BID 03/12/19 03/12/19 metronidazole 500 mg tablet 500 mg PO TID 03/12/19 03/12/19 ondansetron 4 mg disintegrating 4 mg PO Q4-6H PRN Nausea 03/12/19 03/12/19 tablet vancomycin 125 mg capsule 125 mg PO QID 03/12/19 03/12/19 Previous Rx's Medication Instructions Recorded ondansetron 4 mg disintegrating 4 mg PO Q8H #10 tabs 03/18/20 tablet ondansetron 4 mg disintegrating 4 mg PO Q6H PRN nausea and 05/25/20 tablet vomiting #14 tabs amlodipine 5 mg tablet 5 mg PO DAILY #20 tabs 11/29/20 metoclopramide HCl 10 mg tablet 10 mg PO Q6H PRN nausea and 04/16/21 (Reglan) vomiting #20 tabs levofloxacin 750 mg tablet 750 mg PO DAILY #7 tabs 08/24/21 amoxicillin 875 mg-potassium 1 tab PO Q12H #20 tabs 09/04/21 clavulanate 125 mg tablet hyoscyamine sulfate 0.125 mg tablet 0.125 mg PO BID-QID PRN dyspepsia 06/26/22 #20 tabs nystatin 100,000 unit/mL oral 400,000 unit (4 mL) buccal Q6H 7 06/26/22 suspension days #473 mL ondansetron 4 mg disintegrating 4 mg PO TID-QID PRN nausea and 06/26/22 tablet vomiting #10 tabs Allergies Allergy/AdvReac Type Severity Reaction Status Date / Time barium iodide Allergy Severe Gastrointestinal Verified 09/04/21 21:08 Upset methadone Allergy Severe Blurry Verified 09/04/21 21:08 Vision Sulfa (Sulfonamide Allergy Severe Rash Verified 09/04/21 21:08 Antibiotics) Review of Systems Review of Systems Narrative: GENERAL: Denies chills, fatigue, malaise, fever, sweats. HEENT: See HPI RESPIRATORY: Denies dyspnea, cough, wheezing, hemoptysis, sputum. CARDIOVASCULAR: Denies chest pain, palpitations, orthopnea, edema, GASTROINTESTINAL: See HPI : Denies dysuria, frequency, incontinence, hematuria, urinary retention. MUSCULOSKELETAL: denies weakness, joint pain, or bony pain SKIN: Denies rash, skin lesions, or other NEUROLOGIC: Denies weakness, headache, numbness, change in speech, confusion, seizures, incoordination. PSYCHIATRIC: No concerning psychosocial issues. 12 point review of systems is negative except for those stated above Patient History Medical History Clostridium difficile infection Fibromyalgia Social History Smoking Status: Never smoker Smoking Status: Never smoker alcohol intake frequency: 0-2 drinks per day Substance Use Type: marijuana Exam Narrative Exam Narrative: GENERAL: [62] year old patient appears stated age. Well-developed patient, in mild distress. HEAD: Atraumatic. Normocephalic. EYES: Pupils equal round and reactive. Extraocular motions intact. No scleral icterus. No injection or drainage. ENT: Nose without bleeding, purulent drainage. Throat without erythema, tonsillar hypertrophy or exudate. Airway patent. Tongue without edema, thin white film centrally located, can be scraped off with tongue depressor NECK: Trachea midline. Non tender CARDIOVASCULAR: Regular rate and rhythm without murmurs, gallops, or rubs. RESPIRATORY: Clear to auscultation. Breath sounds equal bilaterally. No wheezes, rales, or rhonchi. GASTROINTESTINAL: Abdomen soft, minimal distention and mild generalized tenderness, bowel sounds present in all 4 quadrants, wraps slightly increased EXTREMITIES: No edema or joint tenderness. BACK: Nontender without deformity or crepitance. No flank tenderness. NEURO: AOx3. SKIN: No rash or erythema of visible areas Initial Vital Signs Initial Vital Signs: Vital Signs Temperature 98.2 F 06/26/22 20:10 Pulse Rate 106 H 06/26/22 20:10 Respiratory Rate 18 06/26/22 20:10 Blood Pressure 183/104 H 06/26/22 20:10 Pulse Oximetry 97 06/26/22 20:10 Oxygen Delivery Method 06/26/22 20:10 Course Orders Ordered: ED Orders 06/26/22 20:18 XR acute abdomen series Stat 06/26/22 20:20 C-Reactive Protein Quant Stat Complete Blood Count AUTO DIFF Stat Comprehensive Metabolic Panel Stat Lactate (Lactic Acid) Stat Lipase Stat Magnesium Stat NT-proBNP (BNP-Adult 18+) Stat Prothrombin Time INR Stat Troponin & CK Cardiac Panel Stat 06/26/22 21:00 CT abdomen pelvis w con Stat 06/26/22 21:30 Ictotest Urine Stat Urinalysis and Microscopic Stat Discontinued Medications Sodium Chloride (Normal Saline 0.9%) 1,000 mls @ 1,000 mls/hr IV BOLUS ONE Stop: 06/26/22 21:15 Last Infusion: 06/26/22 22:02 Dose: 0 mls/hr Documented By: Admin: 06/26/22 20:36 Dose: 1,000 mls/hr Documented By: ELICIA Ondansetron HCl (Ondansetron 4 Mg/2 Ml Inj) 4 mg IV NOW ONE Stop: 06/26/22 20:17 Last Admin: 06/26/22 20:36 Dose: 4 mg Documented By: ELICIA Pantoprazole Sodium (Pantoprazole 40 Mg Vial) 40 mg IV NOW ONE Stop: 06/26/22 20:17 Last Admin: 06/26/22 20:36 Dose: 40 mg Documented By: ELICIA Reevaluation(s) Reevaluation #1: Improved symptoms with above-stated therapies Vital Signs Vital signs: Vital Signs - 8 hr 06/26/22 20:10 06/26/22 21:31 06/26/22 21:33 Temperature 98.2 F Pulse Rate 106 H 91 H Respiratory Rate 18 Blood Pressure 183/104 H 164/98 H Pulse Oximetry 97 97 Oxygen Delivery Method Room Air 06/26/22 21:33 06/26/22 22:00 06/26/22 22:00 Temperature Pulse Rate 91 H 86 Respiratory Rate Blood Pressure 139/96 H Pulse Oximetry 97 96 Oxygen Delivery Method Room Air Room Air MDM - Abdominal Pain Lab Data 06/26/22 20:20 06/26/22 20:20 Labs: Lab Results 06/26/22 06/26/22 06/26/22 Range/Units 20:20 20:20 20:20 WBC 8.1 (4.5-11.0) X10^3/uL RBC 5.63 (4.5-5.9) X10^6/uL Hgb 17.2 (13.5-17.5) g/dL Hct 50.1 (41-53) % MCV 89.0 (80-100) fL MCH 30.5 (26-34) PG MCHC 34.2 (30-36) % RDW 14.3 (11.6-14.8) % Plt Count 279 (150-400) X10^3/uL Neut % (Auto) 81.6 H (50-75) % Lymph % (Auto) 10.9 L (25-40) % [place] % (Auto) 6.0 (3-14) % Eos % (Auto) 1.0 L (2-4) % Baso % (Auto) 0.5 (0-2) % Neut # (Auto) 6600 (6075-6936) /uL Lymph # (Auto) 900 L (2583-6636) /uL [place] # (Auto) 500 (0-900) /uL Eos # (Auto) 100 (0-450) /uL Baso # (Auto) 0 (0-100) /uL PT 11.5 (10.1-12.7) SECONDS INR 1.0 (0.9-1.3) Sodium 139 (137-145) mmol/L Potassium 4.3 (3.4-5.1) mmol/L Chloride 104 (98-107) mmol/L Carbon Dioxide 21 L (22-32) mmol/L BUN 13 (9-20) mg/dL Creatinine 0.86 (0.66-1.25) mg/dL Estimated GFR > 60 (>60) mL/min BUN/Creatinine Ratio 15.1 (6-22) Glucose 110 (80-110) mg/dL Lactate (0.7-2.1) mmol/L Calcium 10.0 (8.4-10.2) mg/dL Magnesium 2.1 (1.6-2.3) mg/dL Total Bilirubin 2.2 H (0.2-1.3) mg/dL AST 29 (17-59) IU/L ALT 29 (<50) IU/L Alkaline Phosphatase 93 (38-126) U/L Total Creatine Kinase 71 (55-170) U/L CK-MB (CK-2) TNP CK-MB (CK-2) Rel Index TNP Troponin I < 0.012 (0.01-0.034) ng/mL C-Reactive Protein 0.5 (<1.0) mg/dL NT-Pro-B Natriuret Pep 25 (<125) pg/mL Total Protein 8.7 H (6.3-8.2) g/dL Albumin 5.0 (3.5-5.0) g/dL Globulin 3.7 (1.7-4.1) g/dL Albumin/Globulin Ratio 1.4 (1.0-2.8) Lipase 60 (23-300) U/L Urine Color Urine Appearance Urine pH (4.5-8.0) Ur Specific [place] (1.000-1.035) Urine Protein (Negative) Urine Glucose (UA) (Negative) g/dL Urine Ketones (NEGATIVE) Urine Occult Blood (Negative) Urine Nitrate (Negative) Urine Bilirubin (NEGATIVE) Ur Bilirubin Confirm (Negative) Urine Urobilinogen (0.2) E.U./dL Ur Leukocyte Esterase (NEGATIVE) Urine RBC (0-5/HPF) Urine WBC (0-5/HPF) Ur Squamous Epith Cells (0-5/HPF) Urine Bacteria (None) Hyaline Casts (None) Urine Mucus (Negative) Ur Culture Indicated? 06/26/22 06/26/22 Range/Units 20:20 21:30 WBC (4.5-11.0) X10^3/uL RBC (4.5-5.9) X10^6/uL Hgb (13.5-17.5) g/dL Hct (41-53) % MCV (80-100) fL MCH (26-34) PG MCHC (30-36) % RDW (11.6-14.8) % Plt Count (150-400) X10^3/uL Neut % (Auto) (50-75) % Lymph % (Auto) (25-40) % [place] % (Auto) (3-14) % Eos % (Auto) (2-4) % Baso % (Auto) (0-2) % Neut # (Auto) (6197-9489) /uL Lymph # (Auto) (3819-1108) /uL [place] # (Auto) (0-900) /uL Eos # (Auto) (0-450) /uL Baso # (Auto) (0-100) /uL PT (10.1-12.7) SECONDS INR (0.9-1.3) Sodium (137-145) mmol/L Potassium (3.4-5.1) mmol/L Chloride (98-107) mmol/L Carbon Dioxide (22-32) mmol/L BUN (9-20) mg/dL Creatinine (0.66-1.25) mg/dL Estimated GFR (>60) mL/min BUN/Creatinine Ratio (6-22) Glucose (80-110) mg/dL Lactate 1.2 (0.7-2.1) mmol/L Calcium (8.4-10.2) mg/dL Magnesium (1.6-2.3) mg/dL Total Bilirubin (0.2-1.3) mg/dL AST (17-59) IU/L ALT (<50) IU/L Alkaline Phosphatase (38-126) U/L Total Creatine Kinase (55-170) U/L CK-MB (CK-2) CK-MB (CK-2) Rel Index Troponin I (0.01-0.034) ng/mL C-Reactive Protein (<1.0) mg/dL NT-Pro-B Natriuret Pep (<125) pg/mL Total Protein (6.3-8.2) g/dL Albumin (3.5-5.0) g/dL Globulin (1.7-4.1) g/dL Albumin/Globulin Ratio (1.0-2.8) Lipase (23-300) U/L Urine Color Dark yellow Urine Appearance Slightly cloudy Urine pH 5.5 (4.5-8.0) Ur Specific [place] 1.025 (1.000-1.035) Urine Protein 1+ H (Negative) Urine Glucose (UA) Negative (Negative) g/dL Urine Ketones Trace H (NEGATIVE) Urine Occult Blood Negative (Negative) Urine Nitrate Negative (Negative) Urine Bilirubin 1+ H (NEGATIVE) Ur Bilirubin Confirm Positive H (Negative) Urine Urobilinogen 0.2 (0.2) E.U./dL Ur Leukocyte Esterase Negative (NEGATIVE) Urine RBC 0-1/hpf (0-5/HPF) Urine WBC 0-1/hpf (0-5/HPF) Ur Squamous Epith Cells 0-1 /hpf (0-5/HPF) Urine Bacteria Few (2-10) H (None) Hyaline Casts 0-1/lpf (None) Urine Mucus 1+ H (Negative) Ur Culture Indicated? Cult not indicated Imaging Data CT scan - abdomen/pelvis: Radiologist's Impression: [address] [address] [address] Scan Report Signed Patient: Huang Leahy MR#: [id number] : 1960 Acct:[id number] Age/Sex: 62 / M Date of Service: 06/26/22 Loc: ED Accession Number: [id number] ?? Procedure: CT abdomen pelvis w con Ordering Provider: Rodney Bateman D.O. PROCEDURE:? CT ABDOMEN PELVIS W CON ? INDICATIONS:? severe abdominal pain, distension, vomiting ? TECHNIQUE:? After the administration of IV contrast, axial sections were acquired from the lung bases to the pubic symphysis.? Coronal and sagittal reformats were performed.? For radiation dose reduction, the following was used:? automated exposure control, adjustment of mA and/or kV according to patient size. ? COMPARISON:? [facility], CT, CT ABDOMEN PELVIS W CON, 08/24/2021, 18:06. ? FINDINGS:? Image quality:? There is extensive metallic streak artifact secondary to patient's spinal fixation hardware. ? Lung bases:? There is mild dependent atelectasis bilaterally.? ? Heart:? Heart is normal in size. ? ? ABDOMEN: Liver:? No mass lesion. Gallbladder:? Within normal limits without calcified gallstones.? ? Biliary ducts:? No biliary ductal dilatation.? ? Pancreas:? There is moderate fatty atrophy of the pancreas.? No pancreatic duct dilatation or definite pancreatic mass identified.? ? Spleen:? Normal in size.? ? Adrenal Glands:? No adrenal nodules.? ? Kidneys and Ureters:? No hydronephrosis.? There is a left renal cortical cyst within the inferior pole. ? ? Stomach and Bowel:? Stomach, small bowel loops, and colon are normal in caliber and wall thickness.? The appendix is normal in appearance.? There is colonic diverticulosis without acute diverticulitis. Peritoneum:? No abnormal intraperitoneal fluid.? No free air.? ? Ventral Wall: ? No hernia.? Abdominal Nodes:? No retroperitoneal or mesenteric adenopathy by size criteria.? Vessels:? Aorta and inferior vena cava are normal in size.? ? PELVIS: Pelvic Organs:? There is enlargement of the seminal vesicles bilaterally with an oval slightly hypoattenuating nodule on the left measuring up to 0.7 cm. Bladder:? The urinary bladder is lobulated in contour with irregular margins and perivesicular fat stranding suggestive of a cystitis.? Pelvic Nodes: No enlarged lymph nodes.? Miscellaneous: No inguinal hernias are seen. ? ? ? Bones:? There are extensive postsurgical changes redemonstrated within the thoracic and lumbar spine status post multilevel posterior fixation with intervertebral spa cers at L4-5 and L5-S1 as well as anterior fixation at L5-S1.? Bilateral fixation screws are also demonstrated traversing the sacroiliac joints.? Visualized osseous structures demonstrate no suspicious focal lesions. ? IMPRESSION:? ? 1.? No evidence of bowel obstruction. ? 2. Lobulated contour of the urinary bladder with irregularity of the bladder wall and mild associated fat stranding.? The findings are nonspecific but suggestive of a cystitis.? Recommend correlation with urinalysis. ? 3. No evidence of appendicitis. ? Dictated by: Fredo Cohen M.D. on 06/26/2022 at 21:43 ? ? Approved by: Fredo Cohen M.D. on 06/26/2022 at 21:50 ? MDM Narrative Medical decision making narrative: CC: 62-year-old male with at least a month bloating, generalized abdominal discomfort and diarrhea Complicating co-morbidities: Age, history of C diff, hypertension Data collected from: Patient Medical records reviewed: including prior ED notes in our EMR Differential considered, but not limited to: bowel obstruction, colitis, UTI, kidney stone, vs. other Exam documented above, pertinent findings include: bloated abdomen with generalized tenderness, increased bowel sounds Lab Test results independently reviewed as above. Pertinent findings: No leukocytosis or left shift, H&H stable, electrolytes and renal function within normal, no evidence UTI Imaging studies independently reviewed: no significant findings on CT. Some abnormal architecture to urinary bladder, no urine complaints, no obvious UTI Treatments: fluids, protonix, zofran Re-evaluations: Significant improvement after above-stated therapies. D iscomfort greatly improved, patient tolerating orals Discussion: Patient with over a month of abdominal distention, discomfort, diarrhea. Patient has reassuring response to therapies, labs and imaging without significant findings that would require specific or immediate intervention. Patient would likely benefit from gastro referral and states that he will discuss this with his primary care provider. We discussed clear liquids for 24-48 hours prescription sent to his pharmacy and questions answered to his apparent satisfaction Disposition: see below, along with detailed discharge instructions that have been reviewed with patient as well as indications for ED re-evaluation and additional outpatient follow up Discharge Plan Departure Patient Disposition: Home Clinical Impression: Abdominal bloating, Diarrhea, Candidiasis of mouth Instructions: DI for Thrush, DI for Abdominal Pain-Adult Activity Restrictions/Additional Instructions: *You have been diagnosed with [abdominal pain, oral thrush] * As we discussed your history and physical exam as well as labs and imaging are very reassuring. There is no evidence of any severe diagnoses that would require a specific or immediate intervention. *What to do: *Please continue to take your regular medications as directed. [x ] New medication prescriptions sent to your pharmacy: [[facility] in [place] ] *Please follow up with your primary care provider in 2-3 days, call for an appointment. Let them know you were seen in the Emergency Department and that we ask that you be seen in follow up. We will electronically transmit a record of today's note if your PCP is in our system *Please consider a clear liquid diet for the next 24-48 hours and then slowly advance to regular as tolerated. Also, try to avoid alcohol, nicotine, caffeine, spicy, acidic or fatty foods as this may worsen your symptoms *If you do not have a primary care provider please contact the [facility] Resource line at [phone]. They will ask some questions about your medical history and help get you set up with a doctor in the community. *Return to Emergency Department if you should have any new, worsening or con cerning symptoms, such as [fever greater than 101 F, shaking chills, worsening pain, persistent vomiting or other bothersome symptoms] Prescriptions: New hyoscyamine sulfate 0.125 mg tablet 0.125 mg PO BID-QID PRN (Reason: dyspepsia) Qty: 20 0RF ondansetron 4 mg tablet,disintegrating 4 mg PO TID-QID PRN (Reason: nausea and vomiting) Qty: 10 0RF nystatin 100,000 unit/mL suspension 400,000 unit buccal Q6H 7 Days Qty: 473 0RF Rx Instructions: administer 1/2 of dose in each side of the mouth No Action metronidazole 500 mg tablet 500 mg PO TID acetaminophen-codeine 300-30 mg tablet 1 tab PO Q4-6H PRN (Reason: pain) amlodipine 5 mg tablet 5 mg PO DAILY ciprofloxacin HCl 500 mg tablet 500 mg PO BID vancomycin 125 mg capsule 125 mg PO QID ondansetron 4 mg tablet,disintegrating 4 mg PO Q4-6H PRN (Reason: Nausea) atenolol 50 mg tablet 100 mg PO DAILY amoxicillin-pot clavulanate 875-125 mg tablet 1 tab PO BID ondansetron 4 mg tablet,disintegrating 4 mg PO Q8H Qty: 10 0RF ondansetron 4 mg tablet,disintegrating 4 mg PO Q6H PRN (Reason: nausea and vomiting) Qty: 14 0RF amlodipine 5 mg tablet 5 mg PO DAILY Qty: 20 0RF metoclopramide HCl [Reglan] 10 mg tablet 10 mg PO Q6H PRN (Reason: nausea and vomiting) Qty: 20 0RF amoxicillin-pot clavulanate 875-125 mg tablet 1 tab PO Q12H Qty: 20 0RF levofloxacin 750 mg tablet 750 mg PO DAILY Qty: 7 0RF Referrals: Ирина Weaver MD [Primary Care Provider] - Stand Alone Forms: Patient Portal/API
[2022-06-26 22:00] VITALS: BP 139/96; PULSE 86; O2SAT 96
[2022-06-26 22:08] LABS: Bilirubin Urine UA 1+ (NEGATIVE); Glucose Urine UA NEGATIVE (Negative); Ketones Urine UA TRACE (NEGATIVE); Leukocyte Esterase Urine UA NEGATIVE (NEGATIVE); Nitrite Urine UA NEGATIVE (Negative); Occult Blood Urine UA NEGATIVE (Negative); Protein Urine UA 1+ (Negative); Specific Gravity Urine UA 1.025 (1.000-1.035); Urobilinogen Urine UA 0.2 E.U./dL (0.2); pH Urine UA 5.5 (4.5-8.0)
[2022-06-26 22:17] LABS: Appearance Urine UA Slightly Cloudy; Color Urine UA Dark Yellow
[2022-06-26 22:18] LABS: Ictotest Urine Positive (Negative); RBC Urine 0-1/HPF (0-5/HPF); Squamous Epithelial Cell Urine 0-1 /HPF (0-5/HPF); WBC Urine 0-1/HPF (0-5/HPF)
[2022-06-26 22:19] LABS: Bacteria Urine Few (2-10); Culture Indicated Urine Cult Not Indicated; Hyaline Casts Urine 0-1/LPF; Mucus Urine 1+ (Negative)
== END 2022-06-26 23:20 | disposition home or self-care (01) ==
PROVIDERS: Emergency Provider Emergency Medicine; PCP Family Medicine
DX: R10.84 Generalized abdominal pain (principal); R14.0 Abdominal distension (gaseous); R19.7 Diarrhea, unspecified; B37.0 Candidal stomatitis
CPT/HCPCS: 36415; 74022; 74177; 80053; 81001; 82550; 83605; 83690; 83735; 83880; 84484; 85025; 85610; 86140; 96361; 96374; 96375; 99284; C9113; J2405; Q9967

== ENCOUNTER 2022-08-17 19:55 | Emergency (ER) | payer OTHER, MEDICAID, SELFPAY ==
[2022-08-17 20:01] VITALS: BP 195/112; PULSE 119; RESP 24; TEMP 36.2; O2SAT 98; BMI 29.0
[2022-08-17 20:58] LABS: Add Manual Diff / Slide Review NO; Basophils Absolute Auto 0 /uL (0-100); Basophils Percent Auto 0.2 % (0-2); Eosinophils Absolute Auto 0 /uL (0-450); Hematocrit 47.9 % (41-53); Hemoglobin 16.6 g/dL (13.5-17.5); Lymphocytes Absolute Auto 400 /uL (1100-4500); Lymphocytes Percent Auto 3.5 % (25-40); Mean Corpuscular HGB Conc 34.6 % (30-36); Mean Corpuscular Hemoglobin 30.4 PG (26-34); Mean Corpuscular Volume 87.9 fL (80-100); Monocytes Absolute Auto 200 /uL (0-900); Monocytes Percent Auto 1.7 % (3-14); Neutrophils Absolute Auto 10800 /uL (1500-7000); Neutrophils Percent Auto 94.6 % (50-75); Platelet Count 325 X10^3/uL (150-400); Red Blood Cell Count 5.45 X10^6/uL (4.5-5.9); White Blood Cell Count 11.5 X10^3/uL (4.5-11.0)
[2022-08-17 21:10] LABS: Appearance Urine UA CLEAR; Bilirubin Urine UA 1+ (NEGATIVE); Color Urine UA YELLOW; Glucose Urine UA NEGATIVE (Negative); Ketones Urine UA 2+ (NEGATIVE); Leukocyte Esterase Urine UA NEGATIVE (NEGATIVE); Nitrite Urine UA NEGATIVE (Negative); Occult Blood Urine UA TRACE-INTACT (Negative); Protein Urine UA 2+ (Negative); Specific Gravity Urine UA >=1.030 (1.000-1.035); Urobilinogen Urine UA 0.2 E.U./dL (0.2)
[2022-08-17 21:14] LABS: Ictotest Urine Negative (Negative)
[2022-08-17] MEDS: ONDANSETRON 4 MG/2 ML INJ IV (21:14)
[2022-08-17 21:17] LABS: Albumin 4.8 g/dL (3.5-5.0); Albumin Globulin Ratio 1.4 (1.0-2.8); Alkaline Phosphatase 82 U/L (38-126); Aspartate Aminotransferase 31 IU/L (17-59); BUN Creatinine Ratio 11.9 (6-22); Bilirubin Total 1.8 mg/dL (0.2-1.3); Blood Urea Nitrogen 10 mg/dL (9-20); Calcium 9.6 mg/dL (8.4-10.2); Carbon Dioxide 23 mmol/L (22-32); Chloride 101 mmol/L (98-107); Estimated Glomerular Filt Rate > 60 mL/min (>60); Globulin 3.4 g/dL (1.7-4.1); Glucose 159 mg/dL (80-110); HEMOLYSIS < 15 (0-50); Lipase 41 U/L (23-300); Sodium 140 mmol/L (137-145); Total Protein 8.2 g/dL (6.3-8.2)
[2022-08-17 21:23] LABS: Alanine Aminotransferase 46 IU/L (<50)
[2022-08-17 21:26] LABS: RBC Urine 1-5/HPF (0-5/HPF); WBC Urine 1-5/HPF (0-5/HPF)
[2022-08-17 21:27] LABS: Bacteria Urine Occasional (0-1); Hyaline Casts Urine 1-5/LPF; Mucus Urine 1+ (Negative); Squamous Epithelial Cell Urine 0-1 /HPF (0-5/HPF)
[2022-08-17 21:28] LABS: Culture Indicated Urine Cult Not Indicated
--- NOTE | 2022-08-17 21:33 | ED_ITS ---
HPI - Abdominal Pain General Chief Complaint: Abdominal Pain Stated Complaint: Nausea, Vomiting, Stomach pain Time Seen by Provider: 08/17/22 20:00 Source: patient Mode of arrival: Ambulatory History of Present Illness HPI narrative: 62-year-old male nonsmoker with history of hypertension presents with significant other and a chief complaint of generalized abdominal discomfort, bloating and diarrhea that has been present for well over a few months and had been seen by myself under similar circumstances about 1 month ago with reassurin g evaluation, labs and imaging. He denies any dietary change or new medications. He states that he would this episodic abdominal pain seems to come and go without significant obvious provocation or palliation other than he thinks his symptoms seemed to improve after he has an episode of loose stool which has been mucousy as of late. He denies recent antibiotics, international travel, exposure to bad food. He does state that his symptoms remind him of when he previously had C diff. He is had no fever or chills and has been slightly nauseated but denies any vomiting. He is had decreased appetite and admittedly has been eating and drinking less because he is worried that it might worsen his symptoms. He occasionally feels a bit lightheaded upon standing. He denies any fever or chills. He is not currently having pain Related Data Home Medications Medication Instructions Recorded Confirmed acetaminophen 300 mg-codeine 30 mg 1 tab PO Q4-6H PRN pain 03/12/19 tablet amlodipine 5 mg tablet 5 mg PO DAILY 03/12/19 03/12/19 amoxicillin 875 mg-potassium 1 tab PO BID 03/12/19 03/12/19 clavulanate 125 mg tablet atenolol 50 mg tablet 100 mg PO DAILY 03/12/19 03/12/19 ciprofloxacin HCl 500 mg tablet 500 mg PO BID 03/12/19 03/12/19 metronidazole 500 mg tablet 500 mg PO TID 03/12/19 03/12/19 ondansetron 4 mg disintegrating 4 mg PO Q4-6H PRN Nausea 03/12/19 03/12/19 tablet vancomycin 125 mg capsule 125 mg PO QID 03/12/19 03/12/19 Previous Rx's Medication Instructions Recorded ondansetron 4 mg disintegrating 4 mg PO Q8H #10 tabs 03/18/20 tablet ondansetron 4 mg disintegrating 4 mg PO Q6H PRN nausea and 05/25/20 tablet vomiting #14 tabs amlodipine 5 mg tablet 5 mg PO DAILY #20 tabs 11/29/20 metoclopramide HCl 10 mg tablet 10 mg PO Q6H PRN nausea and 04/16/21 (Reglan) vomiting #20 tabs levofloxacin 750 mg tablet 750 mg PO DAILY #7 tabs 08/24/21 amoxicillin 875 mg-potassium 1 tab PO Q12H #20 tabs 09/04/21 clavulanate 125 mg tablet hyoscyamine sulfate 0.125 mg tablet 0.125 mg PO BID-QID PRN dyspepsia 06/26/22 #20 tabs ondansetron 4 mg disintegrating 4 mg PO TID-QID PRN nausea and 06/26/22 tablet vomiting #10 tabs Allergies Allergy/AdvReac Type Severity Reaction Status Date / Time barium iodide Allergy Severe Gastrointestinal Verified 09/04/21 21:08 Upset methadone Allergy Severe Blurry Verified 09/04/21 21:08 Vision Sulfa (Sulfonamide Allergy Severe Rash Verified 09/04/21 21:08 Antibiotics) Review of Systems Review of Systems Narrative: GENERAL: See HPI HEENT: Denies sinus pain, ear pain, sore throat, difficulty swallowing, dizziness. RESPIRATORY: Denies dyspnea, cough, wheezing, hemoptysis, sputum. CARDIOVASCULAR: Denies chest pain, palpitations, orthopnea, edema, GASTROINTESTINAL: See HPI : Denies dysuria, frequency, incontinence, hematuria, urinary retention. MUSCULOSKELETAL: denies weakness, joint pain, or bony pain SKIN: Denies rash, skin lesions, or other NEUROLOGIC: Denies weakness, headache, numbness, change in speech, confusion, seizures, incoordination. PSYCHIATRIC: No concerning psychosocial issues. 12 point review of systems is negative except for those stated above Patient History Medical History Clostridium difficile infection Fibromyalgia Social History Smoking Status: Never smoker Smoking Status: Never smoker alcohol intake frequency: 0-2 drinks per day Substance Use Type: marijuana Exam Narrative Exam Narrative: GENERAL: [62] year old patient appears stated age. Well-developed patient, in mild distress. HEAD: Atraumatic. Normocephalic. EYES: Pupils equal round and reactive. Extraocular motions intact. No scleral icterus. No injection or drainage. ENT: Slightly dry mucous membranes Nose without bleeding, purulent drainage. Throat without erythema, tonsillar hypertrophy or exudate. Airway patent. NECK: Trachea midline. Non tender CARDIOVASCULAR: Regular rate and rhythm without murmurs, gallops, or rubs. RESPIRATORY: Clear to auscultation. Breath sounds equal bilaterally. No wheezes, rales, or rhonchi. GASTROINTESTINAL: Abdomen soft, non-tender, nondistended. Bowel sounds present in all 4 quadrants and likely a bit increased EXTREMITIES: No edema or joint tenderness. BACK: Nontender without deformity or crepitance. No flank tenderness. NEURO: AOx3. SKIN: No rash or erythema of visible areas Initial Vital Signs Initial Vital Signs: Vital Signs Temperature 97.1 F L 08/17/22 20:01 Pulse Rate 119 H 08/17/22 20:01 Respiratory Rate 24 08/17/22 20:01 Blood Pressure 195/112 H 08/17/22 20:01 Pulse Oximetry 98 08/17/22 20:01 Oxygen Delivery Method Room Air 08/17/22 20:01 Course Orders Ordered: Discontinued Medications Sodium Chloride (Normal Saline 0.9%) 1,000 mls @ 1,000 mls/hr IV BOLUS ONE Stop: 08/17/22 22:34 Last Infusion: 08/17/22 23:05 Dose: 0 mls/hr Documented By: Admin: 08/17/22 21:51 Dose: 1,000 mls/hr Documented By: MANNY Ondansetron HCl (Ondansetron 4 Mg Odt) 4 mg PO NOW PRN PRN Reason: Nausea And Vomiting Ondansetron HCl (Ondansetron 4 Mg/2 Ml Inj) 4 mg IV NOW PRN PRN Reason: Nausea And Vomiting Last Admin: 08/17/22 21:14 Dose: 4 mg Documented By: MANNY Pantoprazole Sodium (Pantoprazole 40 Mg Vial) 40 mg IV NOW ONE Stop: 08/17/22 21:36 Last Admin: 08/17/22 21:52 Dose: 40 mg Documented By: MANNY Reevaluation(s) Reevaluation #1: Patient is feeling better after above-stated therapies, no pain and tolerating orals Vital Signs Vital signs: Vital Signs - 8 hr 08/17/22 20:01 Temperature 97.1 F L Pulse Rate 119 H Respiratory Rate 24 Blood Pressure 195/112 H Pulse Oximetry 98 Oxygen Delivery Method Room Air MDM - Abdominal Pain Lab Data 08/17/22 20:45 08/17/22 20:45 Labs: Lab Results 08/17/22 08/17/22 08/17/22 Range/Units 20:39 20:45 20:45 WBC 11.5 H (4.5-11.0) X10^3/uL RBC 5.45 (4.5-5.9) X10^6/uL Hgb 16.6 (13.5-17.5) g/dL Hct 47.9 (41-53) % MCV 87.9 (80-100) fL MCH 30.4 (26-34) PG MCHC 34.6 (30-36) % RDW 14.0 (11.6-14.8) % Plt Count 325 (150-400) X10^3/uL Neut % (Auto) 94.6 H (50-75) % Lymph % (Auto) 3.5 L (25-40) % [place] % (Auto) 1.7 L (3-14) % Eos % (Auto) 0.0 L (2-4) % Baso % (Auto) 0.2 (0-2) % Neut # (Auto) 66043 H (0417-1551) /uL Lymph # (Auto) 400 L (4463-8799) /uL [place] # (Auto) 200 (0-900) /uL Eos # (Auto) 0 (0-450) /uL Baso # (Auto) 0 (0-100) /uL Sodium 140 (137-145) mmol/L Potassium 4.0 (3.4-5.1) mmol/L Chloride 101 (98-107) mmol/L Carbon Dioxide 23 (22-32) mmol/L BUN 10 (9-20) mg/dL Creatinine 0.84 (0.66-1.25) mg/dL Estimated GFR > 60 (>60) mL/min BUN/Creatinine Ratio 11.9 (6-22) Glucose 159 H (80-110) mg/dL Calcium 9.6 (8.4-10.2) mg/dL Total Bilirubin 1.8 H (0.2-1.3) mg/dL AST 31 (17-59) IU/L ALT 46 (<50) IU/L Alkaline Phosphatase 82 (38-126) U/L Total Protein 8.2 (6.3-8.2) g/dL Albumin 4.8 (3.5-5.0) g/dL Globulin 3.4 (1.7-4.1) g/dL Albumin/Globulin Ratio 1.4 (1.0-2.8) Lipase 41 (23-300) U/L Urine Color Yellow Urine Appearance Clear Urine pH 6.0 (4.5-8.0) Ur Specific [place] >=1.030 H (1.000-1.035) Urine Protein 2+ H (Negative) Urine Glucose (UA) Negative (Negative) g/dL Urine Ketones 2+ H (NEGATIVE) Urine Occult Blood Trace-intact (Negative) Urine Nitrate Negative (Negative) Urine Bilirubin 1+ H (NEGATIVE) Ur Bilirubin Confirm Negative (Negative) Urine Urobilinogen 0.2 (0.2) E.U./dL Ur Leukocyte Esterase Negative (NEGATIVE) Urine RBC 1-5/hpf (0-5/HPF) Urine WBC 1-5/hpf (0-5/HPF) Ur Squamous Epith Cells 0-1 /hpf (0-5/HPF) Urine Bacteria Occasional (0-1) (None) Hyaline Casts 1-5/lpf (None) Urine Mucus 1+ H (Negative) Ur Culture Indicated? Cult not indicated Stl C. cayetanensis PCR (Not Detect) Stool Rotavirus (PCR) (Not Detect) Stool Adenovirus (PCR) (Not Detect) Stool Astrovirus (PCR) (Not Detect) Stool Cryptosporidium PCR (Not Detect) Stl E.coli Shiga Tox PCR (Not Detect) St Sh/Enteroin Ecoli PCR (Not Detect) Stool E coli O157 PCR Stl Enterotoxigenic E PCR (Not Detect) Stool EPEC (PCR) (Not Detect) Stl E. histolytica PCR (Not Detect) Stool Giardia Lamblia PCR (Not Detect) Stool Sapovirus (PCR) (Not Detect) Stl P. shigelloides PCR (Not Detect) St Y.enterocolitica PCR (Not Detect) Stool Vibrio (PCR) (Not Detect) Stl Vibrio cholerae PCR (Not Detect) Stl Enteroaggr Ecoli PCR (Not Detect) Stl Norovirus GI/GII PCR (Not Detect) Campylobacter (PCR) (Not Detect) C. difficile Tox (PCR) (Not Detect) Salmonella (PCR) (Not Detect) 08/17/22 Range/Units 22:09 WBC (4.5-11.0) X10^3/uL RBC (4.5-5.9) X10^6/uL Hgb (13.5-17.5) g/dL Hct (41-53) % MCV (80-100) fL MCH (26-34) PG MCHC (30-36) % RDW (11.6-14.8) % Plt Count (150-400) X10^3/uL Neut % (Auto) (50-75) % Lymph % (Auto) (25-40) % [place] % (Auto) (3-14) % Eos % (Auto) (2-4) % Baso % (Auto) (0-2) % Neut # (Auto) (4489-0691) /uL Lymph # (Auto) (8616-6570) /uL [place] # (Auto) (0-900) /uL Eos # (Auto) (0-450) /uL Baso # (Auto) (0-100) /uL Sodium (137-145) mmol/L Potassium (3.4-5.1) mmol/L Chloride (98-107) mmol/L Carbon Dioxide (22-32) mmol/L BUN (9-20) mg/dL Creatinine (0.66-1.25) mg/dL Estimated GFR (>60) mL/min BUN/Creatinine Ratio (6-22) Glucose (80-110) mg/dL Calcium (8.4-10.2) mg/dL Total Bilirubin (0.2-1.3) mg/dL AST (17-59) IU/L ALT (<50) IU/L Alkaline Phosphatase (38-126) U/L Total Protein (6.3-8.2) g/dL Albumin (3.5-5.0) g/dL Globulin (1.7-4.1) g/dL Albumin/Globulin Ratio (1.0-2.8) Lipase (23-300) U/L Urine Color Urine Appearance Urine pH (4.5-8.0) Ur Specific [place] (1.000-1.035) Urine Protein (Negative) Urine Glucose (UA) (Negative) g/dL Urine Ketones (NEGATIVE) Urine Occult Blood (Negative) Urine Nitrate (Negative) Urine Bilirubin (NEGATIVE) Ur Bilirubin Confirm (Negative) Urine Urobilinogen (0.2) E.U./dL Ur Leukocyte Esterase (NEGATIVE) Urine RBC (0-5/HPF) Urine WBC (0-5/HPF) Ur Squamous Epith Cells (0-5/HPF) Urine Bacteria (None) Hyaline Casts (None) Urine Mucus (Negative) Ur Culture Indicated? Stl C. cayetanensis PCR Not detected (Not Detect) Stool Rotavirus (PCR) Not detected (Not Detect) Stool Adenovirus (PCR) Not detected (Not Detect) Stool Astrovirus (PCR) Not detected (Not Detect) Stool Cryptosporidium PCR Not detected (Not Detect) Stl E.coli Shiga Tox PCR Not detected (Not Detect) St Sh/Enteroin Ecoli PCR Not detected (Not Detect) Stool E coli O157 PCR Not Reportable Stl Enterotoxigenic E PCR Not detected (Not Detect) Stool EPEC (PCR) Not detected (Not Detect) Stl E. histolytica PCR Not detected (Not Detect) Stool Giardia Lamblia PCR Not detected (Not Detect) Stool Sapovirus (PCR) Not detected (Not Detect) Stl P. shigelloides PCR Not detected (Not Detect) St Y.enterocolitica PCR Not detected (Not Detect) Stool Vibrio (PCR) Not detected (Not Detect) Stl Vibrio cholerae PCR Not detected (Not Detect) Stl Enteroaggr Ecoli PCR Not detected (Not Detect) Stl Norovirus GI/GII PCR Not detected (Not Detect) Campylobacter (PCR) Not detected (Not Detect) C. difficile Tox (PCR) Not detected (Not Detect) Salmonella (PCR) Not detected (Not Detect) Point of care testing: Urine Dip Bedside Urine Glucose Negative Bedside Urine Bilirubin - Negative Bedside Urine Ketone +++ 80 Urine Specific [place] 1.030 Bedside Urine Occult Blood +/- Bedside Urine pH 6.0 Bedside Urine Protein +++ 300 Bedside Urine Urobilinogen - Negative Bedside Urine Nitrite - Negative Bedside Urine Leukocytes - Negative Esterase MDM Narrative Medical decision making narrative: CC: 62-year-old male with chronic abdominal cramping and diarrhea Complicating co-morbidities: Age, hypertension, prior C diff Data collected from: Patient Medical records reviewed: Prior notes reviewed in our EMR Differential considered, but not limited to: C diff, other infectious diarrhea, dehydration, colitis versus other Exam documented above, pertinent findings include: Slightly dry mucous membranes, heart rate regular, lungs clear, abdomen is soft, nontender with increased bowel sounds Lab Test results independently reviewed as above. Pertinent findings: GI panel negative, very minimal leukocytosis without bandemia, no signs of anemia, electrolytes, renal function and LFTs within normal Independently reviewed EKG as above Imaging studies independently reviewed: We did discuss possibly performing a CT scan. However, given the patient's lack of symptoms and any significant lab abnormalities we elect to hold off for now as it seems unlikely that it would result in any diagnosis that would change the disposition Treatments: Zofran, fluids, Protonix Re-evaluations: Patient with significant improvement, no longer dizzy or lightheaded, nausea improved, tolerating orals without difficulty, no pain Discussion: Patient returns for evaluation of crampy abdominal pain and loose stools off and on for many months. Not currently having any pain. He has been without fever, denies blood. Has had no recent travel or use of antibiotics though does suggest the symptoms remind him of C diff. His GI panel thankfully has no significant findings, lab work is otherwise unremarkable. As noted above we did discuss the utility of advanced imaging but elect to hold off given his lack of current symptoms or compelling lab abnormalities. He does have an upcoming appointment with GI. We discussed the use of the prescriptions as directed, a clear liquid diet and then slow advancement, follow-up with GI as planned and return for worsening or persistent symptoms. Disposition: see below, along with detailed discharge instructions that have been reviewed with patient as well as indications for ED re-evaluation and additional outpatient follow up Discharge Plan Departure Patient Disposition: Home Clinical Impression: Abdominal pain Instructions: DI for Abdominal Pain-Adult Activity Restrictions/Additional Instructions: *You have been diagnosed with [abdominal pain and diarrhea] * As we discussed your history and physical exam as well as labs and imaging are very reassuring. There is no evidence of any severe diagnoses that would require a specific or immediate intervention. *What to do: *Please continue to take your regular medications as directed. *Please follow up with your primary care provider in 2-3 days, call for an appointment. Let them know you were seen in the Emergency Department and that we ask that you be seen in follow up. We will electronically transmit a record of today's note if your PCP is in our system *Please consider a clear liquid diet for the next 24-48 hours and then slowly advance to regular as tolerated. Also, try to avoid alcohol, nicotine, caffeine, spicy, acidic or fatty foods as this may worsen your symptoms *If you do not have a primary care provider please contact the [facility] Resource line at [phone]. They will ask some questions about your medical history and help get you set up with a doctor in the community. *Return to Emergency Department if you should have any new, worsening or concerning symptoms, such as [fever greater than 101 F, shaking chills, worsening pain, persistent vomiting or other bothersome symptoms] Prescriptions: No Action metronidazole 500 mg tablet 500 mg PO TID acetaminophen-codeine 300-30 mg tablet 1 tab PO Q4-6H PRN (Reason: pain) amlodipine 5 mg tablet 5 mg PO DAILY ciprofloxacin HCl 500 mg tablet 500 mg PO BID vancomycin 125 mg capsule 125 mg PO QID ondansetron 4 mg tablet,disintegrating 4 mg PO Q4-6H PRN (Reason: Nausea) atenolol 50 mg tablet 100 mg PO DAILY amoxicillin-pot clavulanate 875-125 mg tablet 1 tab PO BID ondansetron 4 mg tablet,disintegrating 4 mg PO Q8H Qty: 10 0RF ondansetron 4 mg tablet,disintegrating 4 mg PO Q6H PRN (Reason: nausea and vomiting) Qty: 14 0RF amlodipine 5 mg tablet 5 mg PO DAILY Qty: 20 0RF metoclopramide HCl [Reglan] 10 mg tablet 10 mg PO Q6H PRN (Reason: nausea and vomiting) Qty: 20 0RF amoxicillin-pot clavulanate 875-125 mg tablet 1 tab PO Q12H Qty: 20 0RF hyoscyamine sulfate 0.125 mg tablet 0.125 mg PO BID-QID PRN (Reason: dyspepsia) Qty: 20 0RF ondansetron 4 mg tablet,disintegrating 4 mg PO TID-QID PRN (Reason: nausea and vomiting) Qty: 10 0RF levofloxacin 750 mg tablet 750 mg PO DAILY Qty: 7 0RF Referrals: Ирина Weaver MD [Primary Care Provider] - Stand Alone Forms: Patient Portal/API
[2022-08-17] MEDS: SODIUM CHLORIDE 0.9% 1,000 ML 1000 ML IV (21:51)
[2022-08-17] MEDS: PANTOPRAZOLE 40 MG VIAL IV (21:52)
[2022-08-18 00:39] LABS: Adenovirus F 40/41 Not Detected (Not Detect); Astrovirus Not Detected (Not Detect); Campylobacter Not Detected (Not Detect); Clostridium difficile toxin AB Not Detected (Not Detect); Cryptosporidium Not Detected (Not Detect); Cyclospora cayetanensis Not Detected (Not Detect); Entamoeba histolytica Not Detected (Not Detect); Enteroaggregative E.coli Not Detected (Not Detect); Enteropathogenic E.coli Not Detected (Not Detect); Enterotoxigenic E.coli It/st Not Detected (Not Detect); Giardia lamblia Not Detected (Not Detect); Norovirus GI/GII Not Detected (Not Detect); Plesiomonsa shigelloides Not Detected (Not Detect); Rotavirus A Not Detected (Not Detect); Salmonella Not Detected (Not Detect); Sapovirus Not Detected (Not Detect); Shiga-like toxin-prod E.coli Not Detected (Not Detect); Shigella/Enteroinvasive E.coli Not Detected (Not Detect); Vibrio Not Detected (Not Detect); Vibrio cholerae Not Detected (Not Detect); Yersinia enterocolitica Not Detected (Not Detect)
== END 2022-08-18 01:23 | disposition home or self-care (01) ==
PROVIDERS: Emergency Provider Emergency Medicine; PCP Family Medicine
DX: R10.84 Generalized abdominal pain (principal); R19.7 Diarrhea, unspecified; Z79.899 Other long term (current) drug therapy
CPT/HCPCS: 36415; 80053; 81001; 81003; 83690; 85025; 87507; 93005; 96361; 96374; 96375; 99284; C9113; J2405

== ENCOUNTER 2022-08-23 21:38 | Emergency (ER) | payer OTHER, MEDICAID, SELFPAY ==
[2022-08-23 21:57] VITALS: BP 164/95; PULSE 123; RESP 20; TEMP 36.8; O2SAT 97; BMI 28.2
[2022-08-23 23:27] VITALS: BP 152/97; PULSE 107; RESP 20; TEMP 37.2; O2SAT 96
[2022-08-23 23:35] LABS: Appearance Urine UA CLEAR; Bilirubin Urine UA 1+ (NEGATIVE); Color Urine UA YELLOW; Glucose Urine UA NEGATIVE (Negative); Ketones Urine UA 3+ (NEGATIVE); Leukocyte Esterase Urine UA TRACE (NEGATIVE); Nitrite Urine UA POSITIVE (Negative); Occult Blood Urine UA TRACE-LYSED (Negative); Protein Urine UA 1+ (Negative); Specific Gravity Urine UA >=1.030 (1.000-1.035); Urobilinogen Urine UA 0.2 E.U./dL (0.2); pH Urine UA 5.5 (4.5-8.0)
[2022-08-23 23:40] LABS: Ictotest Urine Negative (Negative)
[2022-08-23 23:41] LABS: Add Manual Diff / Slide Review NO; Basophils Absolute Auto 100 /uL (0-100); Basophils Percent Auto 0.5 % (0-2); Eosinophils Absolute Auto 0 /uL (0-450); Eosinophils Percent Auto 0.2 % (2-4); Hematocrit 47.1 % (41-53); Hemoglobin 16.8 g/dL (13.5-17.5); Lymphocytes Absolute Auto 1100 /uL (1100-4500); Lymphocytes Percent Auto 10.1 % (25-40); Mean Corpuscular HGB Conc 35.7 % (30-36); Mean Corpuscular Hemoglobin 31.2 PG (26-34); Mean Corpuscular Volume 87.2 fL (80-100); Monocytes Absolute Auto 600 /uL (0-900); Monocytes Percent Auto 5.9 % (3-14); Neutrophils Absolute Auto 8900 /uL (1500-7000); Neutrophils Percent Auto 83.3 % (50-75); Platelet Count 305 X10^3/uL (150-400); Red Blood Cell Count 5.39 X10^6/uL (4.5-5.9); Red Cell Distribution Width 14.2 % (11.6-14.8); White Blood Cell Count 10.7 X10^3/uL (4.5-11.0)
--- NOTE | 2022-08-23 23:45 | ED_ITS ---
HPI - Nausea/Vomiting/Diarrhea General Chief complaint: Nausea/Vomiting/Diarrhea Stated complaint: urine and diarrhea have changed, sent by MD Time Seen by Provider: 08/23/22 23:42 Source: patient Mode of arrival: Ambulatory History of Present Illness HPI Narrative: 62-year-old gentleman with a history of hypertension, neurogenic bladder, chronic back pain abdominal pain cramping and diarrhea in February of 2019 that was eventually diagnosed as developing diverticulitis and Clostridium difficile. He complains of a red and irritated tongue and is concerned that he has systemic Litzy. I do believe that he does have thrush. He is had low-grade fevers, no headaches, no chest pain, cough, palpitations. No lower extremity edema. He feels that is getting worse after evaluation on August 18. Related Data Home Medications Medication Instructions Recorded Confirmed acetaminophen 300 mg-codeine 30 mg 1 tab PO Q4-6H PRN pain 03/12/19 tablet amlodipine 5 mg tablet 5 mg PO DAILY 03/12/19 03/12/19 amoxicillin 875 mg-potassium 1 tab PO BID 03/12/19 03/12/19 clavulanate 125 mg tablet atenolol 50 mg tablet 100 mg PO DAILY 03/12/19 03/12/19 ciprofloxacin HCl 500 mg tablet 500 mg PO BID 03/12/19 03/12/19 metronidazole 500 mg tablet 500 mg PO TID 03/12/19 03/12/19 ondansetron 4 mg disintegrating 4 mg PO Q4-6H PRN Nausea 03/12/19 03/12/19 tablet vancomycin 125 mg capsule 125 mg PO QID 03/12/19 03/12/19 Previous Rx's Medication Instructions Recorded ondansetron 4 mg disintegrating 4 mg PO Q8H #10 tabs 03/18/20 tablet ondansetron 4 mg disintegrating 4 mg PO Q6H PRN nausea and 05/25/20 tablet vomiting #14 tabs amlodipine 5 mg tablet 5 mg PO DAILY #20 tabs 11/29/20 metoclopramide HCl 10 mg tablet 10 mg PO Q6H PRN nausea and 04/16/21 (Reglan) vomiting #20 tabs levofloxacin 750 mg tablet 750 mg PO DAILY #7 tabs 08/24/21 amoxicillin 875 mg-potassium 1 tab PO Q12H #20 tabs 04/18/22 clavulanate 125 mg tablet hyoscyamine sulfate 0.125 mg tablet 0.125 mg PO BID-QID PRN dyspepsia 06/26/22 #20 tabs ondansetron 4 mg disintegrating 4 mg PO TID-QID PRN nausea and 06/26/22 tablet vomiting #10 tabs cephalexin 500 mg capsule 500 mg PO TID 5 days #15 caps 08/24/22 clotrimazole 10 mg catherine 10 mg mucous membrane 5XD #60 tabs 08/24/22 dicyclomine 20 mg tablet 20 mg PO TID #14 tabs 08/24/22 Allergies Allergy/AdvReac Type Severity Reaction Status Date / Time barium iodide Allergy Severe Gastrointestinal Verified 09/04/21 21:08 Upset methadone Allergy Severe Blurry Verified 09/04/21 21:08 Vision Sulfa (Sulfonamide Allergy Severe Rash Verified 09/04/21 21:08 Antibiotics) Review of Systems Review of Systems Narrative: Pertinent positive and negative findings as per HPI Patient History Medical History Clostridium difficile infection Fibromyalgia Social History Smoking Status: Never smoker Smoking Status: Never smoker alcohol intake frequency: 0-2 drinks per day Substance Use Type: marijuana Exam Initial Vital Signs Initial Vital Signs: Vital Signs Temperature 98.3 F 08/23/22 21:57 Pulse Rate 123 H 08/23/22 21:57 Respiratory Rate 20 08/23/22 21:57 Blood Pressure 164/95 H 08/23/22 21:57 Pulse Oximetry 97 08/23/22 21:57 Oxygen Delivery Method Room Air 08/23/22 21:57 General: appears to feel somewhat unwell but not acutely toxic Able to give a complete and coherent history. Well-nourished well-developed HEENT: dry mucous membranes, beefy red color to tongue and posterior oropharynx with geographic tongue normal sclera with reactive pupils, Neck: No JVD, supple, no cervical adenopathy Respiratory: Lungs are clear to auscultation, no wheezing no rales no rhonchi. Full and symmetrical air movement Cardiac: mild tachycardia but no murmurs no bruits Abdomen: Soft, mild tenderness along the left entire side into the left lower quadrant and left flank rebound or guarding Skin: Warm and dry, no rashes Neurologic: Grossly neurologically intact with no obvious asymmetries or abnormalities Extremities: No trauma, well perfused Psych: Cooperative, appropriate insight and affect Course Orders Ordered: ED Orders 08/23/22 22:53 EKG-12 Lead Stat 08/23/22 23:07 Ictotest Urine Stat Urinalysis and Microscopic Stat Urine Culture Stat 08/23/22 23:30 Complete Blood Count AUTO DIFF Stat Comprehensive Metabolic Panel Stat Lipase Stat 08/24/22 00:02 CT abdomen pelvis w con Stat Lactate (Lactic Acid) Stat Magnesium Stat 08/24/22 00:05 Blood Culture Stat 08/24/22 00:06 HIV 1 & 2 Ab/Ag 4th Gen Combo Stat Ondansetron HCl (Ondansetron 4 Mg Odt) 4 mg PO NOW PRN PRN Reason: Nausea And Vomiting Last Admin: 08/24/22 00:14 Dose: 4 mg Documented By: RB Ondansetron HCl (Ondansetron 4 Mg/2 Ml Inj) 4 mg IV NOW PRN PRN Reason: Nausea And Vomiting Discontinued Medications Clotrimazole (Clotrimazole Catherine 10 Mg) 10 mg PO NOW ONE Stop: 08/24/22 00:07 Last Admin: 08/24/22 00:49 Dose: Not Given Documented By: RB Sodium Chloride (Normal Saline 0.9%) 1,000 mls @ 2,000 mls/hr IV BOLUS ONE Stop: 08/24/22 00:30 Last Infusion: 08/24/22 01:00 Dose: 2,000 mls/hr Documented By: Infusion: 08/24/22 00:20 Dose: 0 mls/hr Documented By: Admin: 08/24/22 00:09 Dose: 2,000 mls/hr Documented By: RB Ceftriaxone Sodium 2,000 mg/ (Sodium Chloride) 100 mls @ 200 mls/hr IV NOW ONE Stop: 08/24/22 00:02 Last Infusion: 08/24/22 01:00 Dose: 200 mls/hr Documented By: Infusion: 08/24/22 00:20 Dose: 0 mls/hr Documented By: Admin: 08/24/22 00:10 Dose: 200 mls/hr Documented By: RB Vital Signs Vital signs: Vital Signs - 8 hr 08/23/22 21:57 08/23/22 23:27 Temperature 98.3 F 99 F Pulse Rate 123 H 107 H Respiratory Rate 20 20 Blood Pressure 164/95 H 152/97 H Pulse Oximetry 97 96 Oxygen Delivery Method Room Air Room Air MDM - Nausea/Vomiting/Diarrhea Lab Data 08/23/22 23:30 08/23/22 23:30 Labs: Lab Results 08/23/22 08/23/22 08/23/22 Range/Units 23:07 23:20 23:20 WBC (4.5-11.0) X10^3/uL RBC (4.5-5.9) X10^6/uL Hgb (13.5-17.5) g/dL Hct (41-53) % MCV (80-100) fL MCH (26-34) PG MCHC (30-36) % RDW (11.6-14.8) % Plt Count (150-400) X10^3/uL Neut % (Auto) (50-75) % Lymph % (Auto) (25-40) % Fleming % (Auto) (3-14) % Eos % (Auto) (2-4) % Baso % (Auto) (0-2) % Neut # (Auto) (0248-6999) /uL Lymph # (Auto) (1963-7144) /uL Fleming # (Auto) (0-900) /uL Eos # (Auto) (0-450) /uL Baso # (Auto) (0-100) /uL Sodium (137-145) mmol/L Potassium (3.4-5.1) mmol/L Chloride (98-107) mmol/L Carbon Dioxide (22-32) mmol/L BUN (9-20) mg/dL Creatinine (0.66-1.25) mg/dL Estimated GFR (>60) mL/min BUN/Creatinine Ratio (6-22) Glucose (80-110) mg/dL Lactate 1.7 (0.7-2.1) mmol/L Calcium (8.4-10.2) mg/dL Magnesium 1.9 (1.6-2.3) mg/dL Total Bilirubin (0.2-1.3) mg/dL AST (17-59) IU/L ALT (<50) IU/L Alkaline Phosphatase (38-126) U/L Total Protein (6.3-8.2) g/dL Albumin (3.5-5.0) g/dL Globulin (1.7-4.1) g/dL Albumin/Globulin Ratio (1.0-2.8) Lipase (23-300) U/L Urine Color Yellow Urine Appearance Clear Urine pH 5.5 (4.5-8.0) Ur Specific [place] >=1.030 H (1.000-1.035) Urine Protein 1+ H (Negative) Urine Glucose (UA) Negative (Negative) g/dL Urine Ketones 3+ H (NEGATIVE) Urine Occult Blood Trace-lysed (Negative) Urine Nitrate Positive H (Negative) Urine Bilirubin 1+ H (NEGATIVE) Ur Bilirubin Confirm Negative (Negative) Urine Urobilinogen 0.2 (0.2) E.U./dL Ur Leukocyte Esterase Trace H (NEGATIVE) Urine RBC 0-1/hpf (0-5/HPF) Urine WBC 10-30/hpf H (0-5/HPF) Urine Bacteria Many (>30) H (None) Ur Culture Indicated? Specimen cultured HIV 1&2 Ab/P24 Ag 4thGn (NEGATIVE) 08/23/22 08/23/22 08/23/22 Range/Units 23:20 23:30 23:30 WBC 10.7 (4.5-11.0) X10^3/uL RBC 5.39 (4.5-5.9) X10^6/uL Hgb 16.8 (13.5-17.5) g/dL Hct 47.1 (41-53) % MCV 87.2 (80-100) fL MCH 31.2 (26-34) PG MCHC 35.7 (30-36) % RDW 14.2 (11.6-14.8) % Plt Count 305 (150-400) X10^3/uL Neut % (Auto) 83.3 H (50-75) % Lymph % (Auto) 10.1 L (25-40) % Fleming % (Auto) 5.9 (3-14) % Eos % (Auto) 0.2 L (2-4) % Baso % (Auto) 0.5 (0-2) % Neut # (Auto) 8900 H (3912-7225) /uL Lymph # (Auto) 1100 (9460-2931) /uL Fleming # (Auto) 600 (0-900) /uL Eos # (Auto) 0 (0-450) /uL Baso # (Auto) 100 (0-100) /uL Sodium 136 L (137-145) mmol/L Potassium 3.6 (3.4-5.1) mmol/L Chloride 100 (98-107) mmol/L Carbon Dioxide 20 L (22-32) mmol/L BUN 14 (9-20) mg/dL Creatinine 0.96 (0.66-1.25) mg/dL Estimated GFR > 60 (>60) mL/min BUN/Creatinine Ratio 14.6 (6-22) Glucose 112 H (80-110) mg/dL Lactate (0.7-2.1) mmol/L Calcium 9.6 (8.4-10.2) mg/dL Magnesium (1.6-2.3) mg/dL Total Bilirubin 1.8 H (0.2-1.3) mg/dL AST 26 (17-59) IU/L ALT 30 (<50) IU/L Alkaline Phosphatase 67 (38-126) U/L Total Protein 8.0 (6.3-8.2) g/dL Albumin 4.8 (3.5-5.0) g/dL Globulin 3.2 (1.7-4.1) g/dL Albumin/Globulin Ratio 1.5 (1.0-2.8) Lipase 98 D (23-300) U/L Urine Color Urine Appearance Urine pH (4.5-8.0) Ur Specific [place] (1.000-1.035) Urine Protein (Negative) Urine Glucose (UA) (Negative) g/dL Urine Ketones (NEGATIVE) Urine Occult Blood (Negative) Urine Nitrate (Negative) Urine Bilirubin (NEGATIVE) Ur Bilirubin Confirm (Negative) Urine Urobilinogen (0.2) E.U./dL Ur Leukocyte Esterase (NEGATIVE) Urine RBC (0-5/HPF) Urine WBC (0-5/HPF) Urine Bacteria (None) Ur Culture Indicated? HIV 1&2 Ab/P24 Ag 4thGn Negative (NEGATIVE) Urine Dip Bedside Urine Glucose Negative Bedside Urine Bilirubin - Negative Bedside Urine Ketone +++ 80 Urine Specific [place] 1.030 Bedside Urine Occult Blood +/- Bedside Urine pH 6.0 Bedside Urine Protein + 30 Bedside Urine Urobilinogen - Negative Bedside Urine Nitrite + Positive Bedside Urine Leukocytes - Negative Esterase Imaging Data CT scan - abdomen/pelvis: Radiologist's Impression: IMPRESSION:? ? 1. Scattered air-fluid levels throughout the small and large bowel without abnormal dilatation.? Findings are suggestive of a gastroenteritis or ileus. ? 2. Mild segmental wall thickening in the rectosigmoid colon is suggestive of a mild colitis but consider follow-up colonoscopy to exclude a mass. ? 3. Lobulated bladder contour with mild fat stranding redemonstrated.? The findings are suggestive of a mild cystitis versus possible sequelae of a neurogenic bladder.? Recommend correlation clinically. ? ? Dictated by: Fredo Cohen M.D. on 08/24/2022 at 0:58 ? ? MDM Narrative Medical decision making narrative: CC: watery diarrhea greater than 10 times a day continuing for more than a week this is an acute exacerbation of recurrent problem with uncertain diagnosis and prognosis Complicating co-morbidities: recurrent episodes of diarrhea Data collected from: patient Social determinants of health that may influence the patients condition: Medical records reviewed: No hospital admissions however he is had 13 separate ER visits since February of 2019 most of which involved chronic abdominal pain and diarrhea. did have Clostridium difficile in February of 2019. Most recent visit was August 18 and since then he is noticed that his stool has become more prolific, at least 10 watery stools a day, he is dizzy when he stands, notices that his urine smells concentrated and is quite dark and today had 2 episodes of diarrhea that seemed darker and sank to the bottom of the toilet in a way that was not like his usual diarrhea. He was concerned he might be bleeding. Differential considered: C diff, other infectious diarrhea, Crohn's disease, ulcerative colitis, diverticulitis, GI bleeding, sepsis Exam documented above, pertinent findings include: mild left side and left lower quadrant abdominal pain without rebound or guarding, mild tachycardia. also has geographic tongueWith some mild erythema on the undersurface of the to ngue suggesting thrush Lab Test results independently reviewed as above. Pertinent findings: PCR stool sample from August 17 does not show any significant pathology and specifically is negative for C diff. CBC today does not show significant leukocytosis however he does have a modest left shift. There is no significant hemo concentration. Chemistries are reassuring with chronically elevated bilirubin at 1.8 that is unchanged. No liver function abnormalities. Potassium is appropriate urine shows trace leukocyte esterase, positive nitrites, white blood cells and many bacteria it has been cultured. Certainly concern for urinary tract infection Independently reviewed EKG sinus tachycardia at [address] T wave changes without acute ischemia Imaging studies independently reviewed: CT scan is more consistent with gastroenteritis without significant bowel obstruction and no suggestion of kidney stones, hydronephrosis or kidney stranding to suggest acute pyelonephr itis. Discussion: 62-year-old gentleman who looks acutely ill and meeting at least serous criteria. Stool PCR testing 4 days ago did not suggest viral, bacterial or parasitic etiology and was negative for Clostridium difficile. Urine does look like he has a urinary tract infection and was the left-sided abdominal pain possibility of pyelonephritis is certainly entertained. To that end started on fluids and ceftriaxone after blood cultures obtained. Notes that his tongue is somewhat swollen with some tenderness down the back of his throat and physical exam suggests possible thrush as well as geographic tongue. Will add an HIV test for the sake of being thorough. CT scan of the abdomen is currently pending. He is declining any pain medications at this time. 2am Re-evaluated. Continues to have significant gas and abdominal cramping but is feeling better with resolved tachycardia after 2 L of fluid. Reviewed all of his findings. At this point the best explanation is a viral gastroenteritis with possibility of urinary tract infection as well. There is no reason for hospitalization at this time. We talked about making sure that fluids are staying down. I am going to give him a dose of Imodium in the emergency room and told him that he can take more if he continues to have profuse diarrhea. Will also give him a prescription for Bentyl to see if this makes any difference with the cramping. Advised him to discontinue it if it is not helping. For the probable bladder infection I am going to give him an additional 5 days of keflex (sulfa allergy) after the 2 g of ceftriaxone given in the emergency department. He requests prescription for his thrush so will gi ve him prescription for clotrimazole troches. I did let him know that I had checked an HIV test. States he is only had 2 sexual partners a and an ex- over the last multiple years and thinks his risk is low but is glad that we were thorough. If positive he will obviously need follow-up and notification. Questions are answered and he is safe for discharge home Discharge Plan Departure Patient Disposition: Home Clinical Impression: Gastroenteritis, Acute UTI, Thrush of mouth and esophagus Abdominal pain Qualifiers: Abdominal location: generalized Qualified Code(s): R10.84 - Generalized abdominal pain Diarrhea Qualifiers: Diarrhea type: unspecified type Qualified Code(s): R19.7 - Diarrhea, unspecified Instructions: DI for Viral Gastroenteritis -- Adult Activity Restrictions/Additional Instructions: thank you for coming in today regarding your diarrhea: This is not Clostridium difficile and does not appear to be a bacterial infection. Knowing that, it is okay to use Imodium to slow the diarrhea down. You do not want to take too much of this otherwise you will be having constipation as an additional problem. I have given you a prescription for Bentyl. This medications helps with bowel spasm. If it is helpful with the cramping, please feel free to use it. If it does not, do not continue to take it regarding your bladder infection: This does not look like a kidney infection and you do not have a kidney stone. You did receive IV antibiotics in the emergency department, ceftriaxone. I am indicating 5 additional days of keflex for the bladder infection regarding your thrush: I have given you a prescription for clotrimazole troches. These can help treat the yeast infection in your mouth and down your throat. It is a bit unusual to have this type of infection in an otherwise healthy adult. In an effort to be completely thorough, I have added an HIV test to your blood work. You will be contacted if there are concerns with that test. All prescriptions have been electronically sent to [facility] pharmacy If you find that you are having worsening fevers, unable to void, have bloody stool began vomiting particularly bloody emesis you do need to return to the emergency department I hope you feel better Prescriptions: New dicyclomine 20 mg tablet 20 mg PO TID Qty: 14 0RF cephalexin 500 mg capsule 500 mg PO TID 5 Days Qty: 15 0RF clotrimazole 10 mg catherine 10 mg mucous membrane 5XD Qty: 60 0RF No Action metronidazole 500 mg tablet 500 mg PO TID acetaminophen-codeine 300-30 mg tablet 1 tab PO Q4-6H PRN (Reason: pain) amlodipine 5 mg tablet 5 mg PO DAILY ciprofloxacin HCl 500 mg tablet 500 mg PO BID vancomycin 125 mg capsule 125 mg PO QID ondansetron 4 mg tablet,disintegrating 4 mg PO Q4-6H PRN (Reason: Nausea) atenolol 50 mg tablet 100 mg PO DAILY amoxicillin-pot clavulanate 875-125 mg tablet 1 tab PO BID ondansetron 4 mg tablet,disintegrating 4 mg PO Q8H Qty: 10 0RF ondansetron 4 mg tablet,disintegrating 4 mg PO Q6H PRN (Reason: nausea and vomiting) Qty: 14 0RF amlodipine 5 mg tablet 5 mg PO DAILY Qty: 20 0RF metoclopramide HCl [Reglan] 10 mg tablet 10 mg PO Q6H PRN (Reason: nausea and vomiting) Qty: 20 0RF amoxicillin-pot clavulanate 875-125 mg tablet 1 tab PO Q12H Qty: 20 0RF hyoscyamine sulfate 0.125 mg tablet 0.125 mg PO BID-QID PRN (Reason: dyspepsia) Qty: 20 0RF ondansetron 4 mg tablet,disintegrating 4 mg PO TID-QID PRN (Reason: nausea and vomiting) Qty: 10 0RF levofloxacin 750 mg tablet 750 mg PO DAILY Qty: 7 0RF Referrals: Ирина Weaver MD [Primary Care Provider] - Stand Alone Forms: Patient Portal/API
[2022-08-23 23:47] LABS: Alanine Aminotransferase 30 IU/L (<50); Albumin 4.8 g/dL (3.5-5.0); Albumin Globulin Ratio 1.5 (1.0-2.8); Alkaline Phosphatase 67 U/L (38-126); Aspartate Aminotransferase 26 IU/L (17-59); BUN Creatinine Ratio 14.6 (6-22); Bilirubin Total 1.8 mg/dL (0.2-1.3); Blood Urea Nitrogen 14 mg/dL (9-20); Calcium 9.6 mg/dL (8.4-10.2); Carbon Dioxide 20 mmol/L (22-32); Chloride 100 mmol/L (98-107); Estimated Glomerular Filt Rate > 60 mL/min (>60); Globulin 3.2 g/dL (1.7-4.1); Glucose 112 mg/dL (80-110); HEMOLYSIS < 15 (0-50); Lipase 98 U/L (23-300); Potassium 3.6 mmol/L (3.4-5.1); Sodium 136 mmol/L (137-145)
[2022-08-23 23:49] LABS: Bacteria Urine Many (>30); Culture Indicated Urine Specimen Cultured; RBC Urine 0-1/HPF (0-5/HPF); WBC Urine 10-30/HPF (0-5/HPF)
--- NOTE | 2022-08-24 00:02 | DI.CT.S_ITS ---
PROCEDURE: CT ABDOMEN PELVIS W CON INDICATIONS: abdominal pain, LLQ TECHNIQUE: After the administration of oral and IV contrast, axial sections were acquired from the lung bases to the pubic symphysis. Coronal and sagittal reformats were performed. For radiation dose reduction, the following was used: automated exposure control, adjustment of mA and/or kV according to patient size. COMPARISON: [facility], CT, CT ABDOMEN PELVIS W CON, 08/24/2021, 18:06. [facility], CT, CT ABDOMEN PELVIS W CON, 06/26/2022, 21:06. FINDINGS: Image quality: There is metallic streak artifact secondary to patient's surgical hardware throughout the thoracolumbar spine and pelvis limiting evaluation. Lung bases: There is mild dependent atelectasis. Heart: Heart is normal in size. ABDOMEN: Liver: There is hypoattenuation of the liver compatible with fatty infiltration. Gallbladder: Within normal limits without calcified gallstones. Biliary ducts: No biliary ductal dilatation. Pancreas: There is moderate fatty atrophy of the pancreas. No pancreatic duct dilatation or discrete mass. Spleen: Normal in size. Adrenal Glands: No adrenal nodules. Kidneys and Ureters: No hydronephrosis. There is a cyst in the inferior pole of the left kidney. Stomach and Bowel: Stomach and small bowel loops are normal in caliber and wall thickness. The appendix appears within normal limits. There is mild segmental wall thickening in the rectosigmoid colon. There are scattered air-fluid levels throughout the small and large bowel without abnormal distention or transition point to suggest obstruction. Findings are suggestive of an ileus or gastroenteritis. Peritoneum: No abnormal intraperitoneal fluid. No free air. Ventral Wall: No hernia. Abdominal Nodes: No retroperitoneal or mesenteric adenopathy by size criteria. Vessels: Aorta and inferior vena cava are normal in size. PELVIS: Pelvic Organs: Unremarkable. Bladder: The bladder demonstrates a lobulated contour along the bladder dome with mild fat stranding. Pelvic Nodes: No enlarged lymph nodes. Miscellaneous: No inguinal hernias are seen. Bones: Visualized osseous structures demonstrate no suspicious focal lesions. IMPRESSION: 1. Scattered air-fluid levels throughout the small and large bowel without abnormal dilatation. Findings are suggestive of a gastroenteritis or ileus. 2. Mild segmental wall thickening in the rectosigmoid colon is suggestive of a mild colitis but consider follow-up colonoscopy to exclude a mass. 3. Lobulated bladder contour with mild fat stranding redemonstrated. The findings are suggestive of a mild cystitis versus possible sequelae of a neurogenic bladder. Recommend correlation clinically. Dictated by: Fredo Cohen M.D. on 08/24/2022 at 0:58 Approved by: Fredo Cohen M.D. on 08/24/2022 at 1:10
[2022-08-24] MEDS: SODIUM CHLORIDE 0.9% 1,000 ML 2000 ML IV (00:09)
[2022-08-24] MEDS: cefTRIAXone 2,000 MG in SODIUM CHLORIDE 0.9% 100 ML 200 MG IV (00:10)
[2022-08-24] MEDS: ONDANSETRON 4 MG ODT PO (00:14)
[2022-08-24 00:28] LABS: Lactate (Lactic Acid) 1.7 mmol/L (0.7-2.1); Magnesium 1.9 mg/dL (1.6-2.3)
[2022-08-24 01:11] LABS: HIV 1 & 2 Ab/Ag 4th Gen Combo NEGATIVE (NEGATIVE)
[2022-08-24] MEDS: DICYCLOMINE 10 MG CAPSULE 20 MG PO (02:02)
[2022-08-24] MEDS: LOPERAMIDE 2 MG CAPSULE 4 MG PO (02:02)
[2022-08-24 02:15] VITALS: BP 172/104; PULSE 95; O2SAT 97
== END 2022-08-24 00:10 | disposition home or self-care (01) ==
PROVIDERS: Emergency Provider Emergency Medicine; PCP Family Medicine; Referring Provider Family Medicine
DX: K52.9 Noninfective gastroenteritis and colitis, unspecified (principal); B37.81 Candidal esophagitis; N39.0 Urinary tract infection, site not specified; R10.84 Generalized abdominal pain; Z79.899 Other long term (current) drug therapy
CPT/HCPCS: 36415; 74177; 80053; 81001; 81003; 83605; 83690; 83735; 85025; 87040; 87077; 87086; 87186; 87389; 93005; 96365; 99284; J0696; Q9967

== ENCOUNTER 2022-10-17 18:38 | Emergency (ER) | payer OTHER, MEDICAID, SELFPAY ==
[2022-10-17] VITALS (19 sets, daily range): BP systolic 131–198; BP diastolic 78–125; PULSE 95–134; RESP 12–29; TEMP 36.6–37.1; O2SAT 95–98; BMI 29.0
[2022-10-17] MEDS: ONDANSETRON 4 MG/2 ML INJ IV (19:01)
[2022-10-17 19:07] LABS: Add Manual Diff / Slide Review NO; Basophils Absolute Auto 0 /uL (0-100); Basophils Percent Auto 0.1 % (0-2); Eosinophils Absolute Auto 0 /uL (0-450); Hematocrit 53.1 % (41-53); Hemoglobin 18.6 g/dL (13.5-17.5); Lymphocytes Absolute Auto 800 /uL (1100-4500); Lymphocytes Percent Auto 4.3 % (25-40); Mean Corpuscular HGB Conc 35.1 % (30-36); Mean Corpuscular Volume 88.4 fL (80-100); Monocytes Absolute Auto 600 /uL (0-900); Monocytes Percent Auto 3.4 % (3-14); Neutrophils Absolute Auto 16800 /uL (1500-7000); Neutrophils Percent Auto 92.2 % (50-75); Platelet Count 374 X10^3/uL (150-400); Red Blood Cell Count 6.01 X10^6/uL (4.5-5.9); Red Cell Distribution Width 13.8 % (11.6-14.8); White Blood Cell Count 18.3 X10^3/uL (4.5-11.0)
--- NOTE | 2022-10-17 19:11 | ED_ITS ---
HPI - General Adult General Chief complaint: Abdominal Pain Stated complaint: stomach pain, nausea Time Seen by Provider: 10/17/22 19:00 Source: patient and family Mode of arrival: Ambulatory Limitations: no limitations History of Present Illness HPI narrative: Patient is a 62-year-old male. Has an extensive history of issues with his abdomen. Has been seen here in the emergency department multiple times for si milar symptoms that were brought him in today. Has had approximately 12-24 hours of abdominal pain and nausea. Has been dry heaving but no vomiting. No change in bowel habits. No urinary symptoms. Did try Zofran at home without any improvements. No recent antibiotics. No recent travel. No known sick contacts. Scheduled to see a garment finisher at the end of this month. Related Data Home Medications Medication Instructions Recorded Confirmed acetaminophen 300 mg-codeine 30 mg 1 tab PO Q4-6H PRN pain 03/12/19 tablet amlodipine 5 mg tablet 5 mg PO DAILY 03/12/19 03/12/19 amoxicillin 875 mg-potassium 1 tab PO BID 03/12/19 03/12/19 clavulanate 125 mg tablet atenolol 50 mg tablet 100 mg PO DAILY 03/12/19 03/12/19 ciprofloxacin HCl 500 mg tablet 500 mg PO BID 03/12/19 03/12/19 metronidazole 500 mg tablet 500 mg PO TID 03/12/19 03/12/19 ondansetron 4 mg disintegrating 4 mg PO Q4-6H PRN Nausea 03/12/19 03/12/19 tablet vancomycin 125 mg capsule 125 mg PO QID 03/12/19 03/12/19 Previous Rx's Medication Instructions Recorded ondansetron 4 mg disintegrating 4 mg PO Q8H #10 tabs 03/18/20 tablet ondansetron 4 mg disintegrating 4 mg PO Q6H PRN nausea and 05/25/20 tablet vomiting #14 tabs amlodipine 5 mg tablet 5 mg PO DAILY #20 tabs 11/29/20 metoclopramide HCl 10 mg tablet 10 mg PO Q6H PRN nausea and 04/16/21 (Reglan) vomiting #20 tabs levofloxacin 750 mg tablet 750 mg PO DAILY #7 tabs 08/24/21 amoxicillin 875 mg-potassium 1 tab PO Q12H #20 tabs 09/04/21 clavulanate 125 mg tablet hyoscyamine sulfate 0.125 mg tablet 0.125 mg PO BID-QID PRN dyspepsia 06/26/22 #20 tabs ondansetron 4 mg disintegrating 4 mg PO TID-QID PRN nausea and 06/26/22 tablet vomiting #10 tabs clotrimazole 10 mg catherine 10 mg mucous membrane 5XD #60 tabs 08/24/22 dicyclomine 20 mg tablet 20 mg PO TID #14 tabs 08/24/22 metoclopramide HCl 10 mg tablet 10 mg PO Q6H PRN nausea and 10/17/22 (Reglan) vomiting #14 tabs Allergies Allergy/AdvReac Type Severity Reaction Status Date / Time barium iodide Allergy Severe Gastrointestinal Verified 10/17/22 18:41 Upset methadone Allergy Severe Blurry Verified 10/17/22 18:41 Vision Sulfa (Sulfonamide Allergy Severe Rash Verified 10/17/22 18:41 Antibiotics) Review of Systems Constitutional Constitutional: Reports system reviewed and no additional complaints, except as documented Cardiovascular Cardiovascular: Reports system reviewed and no additional complaints, except as documented Respiratory Respiratory: Reports system reviewed and no additional complaints, except as documented Gastrointestinal Gastrointestinal: Reports system reviewed and no additional complaints, except as documented Genitourinary Genitourinary: Reports system reviewed and no additional complaints, except as documented Integumentary/Breasts Skin/Breast: Reports system reviewed and no additional complaints, except as documented Hematologic/Lymphatic On Anticoagulants: No Patient History Medical History Clostridium difficile infection Fibromyalgia Social History Smoking Status: Never smoker Smoking Status: Never smoker alcohol intake frequency: holidays/special occasions only Substance Use Type: marijuana Exam Initial Vital Signs Initial Vital Signs: Vital Signs Temperature 97.9 F 10/17/22 18:41 Pulse Rate 134 H 10/17/22 18:41 Respiratory Rate 22 10/17/22 18:41 Blood Pressure 198/119 H 10/17/22 18:41 Pulse Oximetry 97 10/17/22 18:41 Oxygen Delivery Method Room Air 10/17/22 18:41 Const General: cooperative and ill appearing HENRI Head: normal to inspection and normocephalic Resp Effort & Inspection: normal respiratory effort and tachypneic Auscultation: clear to auscultation bilaterally Cardio Rate: tachycardic Rhythm: regular rhythm GI Inspection: non-distended Palpation: tender Skin Other: Diaphoretic Neuro General: patient alert, patient awake, patient oriented x3 and moves all extremities Extrem General: normal to inspection and capillary refill normal Psych Appearance: grossly normal and well kempt Course Orders Ordered: ED Orders 10/17/22 18:54 Complete Blood Count AUTO DIFF Stat Comprehensive Metabolic Panel Stat Lactate (Lactic Acid) Stat Lipase Stat Procalcitonin Stat 10/17/22 19:03 EKG-12 Lead Routine 10/17/22 19:36 CT abdomen pelvis w con Stat 10/17/22 20:04 Urine Culture Stat 10/17/22 20:30 Blood Culture Stat 10/17/22 21:50 Basic Metabolic Panel Stat Complete Blood Count AUTO DIFF Stat Discontinued Medications Hydromorphone HCl (Hydromorphone 1 Mg Inj) 1 mg IV NOW ONE Stop: 10/17/22 19:22 Last Admin: 10/17/22 19:30 Dose: 1 mg Documented By: NILA Sodium Chloride (Normal Saline 0.9%) 1,000 mls @ 1,000 mls/hr IV BOLUS ONE Stop: 10/17/22 20:10 Last Infusion: 10/17/22 20:20 Dose: 0 mls/hr Documented By: Admin: 10/17/22 19:19 Dose: 1,000 mls/hr Documented By: AT Sodium Chloride (Normal Saline 0.9%) 1,000 mls @ 1,000 mls/hr IV BOLUS ONE Stop: 10/17/22 20:40 Last Infusion: 10/17/22 21:08 Dose: 0 mls/hr Documented By: Admin: 10/17/22 20:08 Dose: 1,000 mls/hr Documented By: GC Ceftriaxone Sodium 1,000 mg/ (Sodium Chloride) 100 mls @ 200 mls/hr IV NOW ONE Stop: 10/17/22 19:43 Last Infusion: 10/17/22 20:38 Dose: 0 mls/hr Documented By: Admin: 10/17/22 20:07 Dose: 200 mls/hr Documented By: FEDERICA Metoclopramide HCl (Metoclopramide 10 Mg/2 Ml Inj) 10 mg IV NOW ONE Stop: 10/17/22 19:15 Last Admin: 10/17/22 19:20 Dose: 10 mg Documented By: AT Ondansetron HCl (Ondansetron 4 Mg/2 Ml Inj) 4 mg IV NOW PRN PRN Reason: Nausea And Vomiting Last Admin: 10/17/22 19:01 Dose: 4 mg Documented By: AT Vital Signs Vital signs: Vital Signs - 8 hr 10/17/22 20:10 10/17/22 20:12 10/17/22 20:12 Temperature Pulse Rate 113 H 114 H Respiratory Rate 18 Blood Pressure 154/106 H Pulse Oximetry 98 97 10/17/22 20:15 10/17/22 20:15 10/17/22 20:30 Temperature Pulse Rate 109 H Respiratory Rate 12 Blood Pressure 141/102 H 142/94 H Pulse Oximetry 96 10/17/22 20:30 10/17/22 20:45 10/17/22 20:45 Temperature Pulse Rate 100 H 97 H Respiratory Rate 15 16 Blood Pressure 150/93 H Pulse Oximetry 96 95 10/17/22 21:00 10/17/22 21:00 10/17/22 21:15 Temperature Pulse Rate 95 H 97 H Respiratory Rate 13 16 Blood Pressure 135/79 Pulse Oximetry 98 98 10/17/22 21:15 10/17/22 21:30 10/17/22 21:30 Temperature Pulse Rate 102 H Respiratory Rate 17 Blood Pressure 140/87 136/85 Pulse Oximetry 97 10/17/22 21:45 10/17/22 21:45 10/17/22 22:00 Temperature Pulse Rate 110 H Respiratory Rate 16 Blood Pressure 162/91 H 146/78 H Pulse Oximetry 96 10/17/22 22:00 10/17/22 22:15 10/17/22 22:15 Temperature Pulse Rate 101 H 106 H Respiratory Rate 14 14 Blood Pressure 147/78 H Pulse Oximetry 97 10/17/22 22:30 10/17/22 22:30 10/17/22 22:45 Temperature Pulse Rate 104 H Respiratory Rate 17 Blood Pressure 151/89 H 131/81 Pulse Oximetry 95 10/17/22 22:45 10/17/22 23:00 10/17/22 23:00 Temperature Pulse Rate 108 H 104 H Respiratory Rate 21 14 Blood Pressure 131/81 Pulse Oximetry 97 96 10/17/22 23:08 Temperature 98.7 F Pulse Rate Respiratory Rate Blood Pressure Pulse Oximetry Medical Decision Making Medical Records Medical records reviewed: Yes I reviewed the patient's medical records. Lab Data Lab results reviewed: Yes I reviewed the patient's lab results. 10/17/22 21:50 10/17/22 21:50 Labs: Lab Results 10/17/22 10/17/22 10/17/22 Range/Units 18:54 18:54 18:54 WBC 18.3 H (4.5-11.0) X10^3/uL RBC 6.01 H (4.5-5.9) X10^6/uL Hgb 18.6 H (13.5-17.5) g/dL Hct 53.1 H (41-53) % MCV 88.4 (80-100) fL MCH 31.0 (26-34) PG MCHC 35.1 (30-36) % RDW 13.8 (11.6-14.8) % Plt Count 374 (150-400) X10^3/uL Neut % (Auto) 92.2 H (50-75) % Lymph % (Auto) 4.3 L (25-40) % [place] % (Auto) 3.4 (3-14) % Eos % (Auto) 0.0 L (2-4) % Baso % (Auto) 0.1 (0-2) % Neut # (Auto) 71887 H (6530-9738) /uL Lymph # (Auto) 800 L (7772-4332) /uL [place] # (Auto) 600 (0-900) /uL Eos # (Auto) 0 (0-450) /uL Baso # (Auto) 0 (0-100) /uL Sodium 139 (137-145) mmol/L Potassium 4.3 (3.4-5.1) mmol/L Chloride 101 (98-107) mmol/L Carbon Dioxide 16 L (22-32) mmol/L BUN 17 (9-20) mg/dL Creatinine 1.50 H (0.66-1.25) mg/dL Estimated GFR 52 L (>60) mL/min BUN/Creatinine Ratio 11.3 (6-22) Glucose 173 H (80-110) mg/dL Lactate 6.3 H* (0.7-2.1) mmol/L Calcium 10.8 H (8.4-10.2) mg/dL Total Bilirubin 1.8 H (0.2-1.3) mg/dL AST 35 (17-59) IU/L ALT 42 (<50) IU/L Alkaline Phosphatase 88 (38-126) U/L Total Protein 9.4 H (6.3-8.2) g/dL Albumin 5.4 H (3.5-5.0) g/dL Globulin 4.0 (1.7-4.1) g/dL Albumin/Globulin Ratio 1.4 (1.0-2.8) Lipase 96 (23-300) U/L Procalcitonin (<0.5) ng/mL 10/17/22 10/17/22 10/17/22 Range/Units 18:54 21:50 21:50 WBC 15.2 H (4.5-11.0) X10^3/uL RBC 5.34 (4.5-5.9) X10^6/uL Hgb 16.3 (13.5-17.5) g/dL Hct 46.8 (41-53) % MCV 87.7 (80-100) fL MCH 30.4 (26-34) PG MCHC 34.7 (30-36) % RDW 13.9 (11.6-14.8) % Plt Count 255 (150-400) X10^3/uL Neut % (Auto) 94.7 H (50-75) % Lymph % (Auto) 2.9 L (25-40) % [place] % (Auto) 2.1 L (3-14) % Eos % (Auto) 0.0 L (2-4) % Baso % (Auto) 0.3 (0-2) % Neut # (Auto) 70815 H (9232-7084) /uL Lymph # (Auto) 400 L (2656-0322) /uL [place] # (Auto) 300 (0-900) /uL Eos # (Auto) 0 (0-450) /uL Baso # (Auto) 0 (0-100) /uL Sodium (137-145) mmol/L Potassium (3.4-5.1) mmol/L Chloride (98-107) mmol/L Carbon Dioxide (22-32) mmol/L BUN (9-20) mg/dL Creatinine (0.66-1.25) mg/dL Estimated GFR (>60) mL/min BUN/Creatinine Ratio (6-22) Glucose (80-110) mg/dL Lactate 1.7 (0.7-2.1) mmol/L Calcium (8.4-10.2) mg/dL Total Bilirubin (0.2-1.3) mg/dL AST (17-59) IU/L ALT (<50) IU/L Alkaline Phosphatase (38-126) U/L Total Protein (6.3-8.2) g/dL Albumin (3.5-5.0) g/dL Globulin (1.7-4.1) g/dL Albumin/Globulin Ratio (1.0-2.8) Lipase (23-300) U/L Procalcitonin 0.05 (<0.5) ng/mL 10/17/22 Range/Units 21:50 WBC (4.5-11.0) X10^3/uL RBC (4.5-5.9) X10^6/uL Hgb (13.5-17.5) g/dL Hct (41-53) % MCV (80-100) fL MCH (26-34) PG MCHC (30-36) % RDW (11.6-14.8) % Plt Count (150-400) X10^3/uL Neut % (Auto) (50-75) % Lymph % (Auto) (25-40) % [place] % (Auto) (3-14) % Eos % (Auto) (2-4) % Baso % (Auto) (0-2) % Neut # (Auto) (2361-2893) /uL Lymph # (Auto) (8363-9799) /uL [place] # (Auto) (0-900) /uL Eos # (Auto) (0-450) /uL Baso # (Auto) (0-100) /uL Sodium 136 L (137-145) mmol/L Potassium 4.3 (3.4-5.1) mmol/L Chloride 106 (98-107) mmol/L Carbon Dioxide 18 L (22-32) mmol/L BUN 14 (9-20) mg/dL Creatinine 1.00 (0.66-1.25) mg/dL Estimated GFR > 60 (>60) mL/min BUN/Creatinine Ratio 14.0 (6-22) Glucose 106 (80-110) mg/dL Lactate (0.7-2.1) mmol/L Calcium 8.8 (8.4-10.2) mg/dL Total Bilirubin (0.2-1.3) mg/dL AST (17-59) IU/L ALT (<50) IU/L Alkaline Phosphatase (38-126) U/L Total Protein (6.3-8.2) g/dL Albumin (3.5-5.0) g/dL Globulin (1.7-4.1) g/dL Albumin/Globulin Ratio (1.0-2.8) Lipase (23-300) U/L Procalcitonin (<0.5) ng/mL Urine Dip Bedside Urine Glucose Negative Bedside Urine Bilirubin ++ 2 Bedside Urine Ketone ++ 40 Urine Specific Jenner 1.03 Bedside Urine Occult Blood +/- Bedside Urine pH 5.5 Bedside Urine Protein +++ 300 Bedside Urine Urobilinogen - Negative Bedside Urine Nitrite - Negative Bedside Urine Leukocytes + 70 Esterase Point of care testing: Urine Dip Bedside Urine Glucose Negative Bedside Urine Bilirubin ++ 2 Bedside Urine Ketone ++ 40 Urine Specific Jenner 1.03 Bedside Urine Occult Blood +/- Bedside Urine pH 5.5 Bedside Urine Protein +++ 300 Bedside Urine Urobilinogen - Negative Bedside Urine Nitrite - Negative Bedside Urine Leukocytes + [address] scan - abdomen/pelvis: Radiologist's Impression: PROCEDURE:? CT ABDOMEN PELVIS W CON ? INDICATIONS:? Generalized abdominal pain, vomiting, elevated lactate ? TECHNIQUE:? After the administration of IV contrast, axial sections were acquired from the lung bases to the pubic symphysis.? Coronal and sagittal reformats were performed.? For radiation dose reduction, the following was used:? automated exposure control, adjustment of mA and/or kV according to patient size. ? COMPARISON:? Located Within [facility], CT, CT ABDOMEN PELVIS W CON, 05/25/2020, 12:29.? [facility], CT, CT ABDOMEN PELVIS WITHOUT CONTRAST, 03/08/2019, 11:35.? Located Within [facility], CT, CT ABDOMEN PELVIS W CON, 06/26/2022, 21:06.? Located Within [facility], CT, CT ABDOMEN PELVIS W CON, 08/24/2022, 0:28. ? FINDINGS:? Image quality:? There is extensive metallic streak artifact from patient's surgical hardware in the spine.? ? Lung bases:? There is scarring redemonstrated in the lung bases.? There is a small nodule in the right middle lobe measuring up to 0.5 cm which appears unchanged compared to prior studies dating back to 05/25/2020.? ? Heart:? Heart is normal in size. ? ? ABDOMEN: Liver:? No mass lesion. Gallbladder:? Within normal limits without calcified gallstones.? ? Biliary ducts:? No biliary ductal dilatation.? ? Pancreas:? There is moderate fatty atrophy of the pancreas.? No pancreatic duct dilatation or discrete pancreatic mass identified..? ? Spleen:? Normal in size.? ? Adrenal Glands:? No adrenal nodules.? ? Kidneys and Ureters:? No hydronephrosis.? There are 2 left renal cysts. ? ? Stomach and Bowel:? Stomach and small bowel loops are normal in caliber and wall thickness.? The appendix is normal.? There are a few segments of mild wall thickening throughout the colon suggestive of a mild colitis. Peritoneum:? No abnormal intraperitoneal fluid.? No free air.? ? Ventral Wall: ? No hernia.? Abdominal Nodes:? No retroperitoneal or mesenteric adenopathy by size criteria.? Vessels:? Aorta and inferior vena cava are normal in size.? The celiac, superior mesenteric, and inferior mesenteric arteries appear patent.? ? PELVIS: Pelvic Organs:? Unremarkable.? ? Bladder:? The urinary bladder is nondistended..? ? Pelvic Nodes: No enlarged lymph nodes.? Miscellaneous: No inguinal hernias are seen. ? ? ? Bones:? Extensive postsurgical changes are redemonstrated throughout the visualized thoracic and lumbar spine status post posterior fixation extending to the S1 level as well as bilateral fixation screws traversing the sacroiliac joints.? There is a levoscoliosis of the lumbar spine again noted centered at L3.? Visualized osseous structures demonstrate no suspicious focal lesions. ? IMPRESSION:? ? 1. Mild segmental wall thickening throughout the colon suggestive of a mild colitis. ? 2. Colonic diverticulosis without acute diverticulitis.? ECG Data Attestation: I personally reviewed and interpreted this ECG as follows: Interpretation: Sinus tachycardia Ventricular rate of 137 Normal axis Normal QRS Normal QTC No ST T wave changes MDM Narrative Medical decision making narrative: Patient appeared to be extremely uncomfortable. Was diaphoretic. Generalized abdominal tenderness. Was tachycardic. Had leukocytosis and elevated lactate. Review of his medical record shows he is presented very similar to this in the past. Was given Zofran and then Reglan. Cultures were obtained. Antibiotics were started. Patient did receive 2 L of fluid. He was sent for his CT scan. While he was in the CT scan he had a large emesis. Afterwards he stated that he felt much better. When I re-evaluated the patient after this he states that his nausea was much better. Repeat labs show an improvement of his leukocytosis which I suspect is stress reaction given his presentation. His lactate was normal. The CT scan showed colitis but no acute surgical pathology. Patient was able to tolerate oral intake. Once again these symptoms have happened to him in the past. He is scheduled to see GI in approximately 1 month from now. There is no indication for antibiotics. No indication for surgical consultation given the improvement/resolution of his symptoms after the emesis. He has Zofran at home. I will provide a prescription for Reglan. No indication for admission to the hospital. Patient feels comfortable being discharged home. He was given return precautions. He expressed understanding and agreement. Discharge Plan Departure Patient Disposition: Home Clinical Impression: Abdominal pain, Vomiting Instructions: DI for Abdominal Pain-Adult Activity Restrictions/Additional Instructions: Recommend that you continue to take all of your medications as directed and keep all of your scheduled medical appointments to include with your neurologist tomorrow and also with the GI doctors later this month. Return to the emergency department for new or worsening symptoms. Prescriptions: New metoclopramide HCl [Reglan] 10 mg tablet 10 mg PO Q6H PRN (Reason: nausea and vomiting) Qty: 14 0RF No Action metronidazole 500 mg tablet 500 mg PO TID acetaminophen-codeine 300-30 mg tablet 1 tab PO Q4-6H PRN (Reason: pain) amlodipine 5 mg tablet 5 mg PO DAILY ciprofloxacin HCl 500 mg tablet 500 mg PO BID vancomycin 125 mg capsule 125 mg PO QID ondansetron 4 mg tablet,disintegrating 4 mg PO Q4-6H PRN (Reason: Nausea) atenolol 50 mg tablet 100 mg PO DAILY amoxicillin-pot clavulanate 875-125 mg tablet 1 tab PO BID ondansetron 4 mg tablet,disintegrating 4 mg PO Q8H Qty: 10 0RF ondansetron 4 mg tablet,disintegrating 4 mg PO Q6H PRN (Reason: nausea and vomiting) Qty: 14 0RF amlodipine 5 mg tablet 5 mg PO DAILY Qty: 20 0RF metoclopramide HCl [Reglan] 10 mg tablet 10 mg PO Q6H PRN (Reason: nausea and vomiting) Qty: 20 0RF amoxicillin-pot clavulanate 875-125 mg tablet 1 tab PO Q12H Qty: 20 0RF hyoscyamine sulfate 0.125 mg tablet 0.125 mg PO BID-QID PRN (Reason: dyspepsia) Qty: 20 0RF ondansetron 4 mg tablet,disintegrating 4 mg PO TID-QID PRN (Reason: nausea and vomiting) Qty: 10 0RF dicyclomine 20 mg tablet 20 mg PO TID Qty: 14 0RF clotrimazole 10 mg catherine 10 mg mucous membrane 5XD Qty: 60 0RF levofloxacin 750 mg tablet 750 mg PO DAILY Qty: 7 0RF Referrals: Ирина Weaver MD [Primary Care Provider] - Stand Alone Forms: Patient Portal/API
[2022-10-17 19:15] LABS: Albumin 5.4 g/dL (3.5-5.0); Albumin Globulin Ratio 1.4 (1.0-2.8); Alkaline Phosphatase 88 U/L (38-126); Aspartate Aminotransferase 35 IU/L (17-59); BUN Creatinine Ratio 11.3 (6-22); Bilirubin Total 1.8 mg/dL (0.2-1.3); Blood Urea Nitrogen 17 mg/dL (9-20); Calcium 10.8 mg/dL (8.4-10.2); Carbon Dioxide 16 mmol/L (22-32); Chloride 101 mmol/L (98-107); Estimated Glomerular Filt Rate 52 mL/min (>60); Glucose 173 mg/dL (80-110); HEMOLYSIS 30 (0-50); Lipase 96 U/L (23-300); Potassium 4.3 mmol/L (3.4-5.1); Sodium 139 mmol/L (137-145); Total Protein 9.4 g/dL (6.3-8.2)
[2022-10-17] MEDS: SODIUM CHLORIDE 0.9% 1,000 ML 1000 ML IV ×2 (19:19→20:08)
[2022-10-17] MEDS: METOCLOPRAMIDE 10 MG/2 ML INJ IV (19:20)
[2022-10-17 19:21] LABS: Alanine Aminotransferase 42 IU/L (<50)
[2022-10-17 19:27] LABS: Lactate (Lactic Acid) 6.3 mmol/L (0.7-2.1)
[2022-10-17] MEDS: HYDROMORPHONE 1 MG INJ IV (19:30)
--- NOTE | 2022-10-17 19:36 | DI.CT.S_ITS ---
PROCEDURE: CT ABDOMEN PELVIS W CON INDICATIONS: Generalized abdominal pain, vomiting, elevated lactate TECHNIQUE: After the administration of IV contrast, axial sections were acquired from the lung bases to the pubic symphysis. Coronal and sagittal reformats were performed. For radiation dose reduction, the following was used: automated exposure control, adjustment of mA and/or kV according to patient size. COMPARISON: [facility], CT, CT ABDOMEN PELVIS W CON, 05/25/2020, 12:29. [facility], CT, CT ABDOMEN PELVIS WITHOUT CONTRAST, 03/08/2019, 11:35. [facility], CT, CT ABDOMEN PELVIS W CON, 06/26/2022, 21:06. [facility], CT, CT ABDOMEN PELVIS W CON, 08/24/2022, 0:28. FINDINGS: Image quality: There is extensive metallic streak artifact from patient's surgical hardware in the spine. Lung bases: There is scarring redemonstrated in the lung bases. There is a small nodule in the right middle lobe measuring up to 0.5 cm which appears unchanged compared to prior studies dating back to 05/25/2020. Heart: Heart is normal in size. ABDOMEN: Liver: No mass lesion. Gallbladder: Within normal limits without calcified gallstones. Biliary ducts: No biliary ductal dilatation. Pancreas: There is moderate fatty atrophy of the pancreas. No pancreatic duct dilatation or discrete pancreatic mass identified.. Spleen: Normal in size. Adrenal Glands: No adrenal nodules. Kidneys and Ureters: No hydronephrosis. There are 2 left renal cysts. Stomach and Bowel: Stomach and small bowel loops are normal in caliber and wall thickness. The appendix is normal. There are a few segments of mild wall thickening throughout the colon suggestive of a mild colitis. Peritoneum: No abnormal intraperitoneal fluid. No free air. Ventral Wall: No hernia. Abdominal Nodes: No retroperitoneal or mesenteric adenopathy by size criteria. Vessels: Aorta and inferior vena cava are normal in size. The celiac, superior mesenteric, and inferior mesenteric arteries appear patent. PELVIS: Pelvic Organs: Unremarkable. Bladder: The urinary bladder is nondistended.. Pelvic Nodes: No enlarged lymph nodes. Miscellaneous: No inguinal hernias are seen. Bones: Extensive postsurgical changes are redemonstrated throughout the visualized thoracic and lumbar spine status post posterior fixation extending to the S1 level as well as bilateral fixation screws traversing the sacroiliac joints. There is a levoscoliosis of the lumbar spine again noted centered at L3. Visualized osseous structures demonstrate no suspicious focal lesions. IMPRESSION: 1. Mild segmental wall thickening throughout the colon suggestive of a mild colitis. 2. Colonic diverticulosis without acute diverticulitis. Dictated by: Fredo Cohen M.D. on 10/17/2022 at 20:36 Approved by: Fredo Cohen M.D. on 10/17/2022 at 20:41
[2022-10-17 19:57] LABS: Procalcitonin 0.05 ng/mL (<0.5)
[2022-10-17] MEDS: cefTRIAXone 1,000 MG in SODIUM CHLORIDE 0.9% 100 ML 200 MG IV (20:07)
[2022-10-17 21:14] LABS: Reflexed Lactate in 2 Hours Y
[2022-10-17 21:59] LABS: Add Manual Diff / Slide Review NO; Basophils Absolute Auto 0 /uL (0-100); Basophils Percent Auto 0.3 % (0-2); Eosinophils Absolute Auto 0 /uL (0-450); Hematocrit 46.8 % (41-53); Hemoglobin 16.3 g/dL (13.5-17.5); Lymphocytes Absolute Auto 400 /uL (1100-4500); Lymphocytes Percent Auto 2.9 % (25-40); Mean Corpuscular HGB Conc 34.7 % (30-36); Mean Corpuscular Hemoglobin 30.4 PG (26-34); Mean Corpuscular Volume 87.7 fL (80-100); Monocytes Absolute Auto 300 /uL (0-900); Monocytes Percent Auto 2.1 % (3-14); Neutrophils Absolute Auto 14400 /uL (1500-7000); Neutrophils Percent Auto 94.7 % (50-75); Platelet Count 255 X10^3/uL (150-400); Red Blood Cell Count 5.34 X10^6/uL (4.5-5.9); Red Cell Distribution Width 13.9 % (11.6-14.8); White Blood Cell Count 15.2 X10^3/uL (4.5-11.0)
[2022-10-17 22:11] LABS: Lactate 2HR (Lactic Acid Rflx) 1.7 mmol/L (0.7-2.1)
[2022-10-17 22:12] LABS: Blood Urea Nitrogen 14 mg/dL (9-20); Calcium 8.8 mg/dL (8.4-10.2); Carbon Dioxide 18 mmol/L (22-32); Chloride 106 mmol/L (98-107); Estimated Glomerular Filt Rate > 60 mL/min (>60); Glucose 106 mg/dL (80-110); HEMOLYSIS < 15 (0-50); Potassium 4.3 mmol/L (3.4-5.1); Sodium 136 mmol/L (137-145)
== END 2022-10-17 23:09 | disposition home or self-care (01) ==
PROVIDERS: Emergency Provider Emergency Medicine; PCP Family Medicine
DX: R10.9 Unspecified abdominal pain (principal); R11.10 Vomiting, unspecified; Z79.899 Other long term (current) drug therapy
CPT/HCPCS: 36415; 74177; 80048; 80053; 81003; 83605; 83690; 84145; 85025; 87040; 87077; 87086; 93005; 93010; 96361; 96365; 96375; 99284; J0696; J1170; J2405; J2765; Q9967

== ENCOUNTER 2024-09-08 18:08 | Emergency (ER) | payer OTHER, MEDICAID, SELFPAY ==
[2024-09-08] VITALS (8 sets, daily range): BP systolic 138–171; BP diastolic 85–105; PULSE 77–105; RESP 16–18; TEMP 36.3–36.4; O2SAT 96–99; BMI 29.2
[2024-09-08 21:04] LABS: Appearance Urine UA CLOUDY; Bilirubin Urine UA NEGATIVE (NEGATIVE); Color Urine UA YELLOW; Glucose Urine UA NEGATIVE (Negative); Ketones Urine UA TRACE (NEGATIVE); Leukocyte Esterase Urine UA 1+ (NEGATIVE); Nitrite Urine UA POSITIVE (Negative); Occult Blood Urine UA 3+ (Negative); Protein Urine UA 2+ (Negative); Specific Gravity Urine UA >=1.030 (1.000-1.035); Urobilinogen Urine UA 0.2 E.U./dL (0.2)
[2024-09-08 21:16] LABS: Bacteria Urine Moderate (10-30); Culture Indicated Urine Specimen Cultured; Mucus Urine 1+ (Negative); RBC Urine 1-5/HPF (0-5/HPF); Squamous Epithelial Cell Urine 0-1 /HPF (0-5/HPF); Urine Volume 10mL (spun); WBC Urine 30-100/HPF (0-5/HPF)
--- NOTE | 2024-09-08 21:55 | ED.MALEGU ---
HPI - Male Genitourinary General Chief complaint: Urogenital-Male Stated complaint: poss UTI Time Seen by Provider: 09/08/24 18:42 Source: patient Mode of arrival: Ambulatory History of Present Illness HPI Narrative: 64-year-old male with a past medical history of neurogenic bladder requiring self catheterization states that he has been having dysuria and foul-smelling urine, states that this has been an ongoing issue for ?a long time but states that it is getting worse. He states that he is currently on Augmentin. He denies any other symptoms at this time Related Data Home Medications Medication Instructions Recorded Confirmed acetaminophen 300 mg-codeine 30 mg 1 tab PO Q4-6H PRN pain 03/12/19 tablet amlodipine 5 mg tablet 5 mg PO DAILY 03/12/19 03/12/19 amoxicillin 875 mg-potassium 1 tab PO BID 03/12/19 03/12/19 clavulanate 125 mg tablet atenolol 50 mg tablet 100 mg PO DAILY 03/12/19 03/12/19 ciprofloxacin HCl 500 mg tablet 500 mg PO BID 03/12/19 03/12/19 metronidazole 500 mg tablet 500 mg PO TID 03/12/19 03/12/19 ondansetron 4 mg disintegrating 4 mg PO Q4-6H PRN Nausea 03/12/19 03/12/19 tablet vancomycin 125 mg capsule 125 mg PO QID 03/12/19 03/12/19 Previous Rx's Medication Instructions Recorded ondansetron 4 mg disintegrating 4 mg PO Q8H #10 tabs 03/18/20 tablet ondansetron 4 mg disintegrating 4 mg PO Q6H PRN nausea and 05/25/20 tablet vomiting #14 tabs amlodipine 5 mg tablet 5 mg PO DAILY #20 tabs 11/29/20 metoclopramide HCl 10 mg tablet 10 mg PO Q6H PRN nausea and 04/16/21 (Reglan) vomiting #20 tabs levofloxacin 750 mg tablet 750 mg PO DAILY #7 tabs 08/24/21 amoxicillin 875 mg-potassium 1 tab PO Q12H #20 tabs 09/04/21 clavulanate 125 mg tablet hyoscyamine sulfate 0.125 mg tablet 0.125 mg PO BID-QID PRN dyspepsia 06/26/22 #20 tabs ondansetron 4 mg disintegrating 4 mg PO TID-QID PRN nausea and 06/26/22 tablet vomiting #10 tabs clotrimazole 10 mg catherine 10 mg mucous membrane 5XD #60 tabs 08/24/22 dicyclomine 20 mg tablet 20 mg PO TID #14 tabs 08/24/22 metoclopramide HCl 10 mg tablet 10 mg PO Q6H PRN nausea and 10/17/22 (Reglan) vomiting #14 tabs amoxicillin 875 mg-potassium 1 tab PO Q12H #20 tabs 10/22/22 clavulanate 125 mg tablet cefuroxime axetil 500 mg tablet 500 mg PO Q12H 7 days #14 tabs 09/08/24 Allergies Allergy/AdvReac Type Severity Reaction Status Date / Time barium iodide Allergy Severe Gastrointestinal Verified 10/17/22 18:41 Upset methadone Allergy Severe Blurry Verified 10/17/22 18:41 Vision Sulfa (Sulfonamide Allergy Severe Rash Verified 10/17/22 18:41 Antibiotics) Review of Systems Review of Systems Narrative: General: Denies fever, chills, weight loss HEENT: Denies headache, eye drainage, eye irritation, head trauma, sore throat, voice change Cardiovascular: Denies any chest pain, palpitations, tachycardia Respiratory: Denies any shortness of breath, cough, wheeze, stridor GI/: Positive dysuria Denies any abdominal pain, nausea, vomiting, diarrhea, bright red blood per rectum, melanotic stools, urinary frequency, urinary retention, hematuria MSK: Denies any joint pain, muscle pains, swelling Skin: Denies any rashes, lesions, discoloration Neuro: Denies any headache, lightheadedness, dizziness, fainting, weakness Psych: Denies SI/HI Patient History Medical History Clostridium difficile infection Fibromyalgia Social History Smoking Status: Never smoker Smoking Status: Never smoker alcohol intake frequency: holidays/special occasions only Exam Narrative Exam Narrative: General: Cooperative, well-developed, not in acute distress HEENT: Normocephalic, atraumatic, PERRLA, normal sclera, eyelids normal Neck: Active full range of motion, atraumatic Chest: Normal to inspection, negative crepitus, no overlying erythema ecchymosis Respiratory: Normal respiratory effort, not in acute respiratory distress, clear to auscultation bilaterally negative cough, wheeze, tachypnea, rhonchi, rales Cardiology: Regular rate rhythm negative gallop, murmur, rubs GI/: No tenderness to palpation, soft, non rigid, normal to inspection, exam deferred MSK: Full active range of motion in all 4 extremities, atraumatic, no tenderness to palpation of any bony prominences Skin: No rashes or lesions noted Neuro: Alert awake oriented x3, moves all 4 extremities spontaneously, cranial nerves intact, able to answer all questions appropriately follows commands appropriately Psych: Cooperative, negative suicidal or homicidal ideations Initial Vital Signs Initial Vital Signs: Vital Signs Temperature 97.4 F L 09/08/24 18:21 Pulse Rate 105 H 09/08/24 18:21 Respiratory Rate 16 09/08/24 18:21 Blood Pressure 138/99 H 09/08/24 18:21 Pulse Oximetry 97 09/08/24 18:21 Oxygen Delivery Method Room Air 09/08/24 18:21 Course Orders Ordered: ED Orders 09/08/24 21:00 Urinalysis and Microscopic Stat Urine Culture Stat Vital Signs Vital signs: Vital Signs - 8 hr 09/08/24 18:21 09/08/24 20:17 09/08/24 20:17 Temperature 97.4 F L Pulse Rate 105 H 94 H Respiratory Rate 16 Blood Pressure 138/99 H 166/105 H Pulse Oximetry 97 97 Oxygen Delivery Method Room Air 09/08/24 20:30 09/08/24 20:30 Temperature Pulse Rate 87 85 Respiratory Rate 16 Blood Pressure 158/101 H Pulse Oximetry 97 99 Oxygen Delivery Method Room Air MDM - Male Genitourinary Differential Diagnosis Differential diagnosis: Likely urinary tract infection Lab Data Labs: Lab Results 09/08/24 Range/Units 21:00 Urine Color Yellow Urine Appearance Cloudy Urine pH 6.0 (4.5-8.0) Ur Specific [place] >=1.030 H (1.000-1.035) Urine Protein 2+ H (Negative) Urine Glucose (UA) Negative (Negative) g/dL Urine Ketones Trace H (NEGATIVE) Urine Occult Blood 3+ H (Negative) Urine Nitrate Positive H (Negative) Urine Bilirubin Negative (NEGATIVE) Urine Urobilinogen 0.2 (0.2) E.U./dL Ur Leukocyte Esterase 1+ H (NEGATIVE) Urine RBC 1-5/hpf (0-5/HPF) Urine WBC 30-100/hpf H (0-5/HPF) Ur Squamous Epith Cells 0-1 /hpf (0-5/HPF) Urine Bacteria Moderate (10-30) H (None) Urine Mucus 1+ H (Negative) Urine Yeast 1-5/hpf H (None) Ur Culture Indicated? Specimen cultured Vol Urine Centrifuged 10ml (spun) MDM Narrative Medical decision making narrative: 64-year-old male with a history of neurogenic bladder coming in for possible urinary tract infection, he states that he has been having issues with dysuria and foul-smelling urine for awhile but he states that symptoms have persistent gotten worse despite being on Augmentin therefore decided come into the ED for further evaluation treatment. Patient's urinalysis consistent with acute urinary tract infection, we will treat patient with antibiotics sent home and instructed follow up with his urologist. He was given strict return precautions verbalized understanding of this and agrees to being discharged home with outpatient follow up Discharge Plan Departure Patient Disposition: Home Clinical Impression: Urinary tract infection Instructions: DI for Urinary Tract Infection (UTI) Activity Restrictions/Additional Instructions: Please follow up with your urologist for your scheduled appointment Stop taking the Augmentin Please read the discharge instructions sheet carefully and bring all papers to all doctor follow-up visits, as it may contain information that your doctor may want to see. Disease processes change and evolve, if your symptoms worsen or if you develop any new symptoms that are concerning to you please return for evaluation. Your evaluation today does not show any evidence of any life-threatening/serious illnesses requiring admission to the hospital or surgery. Please follow-up with your doctor for re-evaluation in approximately 1 day. Seek immediate medical attention for any worrisome symptoms. *If you do not have a primary care provider please contact the [facility] Resource line at [phone]. They will ask some questions about your medical history and help get you set up with a doctor in the community. Prescriptions: New cefuroxime axetil 500 mg tablet 500 mg PO Q12H 7 Days Qty: 14 0RF No Action metronidazole 500 mg tablet 500 mg PO TID acetaminophen-codeine 300-30 mg tablet 1 tab PO Q4-6H PRN (Reason: pain) amlodipine 5 mg tablet 5 mg PO DAILY ciprofloxacin HCl 500 mg tablet 500 mg PO BID vancomycin 125 mg capsule 125 mg PO QID ondansetron 4 mg tablet,disintegrating 4 mg PO Q4-6H PRN (Reason: Nausea) atenolol 50 mg tablet 100 mg PO DAILY amoxicillin-pot clavulanate 875-125 mg tablet 1 tab PO BID ondansetron 4 mg tablet,disintegrating 4 mg PO Q8H Qty: 10 0RF ondansetron 4 mg tablet,disintegrating 4 mg PO Q6H PRN (Reason: nausea and vomiting) Qty: 14 0RF amlodipine 5 mg tablet 5 mg PO DAILY Qty: 20 0RF metoclopramide HCl [Reglan] 10 mg tablet 10 mg PO Q6H PRN (Reason: nausea and vomiting) Qty: 20 0RF amoxicillin-pot clavulanate 875-125 mg tablet 1 tab PO Q12H Qty: 20 0RF hyoscyamine sulfate 0.125 mg tablet 0.125 mg PO BID-QID PRN (Reason: dyspepsia) Qty: 20 0RF ondansetron 4 mg tablet,disintegrating 4 mg PO TID-QID PRN (Reason: nausea and vomiting) Qty: 10 0RF dicyclomine 20 mg tablet 20 mg PO TID Qty: 14 0RF clotrimazole 10 mg catherine 10 mg mucous membrane 5XD Qty: 60 0RF metoclopramide HCl [Reglan] 10 mg tablet 10 mg PO Q6H PRN (Reason: nausea and vomiting) Qty: 14 0RF amoxicillin-pot clavulanate 875-125 mg tablet 1 tab PO Q12H Qty: 20 0RF levofloxacin 750 mg tablet 750 mg PO DAILY Qty: 7 0RF Referrals: Beth Weller INFORMATION TECHNOLOGY ACCOUNT MANAGER [Primary Care Provider] - Stand Alone Forms: Patient Portal/API/Survey
[2024-09-08] MEDS: cefUROXime 250 MG TABLET 500 MG PO (22:12)
== END 2024-09-08 22:14 | disposition home or self-care (01) ==
PROVIDERS: Emergency Provider Student in an Organized Health Care Education/Training Program; PCP Family Medicine
DX: N39.0 Urinary tract infection, site not specified (principal)
CPT/HCPCS: 81001; 87086; 99283

== ENCOUNTER 2024-09-12 08:14 | Emergency (ER) | payer OTHER, MEDICAID, SELFPAY ==
[2024-09-12] VITALS (12 sets, daily range): BP systolic 139–163; BP diastolic 90–103; PULSE 68–92; RESP 20; TEMP 36.6; O2SAT 91–97; BMI 29.2
[2024-09-12 08:47] LABS: Appearance Urine UA CLOUDY; Bilirubin Urine UA NEGATIVE (NEGATIVE); Color Urine UA YELLOW; Glucose Urine UA NEGATIVE (Negative); Ketones Urine UA NEGATIVE (NEGATIVE); Leukocyte Esterase Urine UA TRACE (NEGATIVE); Nitrite Urine UA NEGATIVE (Negative); Occult Blood Urine UA 2+ (Negative); Protein Urine UA 3+ (Negative); Specific Gravity Urine UA >=1.030 (1.000-1.035); Urobilinogen Urine UA 0.2 E.U./dL (0.2); pH Urine UA 5.5 (4.5-8.0)
[2024-09-12 08:56] LABS: Bacteria Urine Many (>30); Culture Indicated Urine Specimen Cultured; RBC Urine 5-10/HPF (0-5/HPF); Squamous Epithelial Cell Urine 1-5 /HPF (0-5/HPF); Urine Volume 10mL (spun); WBC Urine 30-100/HPF (0-5/HPF)
--- NOTE | 2024-09-12 09:03 | ED.MALEGU ---
HPI - Male Genitourinary General Chief complaint: Urogenital-Male Stated complaint: Poss UTI; in pain, was in ER on Time Seen by Provider: 09/12/24 08:56 Source: patient Mode of arrival: Ambulatory History of Present Illness HPI Narrative: Patient is a 64-year-old male history of neurogenic bladder self catheterizing for many decades, chronic back pain only takes cannabis presenting to day with ongoing cloudy urine. Was seen evaluated here 09/08/2024 for UTI symptoms. Urine culture did not show any growth at the time. He reports increasing cloudy dark urine. No fever chills mild abdominal pain minimal nausea no vomiting. No other symptoms. Related Data Home Medications Medication Instructions Recorded Confirmed acetaminophen 300 mg-codeine 30 mg 1 tab PO Q4-6H PRN pain 03/12/19 tablet amlodipine 5 mg tablet 5 mg PO DAILY 03/12/19 03/12/19 amoxicillin 875 mg-potassium 1 tab PO BID 03/12/19 03/12/19 clavulanate 125 mg tablet atenolol 50 mg tablet 100 mg PO DAILY 03/12/19 03/12/19 ciprofloxacin HCl 500 mg tablet 500 mg PO BID 03/12/19 03/12/19 metronidazole 500 mg tablet 500 mg PO TID 03/12/19 03/12/19 ondansetron 4 mg disintegrating 4 mg PO Q4-6H PRN Nausea 03/12/19 03/12/19 tablet vancomycin 125 mg capsule 125 mg PO QID 03/12/19 03/12/19 Previous Rx's Medication Instructions Recorded ondansetron 4 mg disintegrating 4 mg PO Q8H #10 tabs 03/18/20 tablet ondansetron 4 mg disintegrating 4 mg PO Q6H PRN nausea and 05/25/20 tablet vomiting #14 tabs amlodipine 5 mg tablet 5 mg PO DAILY #20 tabs 11/29/20 metoclopramide HCl 10 mg tablet 10 mg PO Q6H PRN nausea and 04/16/21 (Reglan) vomiting #20 tabs levofloxacin 750 mg tablet 750 mg PO DAILY #7 tabs 08/24/21 amoxicillin 875 mg-potassium 1 tab PO Q12H #20 tabs 09/04/21 clavulanate 125 mg tablet hyoscyamine sulfate 0.125 mg tablet 0.125 mg PO BID-QID PRN dyspepsia 02/07/23 #20 tabs ondansetron 4 mg disintegrating 4 mg PO TID-QID PRN nausea and 06/26/22 tablet vomiting #10 tabs clotrimazole 10 mg catherine 10 mg mucous membrane 5XD #60 tabs 08/24/22 dicyclomine 20 mg tablet 20 mg PO TID #14 tabs 08/24/22 metoclopramide HCl 10 mg tablet 10 mg PO Q6H PRN nausea and 10/17/22 (Reglan) vomiting #14 tabs amoxicillin 875 mg-potassium 1 tab PO Q12H #20 tabs 10/22/22 clavulanate 125 mg tablet cefuroxime axetil 500 mg tablet 500 mg PO Q12H 7 days #14 tabs 09/08/24 nitrofurantoin 100 mg PO Q12H 5 days #10 caps 09/12/24 monohydrate/macrocrystals 100 mg capsule (Macrobid) phenazopyridine 100 mg tablet 100 mg PO TID PRN pain 6 doses #6 09/12/24 (Pyridium) tabs Allergies Allergy/AdvReac Type Severity Reaction Status Date / Time barium iodide Allergy Severe Gastrointestinal Verified 10/17/22 18:41 Upset methadone Allergy Severe Blurry Verified 10/17/22 18:41 Vision Sulfa (Sulfonamide Allergy Severe Rash Verified 10/17/22 18:41 Antibiotics) Patient History Medical History Fibromyalgia Clostridium difficile infection alcohol intake frequency: holidays/special occasions only Exam Initial Vital Signs Initial Vital Signs: Vital Signs Temperature 97.8 F 09/12/24 08:33 Pulse Rate 90 09/12/24 08:33 Respiratory Rate 20 09/12/24 08:33 Blood Pressure 139/91 H 09/12/24 08:33 Pulse Oximetry 96 09/12/24 08:33 Oxygen Delivery Method Room Air 09/12/24 08:33 GENERAL: Alert pleasant 64-year-old male and in no acute distress. HEENT: Head atraumatic,EOMI, pupils reactive, face symmetric, moist mucous membranes CARDIOVASCULAR: Regular rate and rhythm without murmurs, rubs or gallops. RESPIRATORY: Breath sounds equal bilaterally, no wheezes rales or rhonchi. ABDOMEN: Soft, nontender. Normoactive bowel sounds all 4 quadrants. No guarding or rebound. : No CVA tenderness EXTREMITIES: Normal range of motion, no clubbing or edema. Neurovascularly intact NEUROLOGICAL: Alert and oriented x4.Normal gait and speech. Cranial nerves II through XII grossly intact. SKIN: Warm, dry, no laceration, no petechiae, no rashes or lesions. Course Orders Ordered: ED Orders 09/12/24 08:34 Urinalysis and Microscopic Stat Urine Culture Stat 09/12/24 09:07 CBC Auto Diff [Complete Blood Count AUTO DIFF] Stat CMP [Comprehensive Metabolic Panel] Stat Lactate (Lactic Acid) Stat 09/12/24 09:44 Blood Culture Stat Discontinued Medications Hydromorphone HCl (Hydromorphone 0.5 Mg Inj) 0.5 mg IV NOW ONE Stop: 09/12/24 09:09 Last Admin: 09/12/24 09:16 Dose: 0.5 mg Documented By: MARJORIE Sodium Chloride (Normal Saline 0.9%) 1,000 mls @ 1,000 mls/hr IV BOLUS ONE Stop: 09/12/24 11:00 Last Infusion: 09/12/24 11:52 Dose: Infused Documented By: Infusion: 09/12/24 11:08 Dose: 999 mls/hr Documented By: Infusion: 09/12/24 10:22 Dose: 799 mls/hr Documented By: Admin: 09/12/24 10:17 Dose: 1,000 mls/hr Documented By: RB Ceftriaxone Sodium 1,000 mg/ (Sodium Chloride) 100 mls @ 200 mls/hr IV NOW ONE Stop: 09/12/24 10:02 Last Infusion: 09/12/24 11:08 Dose: Infused Documented By: Admin: 09/12/24 10:17 Dose: 200 mls/hr Documented By: RB Ondansetron HCl (Ondansetron 4 Mg/2 Ml Inj) 4 mg IV NOW PRN PRN Reason: Nausea And Vomiting Last Admin: 09/12/24 10:17 Dose: 4 mg Documented By: RB Ondansetron HCl (Ondansetron 4 Mg Odt) 4 mg SL NOW PRN PRN Reason: Nausea And Vomiting Vital Signs Vital signs: Vital Signs - 8 hr 09/12/24 08:33 09/12/24 08:36 09/12/24 08:37 Temperature 97.8 F Pulse Rate 90 Respiratory Rate 20 Blood Pressure 139/91 H 139/91 H Pulse Oximetry 96 91 Oxygen Delivery Method Room Air 09/12/24 08:37 09/12/24 09:00 09/12/24 09:01 Temperature Pulse Rate 91 H 92 H Respiratory Rate Blood Pressure 160/97 H Pulse Oximetry 97 95 Oxygen Delivery Method 09/12/24 09:01 09/12/24 09:30 09/12/24 09:30 Temperature Pulse Rate 88 88 Respiratory Rate Blood Pressure 154/94 H Pulse Oximetry 93 97 Oxygen Delivery Method 09/12/24 10:00 09/12/24 10:00 09/12/24 10:30 Temperature Pulse Rate 87 83 Respiratory Rate Blood Pressure 163/103 H Pulse Oximetry 95 96 Oxygen Delivery Method 09/12/24 10:32 09/12/24 10:32 09/12/24 11:00 Temperature Pulse Rate 82 Respiratory Rate Blood Pressure 148/90 H 151/97 H Pulse Oximetry 96 Oxygen Delivery Method 09/12/24 11:00 09/12/24 11:30 09/12/24 11:30 Temperature Pulse Rate 80 71 Respiratory Rate Blood Pressure 163/91 H Pulse Oximetry 94 95 Oxygen Delivery Method 09/12/24 12:00 09/12/24 12:00 Temperature Pulse Rate 68 Respiratory Rate Blood Pressure 144/92 H Pulse Oximetry 96 Oxygen Delivery Method MDM - Male Genitourinary Lab Data 09/12/24 09:07 09/12/24 09:07 Labs: Lab Results 09/12/24 09/12/24 09/12/24 Range/Units 08:34 09:07 11:23 WBC 10.0 (4.5-11.0) X10^3/uL RBC 4.85 (4.5-5.9) X10^6/uL Hgb 15.2 (13.5-17.5) g/dL Hct 43.7 (41-53) % MCV 90.2 (80-100) fL MCH 31.4 (26-34) PG MCHC 34.8 (30-36) % RDW 13.7 (11.6-14.8) % Plt Count 266 (150-400) X10^3/uL Neut % (Auto) 84.9 H (50-75) % Lymph % (Auto) 9.1 L (25-40) % [place] % (Auto) 4.5 (3-14) % Eos % (Auto) 1.1 L (2-4) % Baso % (Auto) 0.4 (0-2) % Neut # (Auto) 8500 H (6185-6980) /uL Lymph # (Auto) 900 L (5216-3660) /uL [place] # (Auto) 500 (0-900) /uL Eos # (Auto) 100 (0-450) /uL Baso # (Auto) 0 (0-100) /uL Sodium 138 (137-145) mmol/L Potassium 4.3 (3.4-5.1) mmol/L Chloride 104 (98-107) mmol/L Carbon Dioxide 22 (22-32) mmol/L BUN 16 (9-20) mg/dL Creatinine 0.96 (0.66-1.25) mg/dL Estimated GFR > 60 (>60) mL/min BUN/Creatinine Ratio 16.7 (6-22) Glucose 140 H (70-99) mg/dL Lactate 2.3 H 1.2 (0.7-2.1) mmol/L Calcium 9.7 (8.4-10.2) mg/dL Total Bilirubin 1.0 (0.2-1.3) mg/dL AST 29 (17-59) IU/L ALT 31 (<50) IU/L Alkaline Phosphatase 60 (38-126) U/L Total Protein 7.2 (6.3-8.2) g/dL Albumin 4.5 (3.5-5.0) g/dL Globulin 2.7 (1.7-4.1) g/dL Albumin/Globulin Ratio 1.7 (1.0-2.8) Urine Color Yellow Urine Appearance Cloudy Urine pH 5.5 (4.5-8.0) Ur Specific [place] >=1.030 H (1.000-1.035) Urine Protein 3+ H (Negative) Urine Glucose (UA) Negative (Negative) g/dL Urine Ketones Negative (NEGATIVE) Urine Occult Blood 2+ H (Negative) Urine Nitrate Negative (Negative) Urine Bilirubin Negative (NEGATIVE) Urine Urobilinogen 0.2 (0.2) E.U./dL Ur Leukocyte Esterase Trace H (NEGATIVE) Urine RBC 5-10/hpf H (0-5/HPF) Urine WBC 30-100/hpf H (0-5/HPF) Ur Squamous Epith Cells 1-5 /hpf (0-5/HPF) Urine Bacteria Many (>30) H (None) Ur Culture Indicated? Specimen cultured Vol Urine Centrifuged 10ml (spun) MDM Narrative Medical decision making narrative: Patient is a 64-year-old male history of self catheterization UTIs presenting to day with painful frequent urination and cloudy urine. He was seen evaluated here 09/08/2024 or similar symptoms. Urine culture did not show any growth at that time. Urinalysis today does show cloudy urine with bacteria leukocytes and blood negative for nitrates. WBC shows no leukocytosis Lactate 2.3 with repeat 1.2 Electrolytes and kidney function within normal limits Patient was given 1 L of fluid along with 1 dose of Rocephin. He reports that Cipro does not work for him he is allergic to Bactrim. He has previously been seen [facility] for things but unable to pull up records. Are records report that he was not really been here since 2022 and did not show any evidence of drug resistance at the time. We will go ahead and try and start him on Macrobid. No real sign of sepsis at this time. Discharge Plan Departure Patient Disposition: Home Clinical Impression: Urinary tract infection Instructions: DI for Urinary Tract Infection (UTI) Activity Restrictions/Additional Instructions: *You have been diagnosed with UTI *What to do: At this time it takes about 2-3 days for the culture to grow. We may call you and change up your antibiotic *Continue to take medications as directed Macrobid 100 mg twice a day for 7 days Pyridium 100 mg every 8 hours only if needed for painful urination *Follow up with your primary care provider in 2-3 days or call [phone] *Return to ER if you should have increasing abdominal pain bloody urine fever confusion or any new, worsening or concerning symptoms Prescriptions: New phenazopyridine [Pyridium] 100 mg tablet 100 mg PO TID PRN (Reason: pain) Qty: 6 0RF nitrofurantoin monohyd/m-cryst [Macrobid] 100 mg capsule 100 mg PO Q12H 5 Days Qty: 10 0RF Rx Instructions: must administer with a meal/food No Action metronidazole 500 mg tablet 500 mg PO TID acetaminophen-codeine 300-30 mg tablet 1 tab PO Q4-6H PRN (Reason: pain) amlodipine 5 mg tablet 5 mg PO DAILY ciprofloxacin HCl 500 mg tablet 500 mg PO BID vancomycin 125 mg capsule 125 mg PO QID ondansetron 4 mg tablet,disintegrating 4 mg PO Q4-6H PRN (Reason: Nausea) atenolol 50 mg tablet 100 mg PO DAILY amoxicillin-pot clavulanate 875-125 mg tablet 1 tab PO BID ondansetron 4 mg tablet,disintegrating 4 mg PO Q8H Qty: 10 0RF ondansetron 4 mg tablet,disintegrating 4 mg PO Q6H PRN (Reason: nausea and vomiting) Qty: 14 0RF amlodipine 5 mg tablet 5 mg PO DAILY Qty: 20 0RF metoclopramide HCl [Reglan] 10 mg tablet 10 mg PO Q6H PRN (Reason: nausea and vomiting) Qty: 20 0RF amoxicillin-pot clavulanate 875-125 mg tablet 1 tab PO Q12H Qty: 20 0RF hyoscyamine sulfate 0.125 mg tablet 0.125 mg PO BID-QID PRN (Reason: dyspepsia) Qty: 20 0RF ondansetron 4 mg tablet,disintegrating 4 mg PO TID-QID PRN (Reason: nausea and vomiting) Qty: 10 0RF dicyclomine 20 mg tablet 20 mg PO TID Qty: 14 0RF clotrimazole 10 mg catherine 10 mg mucous membrane 5XD Qty: 60 0RF metoclopramide HCl [Reglan] 10 mg tablet 10 mg PO Q6H PRN (Reason: nausea and vomiting) Qty: 14 0RF amoxicillin-pot clavulanate 875-125 mg tablet 1 tab PO Q12H Qty: 20 0RF cefuroxime axetil 500 mg tablet 500 mg PO Q12H 7 Days Qty: 14 0RF levofloxacin 750 mg tablet 750 mg PO DAILY Qty: 7 0RF Referrals: Beth Weller ARNP [Primary Care Provider] - Stand Alone Forms: Patient Portal/API/Survey
[2024-09-12] MEDS: HYDROMORPHONE 0.5 MG INJ IV (09:16)
[2024-09-12 09:18] LABS: Add Manual Diff / Slide Review NO; Basophils Absolute Auto 0 /uL (0-100); Basophils Percent Auto 0.4 % (0-2); Eosinophils Absolute Auto 100 /uL (0-450); Eosinophils Percent Auto 1.1 % (2-4); Hematocrit 43.7 % (41-53); Hemoglobin 15.2 g/dL (13.5-17.5); Lymphocytes Absolute Auto 900 /uL (1100-4500); Lymphocytes Percent Auto 9.1 % (25-40); Mean Corpuscular HGB Conc 34.8 % (30-36); Mean Corpuscular Hemoglobin 31.4 PG (26-34); Mean Corpuscular Volume 90.2 fL (80-100); Monocytes Absolute Auto 500 /uL (0-900); Monocytes Percent Auto 4.5 % (3-14); Neutrophils Absolute Auto 8500 /uL (1500-7000); Neutrophils Percent Auto 84.9 % (50-75); Platelet Count 266 X10^3/uL (150-400); Red Blood Cell Count 4.85 X10^6/uL (4.5-5.9); Red Cell Distribution Width 13.7 % (11.6-14.8)
[2024-09-12 09:32] LABS: Alanine Aminotransferase 31 IU/L (<50); Albumin 4.5 g/dL (3.5-5.0); Albumin Globulin Ratio 1.7 (1.0-2.8); Alkaline Phosphatase 60 U/L (38-126); Aspartate Aminotransferase 29 IU/L (17-59); BUN Creatinine Ratio 16.7 (6-22); Blood Urea Nitrogen 16 mg/dL (9-20); Calcium 9.7 mg/dL (8.4-10.2); Carbon Dioxide 22 mmol/L (22-32); Chloride 104 mmol/L (98-107); Estimated Glomerular Filt Rate > 60 mL/min (>60); Globulin 2.7 g/dL (1.7-4.1); Glucose 140 mg/dL (70-99); HEMOLYSIS < 15 (0-50); Potassium 4.3 mmol/L (3.4-5.1); Sodium 138 mmol/L (137-145); Total Protein 7.2 g/dL (6.3-8.2)
[2024-09-12 09:33] LABS: Lactate (Lactic Acid) 2.3 mmol/L (0.7-2.1)
[2024-09-12] MEDS: cefTRIAXone 1,000 MG in SODIUM CHLORIDE 0.9% 100 ML 200 MG IV (10:17)
[2024-09-12] MEDS: SODIUM CHLORIDE 0.9% 1,000 ML 1000 ML IV (10:17)
[2024-09-12] MEDS: ONDANSETRON 4 MG/2 ML INJ IV (10:17)
--- NOTE | 2024-09-12 10:25 | PC.NURSE ---
Normal saline infusion moved to 799ml/hr due to max of 999ml/hr and antibiotic running at 200ml/hr on same line.
[2024-09-12 10:51] LABS: Reflexed Lactate in 2 Hours Y
[2024-09-12 11:42] LABS: Lactate 2HR (Lactic Acid Rflx) 1.2 mmol/L (0.7-2.1)
== END 2024-09-12 12:12 | disposition home or self-care (01) ==
PROVIDERS: Emergency Provider Emergency Medicine; PCP Family Medicine
DX: N39.0 Urinary tract infection, site not specified (principal); F12.90 Cannabis use, unspecified, uncomplicated
CPT/HCPCS: 36415; 80053; 81001; 83605; 85025; 87040; 87086; 96361; 96365; 96375; 99284; J0696; J1171; J2405

== ENCOUNTER 2024-10-08 08:40 | Emergency (ER) | payer OTHER, MEDICAID, SELFPAY ==
[2024-10-08] VITALS (21 sets, daily range): BP systolic 126–210; BP diastolic 73–127; PULSE 76–106; RESP 10–22; TEMP 37.1; O2SAT 91–99; BMI 28.3
--- NOTE | 2024-10-08 09:19 | EKG_ITS ---
[place] [id number] [address] [place] [id number] Test Date: 2024-10-08 Pat Name: Huang Leahy Department: [facility] Room: Gender: Male Heavy Mobile Equipment Repairer: JENNIFER : 1960 Requested By: Order Number: [id number] Reading MD: Raymond Friedman Measurements Intervals [place] Rate: 76 P: 32 [place]: 164 QRS: 1 QRSD: 82 T: 75 QT: 420 QTc: 472 Interpretive Statements Poor data quality, interpretation may be adversely affected Normal sinus rhythm with sinus arrhythmia Electronically Signed On 10-09-2024 19:07:43 PDT by Raymond Friedman
[2024-10-08] MEDS: ONDANSETRON 4 MG/2 ML INJ IV (09:29)
[2024-10-08 09:37] LABS: Add Manual Diff / Slide Review NO; Basophils Absolute Auto 0 /uL (0-100); Basophils Percent Auto 0.1 % (0-2); Eosinophils Absolute Auto 0 /uL (0-450); Eosinophils Percent Auto 0.1 % (2-4); Hematocrit 46.2 % (41-53); Hemoglobin 15.7 g/dL (13.5-17.5); Lymphocytes Absolute Auto 200 /uL (1100-4500); Lymphocytes Percent Auto 2.1 % (25-40); Mean Corpuscular HGB Conc 33.9 % (30-36); Mean Corpuscular Hemoglobin 30.4 PG (26-34); Mean Corpuscular Volume 89.7 fL (80-100); Monocytes Absolute Auto 200 /uL (0-900); Monocytes Percent Auto 1.4 % (3-14); Neutrophils Absolute Auto 10800 /uL (1500-7000); Neutrophils Percent Auto 96.3 % (50-75); Platelet Count 285 X10^3/uL (150-400); Red Blood Cell Count 5.15 X10^6/uL (4.5-5.9); Red Cell Distribution Width 14.4 % (11.6-14.8); White Blood Cell Count 11.2 X10^3/uL (4.5-11.0)
[2024-10-08 09:49] LABS: Alanine Aminotransferase 43 IU/L (<50); Albumin 4.8 g/dL (3.5-5.0); Albumin Globulin Ratio 1.5 (1.0-2.8); Alkaline Phosphatase 71 U/L (38-126); Aspartate Aminotransferase 42 IU/L (17-59); Blood Urea Nitrogen 16 mg/dL (9-20); Calcium 9.7 mg/dL (8.4-10.2); Carbon Dioxide 17 mmol/L (22-32); Chloride 107 mmol/L (98-107); Estimated Glomerular Filt Rate > 60 mL/min (>60); Globulin 3.1 g/dL (1.7-4.1); Glucose 204 mg/dL (70-99); HEMOLYSIS 24 (0-50); Lipase 31 U/L (23-300); Potassium 4.5 mmol/L (3.4-5.1); Sodium 138 mmol/L (137-145); Total Protein 7.9 g/dL (6.3-8.2)
--- NOTE | 2024-10-08 10:19 | PC.NURSE ---
Patient dry heaving, not bringing up much fluid followed by coughing fits. No relief with zofran dilaudid usually works but takes usually two doses, it is the pain that is causing it. We have been through this before Dr Barrow
--- NOTE | 2024-10-08 11:00 | ED_ITS ---
HPI - Abdominal Pain <Kayla Smith PA-C - Last Filed: 10/08/24 16:28> General Chief Complaint: Abdominal Pain Stated Complaint: N/V Stomach pain Time Seen by Provider: 10/08/24 10:59 Source: patient Mode of arrival: Family Vehicle History of Present Illness HPI narrative: Mr. Leahy is a pleasant 64-year-old male with a past medical history of chronic back pain, neurogenic bladder with self catheterization for many decades, diverticulosis, frequent UTIs who presents to the emergency department with his significant other for abdominal pain, nausea, vomiting, constipation for approximately 10 hours. Patient's symptoms started after eating dinner, his is not experiencing similar symptoms. He has frequent retching and dry heaving not improved with Zofran in the ED. States that he has experienced similar symptoms in the past and they were the results of a UTI or diverticulitis and that he typically requires Dilaudid to control his pain and vomiting. His only home medication is cannabis. He denies any flu-like symptoms precipitating his symptoms, fevers, chills, chest pain, shortness of breath, headache. Does not notice any dark or cloudy urine. He has not been able to keep down any food or fluids for the last 10 hours. Declines alcohol use. Related Data Home Medications Medication Instructions Recorded Confirmed acetaminophen 300 mg-codeine 30 mg 1 tab PO Q4-6H PRN pain 03/12/19 tablet amlodipine 5 mg tablet 5 mg PO DAILY 03/12/19 03/12/19 amoxicillin 875 mg-potassium 1 tab PO BID 03/12/19 03/12/19 clavulanate 125 mg tablet atenolol 50 mg tablet 100 mg PO DAILY 03/12/19 03/12/19 ciprofloxacin HCl 500 mg tablet 500 mg PO BID 03/12/19 03/12/19 metronidazole 500 mg tablet 500 mg PO TID 03/12/19 03/12/19 ondansetron 4 mg disintegrating 4 mg PO Q4-6H PRN Nausea 03/12/19 03/12/19 tablet vancomycin 125 mg capsule 125 mg PO QID 03/12/19 03/12/19 Previous Rx's Medication Instructions Recorded ondansetron 4 mg disintegrating 4 mg PO Q8H #10 tabs 03/18/20 tablet ondansetron 4 mg disintegrating 4 mg PO Q6H PRN nausea and 05/25/20 tablet vomiting #14 tabs amlodipine 5 mg tablet 5 mg PO DAILY #20 tabs 11/29/20 metoclopramide HCl 10 mg tablet 10 mg PO Q6H PRN nausea and 04/16/21 (Reglan) vomiting #20 tabs levofloxacin 750 mg tablet 750 mg PO DAILY #7 tabs 08/24/21 amoxicillin 875 mg-potassium 1 tab PO Q12H #20 tabs 09/04/21 clavulanate 125 mg tablet hyoscyamine sulfate 0.125 mg tablet 0.125 mg PO BID-QID PRN dyspepsia 06/26/22 #20 tabs ondansetron 4 mg disintegrating 4 mg PO TID-QID PRN nausea and 06/26/22 tablet vomiting #10 tabs clotrimazole 10 mg catherine 10 mg mucous membrane 5XD #60 tabs 08/24/22 dicyclomine 20 mg tablet 20 mg PO TID #14 tabs 08/24/22 metoclopramide HCl 10 mg tablet 10 mg PO Q6H PRN nausea and 10/17/22 (Reglan) vomiting #14 tabs amoxicillin 875 mg-potassium 1 tab PO Q12H #20 tabs 10/22/22 clavulanate 125 mg tablet phenazopyridine 100 mg tablet 100 mg PO TID PRN pain 6 doses #6 09/12/24 (Pyridium) tabs ondansetron 4 mg disintegrating 4 mg PO Q8H PRN nausea and 10/08/24 tablet vomiting #20 tabs Allergies Allergy/AdvReac Type Severity Reaction Status Date / Time barium iodide Allergy Severe Gastrointestinal Verified 10/08/24 09:20 Upset methadone Allergy Severe Blurry Verified 10/08/24 09:20 Vision Sulfa (Sulfonamide Allergy Severe Rash Verified 10/08/24 09:20 Antibiotics) Review of Systems <Kayla Smith PA-C - Last Filed: 10/08/24 16:28> Review of Systems ROS Unobtainable: All systems reviewed & are unremarkable except as noted in HPI and below Patient History <Kayla Smith PA-C - Last Filed: 10/08/24 16:28> Medical History Fibromyalgia Clostridium difficile infection alcohol intake frequency: holidays/special occasions only Exam <Kayla Smith PA-C - Last Filed: 10/08/24 16:28> Narrative Exam Narrative: GENERAL: 64 year old patient appears stated age. Ill-appearing, lying on left side, dry heaving. HEAD: Atraumatic. Normocephalic. EYES: No scleral icterus. No injection or drainage. NECK: Trachea midline. Cervical ROM intact. CARDIOVASCULAR: Regular rate and rhythm. RESPIRATORY: ?Nonlabored respirations. ?Speaking in clear, full sentences. ?Clear to auscultation. GASTROINTESTINAL: Abdomen protuberant but soft, diffuse nonfocal tenderness. NEURO: AOx3. ?Clear speech. ?Moves all 4 extremities appropriately. Prefers for his significant other to provide majority of history. SKIN: No rash or erythema of visible areas Initial Vital Signs Initial Vital Signs: Vital Signs Pulse Rate 89 10/08/24 09:06 Pulse Oximetry 99 10/08/24 09:06 <Clifford Mcmillan MD - Last Filed: 10/08/24 18:23> Initial Vital Signs Initial Vital Signs: Vital Signs Pulse Rate 89 10/08/24 09:06 Pulse Oximetry 99 10/08/24 09:06 Course <Kayla Smith PA-C - Last Filed: 10/08/24 16:28> Orders Ordered: ED Orders 10/08/24 09:29 Complete Blood Count AUTO DIFF Stat Comprehensive Metabolic Panel Stat Lipase Stat 10/08/24 11:10 CT abdomen pelvis w con Stat 10/08/24 11:54 Lactate (Lactic Acid) Stat 10/08/24 13:59 Urine Culture Stat Urine Microscopic Stat Discontinued Medications Hydromorphone HCl (Hydromorphone 0.5 Mg Inj) 0.5 mg IV NOW ONE Stop: 10/08/24 11:11 Last Admin: 10/08/24 11:20 Dose: 0.5 mg Documented By: JENNIFER Hydromorphone HCl (Hydromorphone 0.5 Mg Inj) 0.5 mg IV NOW ONE Stop: 10/08/24 12:07 Last Admin: 10/08/24 12:15 Dose: 0.5 mg Documented By: Sodium Chloride (Normal Saline 0.9%) 1,000 mls @ 1,000 mls/hr IV BOLUS ONE Stop: 10/08/24 12:09 Last Infusion: 10/08/24 14:04 Dose: Infused Documented By: Infusion: 10/08/24 12:39 Dose: 1,000 mls/hr Documented By: Infusion: 10/08/24 11:52 Dose: 0 mls/hr Documented By: Admin: 10/08/24 11:22 Dose: 1,000 mls/hr Documented By: JENNIFER Sodium Chloride (Normal Saline 0.9%) 1,000 mls @ 1,000 mls/hr IV BOLUS ONE Stop: 10/08/24 13:20 Last Infusion: 10/08/24 14:53 Dose: Infused Documented By: Admin: 10/08/24 12:38 Dose: 1,000 mls/hr Documented By: Ondansetron HCl (Ondansetron 4 Mg/2 Ml Inj) 4 mg IV NOW PRN PRN Reason: Nausea And Vomiting Last Admin: 10/08/24 09:29 Dose: 4 mg Documented By: JENNIFER Ondansetron HCl (Ondansetron 4 Mg Odt) 4 mg PO NOW PRN PRN Reason: Nausea And Vomiting Vital Signs Vital signs: Vital Signs - 8 hr 10/08/24 10:30 10/08/24 10:30 10/08/24 11:00 Temperature Pulse Rate 89 96 H Respiratory Rate Blood Pressure 178/98 H Pulse Oximetry 97 Oxygen Delivery Method 10/08/24 11:00 10/08/24 11:30 10/08/24 11:30 Temperature Pulse Rate 80 Respiratory Rate 12 Blood Pressure 186/117 H 189/102 H Pulse Oximetry 99 Oxygen Delivery Method 10/08/24 12:05 10/08/24 12:27 10/08/24 12:27 Temperature Pulse Rate 92 H 106 H Respiratory Rate 22 13 Blood Pressure 155/79 H Pulse Oximetry 96 Oxygen Delivery Method 10/08/24 12:30 10/08/24 12:30 10/08/24 13:00 Temperature Pulse Rate 101 H 100 H Respiratory Rate 10 L 20 Blood Pressure 126/73 Pulse Oximetry 96 91 Oxygen Delivery Method 10/08/24 13:00 10/08/24 13:30 10/08/24 13:30 Temperature Pulse Rate 97 H Respiratory Rate 20 Blood Pressure 143/82 H 136/82 Pulse Oximetry 97 Oxygen Delivery Method 10/08/24 14:00 10/08/24 14:00 10/08/24 14:30 Temperature Pulse Rate 90 83 Respiratory Rate Blood Pressure 168/95 H Pulse Oximetry 96 98 Oxygen Delivery Method 10/08/24 14:30 10/08/24 15:00 10/08/24 15:00 Temperature Pulse Rate 83 Respiratory Rate Blood Pressure 166/97 H 150/98 H Pulse Oximetry 98 Oxygen Delivery Method 10/08/24 15:30 10/08/24 15:30 10/08/24 16:00 Temperature Pulse Rate 81 Respiratory Rate Blood Pressure 142/90 H 146/94 H Pulse Oximetry 98 Oxygen Delivery Method 10/08/24 16:00 10/08/24 16:30 10/08/24 16:32 Temperature Pulse Rate 76 83 80 Respiratory Rate Blood Pressure Pulse Oximetry 98 97 97 Oxygen Delivery Method 10/08/24 16:32 Temperature 98.8 F Pulse Rate Respiratory Rate Blood Pressure 162/89 H Pulse Oximetry Oxygen Delivery Method Room Air <Clifford Mcmillan MD - Last Filed: 10/08/24 18:23> Orders Ordered: ED Orders 10/08/24 09:29 Complete Blood Count AUTO DIFF Stat Comprehensive Metabolic Panel Stat Lipase Stat 10/08/24 11:10 CT abdomen pelvis w con Stat 10/08/24 11:54 Lactate (Lactic Acid) Stat 10/08/24 13:59 Urine Culture Stat Urine Microscopic Stat Discontinued Medications Hydromorphone HCl (Hydromorphone 0.5 Mg Inj) 0.5 mg IV NOW ONE Stop: 10/08/24 11:11 Last Admin: 10/08/24 11:20 Dose: 0.5 mg Documented By: JENNIFER Hydromorphone HCl (Hydromorphone 0.5 Mg Inj) 0.5 mg IV NOW ONE Stop: 10/08/24 12:07 Last Admin: 10/08/24 12:15 Dose: 0.5 mg Documented By: Sodium Chloride (Normal Saline 0.9%) 1,000 mls @ 1,000 mls/hr IV BOLUS ONE Stop: 10/08/24 12:09 Last Infusion: 10/08/24 14:04 Dose: Infused Documented By: Infusion: 10/08/24 12:39 Dose: 1,000 mls/hr Documented By: Infusion: 10/08/24 11:52 Dose: 0 mls/hr Documented By: Admin: 10/08/24 11:22 Dose: 1,000 mls/hr Documented By: JENNIFER Sodium Chloride (Normal Saline 0.9%) 1,000 mls @ 1,000 mls/hr IV BOLUS ONE Stop: 10/08/24 13:20 Last Infusion: 10/08/24 14:53 Dose: Infused Documented By: Admin: 10/08/24 12:38 Dose: 1,000 mls/hr Documented By: Ondansetron HCl (Ondansetron 4 Mg/2 Ml Inj) 4 mg IV NOW PRN PRN Reason: Nausea And Vomiting Last Admin: 10/08/24 09:29 Dose: 4 mg Documented By: EJNNIFER Ondansetron HCl (Ondansetron 4 Mg Odt) 4 mg PO NOW PRN PRN Reason: Nausea And Vomiting Vital Signs Vital signs: Vital Signs - 8 hr 10/08/24 10:30 10/08/24 10:30 10/08/24 11:00 Temperature Pulse Rate 89 96 H Respiratory Rate Blood Pressure 178/98 H Pulse Oximetry 97 Oxygen Delivery Method 10/08/24 11:00 10/08/24 11:30 10/08/24 11:30 Temperature Pulse Rate 80 Respiratory Rate 12 Blood Pressure 186/117 H 189/102 H Pulse Oximetry 99 Oxygen Delivery Method 10/08/24 12:05 10/08/24 12:27 10/08/24 12:27 Temperature Pulse Rate 92 H 106 H Respiratory Rate 22 13 Blood Pressure 155/79 H Pulse Oximetry 96 Oxygen Delivery Method 10/08/24 12:30 10/08/24 12:30 10/08/24 13:00 Temperature Pulse Rate 101 H 100 H Respiratory Rate 10 L 20 Blood Pressure 126/73 Pulse Oximetry 96 91 Oxygen Delivery Method 10/08/24 13:00 10/08/24 13:30 10/08/24 13:30 Temperature Pulse Rate 97 H Respiratory Rate 20 Blood Pressure 143/82 H 136/82 Pulse Oximetry 97 Oxygen Delivery Method 10/08/24 14:00 10/08/24 14:00 10/08/24 14:30 Temperature Pulse Rate 90 83 Respiratory Rate Blood Pressure 168/95 H Pulse Oximetry 96 98 Oxygen Delivery Method 10/08/24 14:30 10/08/24 15:00 10/08/24 15:00 Temperature Pulse Rate 83 Respiratory Rate Blood Pressure 166/97 H 150/98 H Pulse Oximetry 98 Oxygen Delivery Method 10/08/24 15:30 10/08/24 15:30 10/08/24 16:00 Temperature Pulse Rate 81 Respiratory Rate Blood Pressure 142/90 H 146/94 H Pulse Oximetry 98 Oxygen Delivery Method 10/08/24 16:00 10/08/24 16:30 10/08/24 16:32 Temperature Pulse Rate 76 83 80 Respiratory Rate Blood Pressure Pulse Oximetry 98 97 97 Oxygen Delivery Method 10/08/24 16:32 Temperature 98.8 F Pulse Rate Respiratory Rate Blood Pressure 162/89 H Pulse Oximetry Oxygen Delivery Method Room Air MDM - Abdominal Pain <Kayla Smith PA-C - Last Filed: 10/08/24 16:28> Medical Records Attestation: I reviewed the patient's medical records. Lab Data 10/08/24 09:29 10/08/24 09:29 Labs: Lab Results 10/08/24 10/08/24 10/08/24 Range/Units 09:29 11:54 13:59 WBC 11.2 H (4.5-11.0) X10^3/uL RBC 5.15 (4.5-5.9) X10^6/uL Hgb 15.7 (13.5-17.5) g/dL Hct 46.2 (41-53) % MCV 89.7 (80-100) fL MCH 30.4 (26-34) PG MCHC 33.9 (30-36) % RDW 14.4 (11.6-14.8) % Plt Count 285 (150-400) X10^3/uL Neut % (Auto) 96.3 H (50-75) % Lymph % (Auto) 2.1 L (25-40) % Winston % (Auto) 1.4 L (3-14) % Eos % (Auto) 0.1 L (2-4) % Baso % (Auto) 0.1 (0-2) % Neut # (Auto) 36035 H (4915-8837) /uL Lymph # (Auto) 200 L (5627-3673) /uL Winston # (Auto) 200 (0-900) /uL Eos # (Auto) 0 (0-450) /uL Baso # (Auto) 0 (0-100) /uL Sodium 138 (137-145) mmol/L Potassium 4.5 (3.4-5.1) mmol/L Chloride 107 (98-107) mmol/L Carbon Dioxide 17 L (22-32) mmol/L BUN 16 (9-20) mg/dL Creatinine 0.84 (0.66-1.25) mg/dL Estimated GFR > 60 (>60) mL/min BUN/Creatinine Ratio 19.0 (6-22) Glucose 204 H (70-99) mg/dL Lactate 2.9 H (0.7-2.1) mmol/L Calcium 9.7 (8.4-10.2) mg/dL Total Bilirubin 2.0 H (0.2-1.3) mg/dL AST 42 (17-59) IU/L ALT 43 (<50) IU/L Alkaline Phosphatase 71 (38-126) U/L Total Protein 7.9 (6.3-8.2) g/dL Albumin 4.8 (3.5-5.0) g/dL Globulin 3.1 (1.7-4.1) g/dL Albumin/Globulin Ratio 1.5 (1.0-2.8) Lipase 31 (23-300) U/L Urine RBC None seen (0-5/HPF) Urine WBC 1-5/hpf (0-5/HPF) Ur Squamous Epith Cells None seen (0-5/HPF) Urine Bacteria None seen (None) Urine Yeast 0-1/hpf (None) Ur Culture Indicated? Specimen cultured Vol Urine Centrifuged 10ml (spun) 10/08/24 Range/Units 15:00 WBC (4.5-11.0) X10^3/uL RBC (4.5-5.9) X10^6/uL Hgb (13.5-17.5) g/dL Hct (41-53) % MCV (80-100) fL MCH (26-34) PG MCHC (30-36) % RDW (11.6-14.8) % Plt Count (150-400) X10^3/uL Neut % (Auto) (50-75) % Lymph % (Auto) (25-40) % Winston % (Auto) (3-14) % Eos % (Auto) (2-4) % Baso % (Auto) (0-2) % Neut # (Auto) (6367-2840) /uL Lymph # (Auto) (3225-2317) /uL Winston # (Auto) (0-900) /uL Eos # (Auto) (0-450) /uL Baso # (Auto) (0-100) /uL Sodium (137-145) mmol/L Potassium (3.4-5.1) mmol/L Chloride (98-107) mmol/L Carbon Dioxide (22-32) mmol/L BUN (9-20) mg/dL Creatinine (0.66-1.25) mg/dL Estimated GFR (>60) mL/min BUN/Creatinine Ratio (6-22) Glucose (70-99) mg/dL Lactate 1.4 (0.7-2.1) mmol/L Calcium (8.4-10.2) mg/dL Total Bilirubin (0.2-1.3) mg/dL AST (17-59) IU/L ALT (<50) IU/L Alkaline Phosphatase (38-126) U/L Total Protein (6.3-8.2) g/dL Albumin (3.5-5.0) g/dL Globulin (1.7-4.1) g/dL Albumin/Globulin Ratio (1.0-2.8) Lipase (23-300) U/L Urine RBC (0-5/HPF) Urine WBC (0-5/HPF) Ur Squamous Epith Cells (0-5/HPF) Urine Bacteria (None) Urine Yeast (None) Ur Culture Indicated? Vol Urine Centrifuged Point of care testing: Urine Dip Bedside Urine Glucose Negative Bedside Urine Bilirubin - Negative Bedside Urine Ketone - Negative Urine Specific [place] 1.010 Bedside Urine Occult Blood - Negative Bedside Urine pH 5.5 Bedside Urine Protein +/- 15 Bedside Urine Urobilinogen - Negative Bedside Urine Nitrite - Negative Bedside Urine Leukocytes - Negative Esterase Imaging Data CT scan - abdomen/pelvis: Radiologist's Impression: PROCEDURE: CT ABDOMEN PELVIS W CON INDICATIONS: diffuse abd pain; N/V constipation TECHNIQUE: After the administration of intravenous contrast, axial sections acquired from the lung bases to the pubic symphysis. Coronal and sagittal reformats were performed. For radiation dose reduction, the following was used: automated exposure control, adjustment of mA and/or kV according to patient size. COMPARISON: [facility], CT, CT ABDOMEN PELVIS W CON, 10/17/2022, 19:41. FINDINGS: Image quality: Diagnostic. Lower Chest: Lung bases are clear. Distal esophagus is mildly distended and fluid-filled. ABDOMEN: Liver: No solid mass. Gallbladder: Layering gallstone without gallbladder wall thickening. Biliary ducts: No biliary dilation. Pancreas: No ductal dilation. Fatty atrophy of the pancreas. Spleen: Size is within normal limits. Adrenal Glands: No adrenal nodules. Kidneys and Ureters: No hydronephrosis. No solid mass. No complex renal cystic lesion which requires follow up. Stomach and Bowel: Normal colonic caliber, without significant wall thickening. Diverticulosis without evidence of acute diverticulitis. Normal appendix. Peritoneum: No abnormal intraperitoneal fluid. No free air. Ventral Wall: No significant ventral hernia. Abdominal Nodes: No retroperitoneal or mesenteric adenopathy by size criteria. Vessels: Aorta and inferior vena cava are normal in size. PELVIS: Pelvic Organs: Unremarkable. Bladder: No bladder wall thickening, accounting for underdistention. There is a 4 mm stone at the inferior aspect of the urinary bladder. Pelvic Nodes: No enlarged lymph nodes. Miscellaneous: Small bilateral fat containing inguinal hernias are seen. Bones: No aggressive osseous abnormality. Degenerative changes of the spine status post thoracolumbar fixation with levo scoliotic curvature. IMPRESSION: 1. No acute findings within the abdomen or pelvis. 2. Small stone within the inferior aspect of the urinary bladder measuring 4 mm. 3. Diverticulosis without evidence of acute diverticulitis. 4. Cholelithiasis without evidence of acute cholecystitis. 5. Please see above for additional findings. Dictated by: Samuel Gupta M.D. on 10/08/2024 at 12:31 Approved by: Samuel Gupta M.D. on 10/08/2024 at 12:37 MDM Narrative Medical decision making narrative: 64-year-old male with a past medical history of chronic back pain, neurogenic bladder with self catheterization for many decades, diverticulosis, frequent UTIs who presents to the emergency department with his significant other for abdominal pain, nausea, vomiting, constipation for approximately 10 hours. Differential diagnosis includes but is not limited to cyclic vomiting syndrome, gastroparesis, diverticulitis, colitis, appendicitis, cholecystitis, gastroenteritis, UTI, pyelonephritis, dehydration, electrolyte abnormality, etc. On exam patient is ill-appearing, retching, he is hypertensive but not tachycardic or febrile. He has diffuse nonfocal abdominal tenderness. He is requesting Dilaudid. Labs initially obtain revealed WBC count of 11.2, normal sodium 138, normal potassium 4.5, normal renal function with a creatinine of 0 point 8 4. Glucose 204. Normal lipase normal LFTs. We will check lactate, UA, CT abdomen pelvis with IV contrast, treat with fluids and Dilaudid at this time. Patient feeling much better after ED treatment, abdomen soft and nontender. CT reveals no acute findings within the abdomen or pelvis, the patient does have a small stone in the inferior aspect of the urinary bladder measuring 4 mm which he states he is aware of, diverticulosis, cholelithiasis. Printed results and provided him with his own copy and discussed all incidental findings. Labs reveal slightly elevated WBC count of 11.2, normal sodium 138, potassium 4.5, carbon dioxide decreased at 17, BUN 16 creatinine 0.84. Glucose slightly elevated 204. LFTs overall within normal limits with the exception of elevated total bilirubin 2.0 and a normal lipase Initial lactate 2.9. Urinalysis overall negative, there is only 1-5 urine WBCs and 0-1 urine yeast, no bacteria or leuk esterase. Patient not having any changes in his urination. Specimen was cultured. After patient's symptoms resolved we would further discussion and he states that he believes the tartar sauce he ate last night with dinner might have been ?bad? and precipitated his symptoms. Repeat lactate normal, 1.4. His abdomen is soft and nontender on subsequent examinations and he is no longer nauseous. He is requesting discharge home. We discussed all incidental findings, recommended avoiding large fatty meals, increase hydration, small bland meals for the next few days. He is prescribed Zofran if needed. Discussed strict ED return precautions and PCP follow up. He verbalized understanding of all information agreeable with the plan. He is stable for discharge home. <Clifford Mcmillan MD - Last Filed: 10/08/24 18:23> Lab Data Labs: Lab Results 10/08/24 10/08/24 10/08/24 Range/Units 09:29 11:54 13:59 WBC 11.2 H (4.5-11.0) X10^3/uL RBC 5.15 (4.5-5.9) X10^6/uL Hgb 15.7 (13.5-17.5) g/dL Hct 46.2 (41-53) % MCV 89.7 (80-100) fL MCH 30.4 (26-34) PG MCHC 33.9 (30-36) % RDW 14.4 (11.6-14.8) % Plt Count 285 (150-400) X10^3/uL Neut % (Auto) 96.3 H (50-75) % Lymph % (Auto) 2.1 L (25-40) % Winston % (Auto) 1.4 L (3-14) % Eos % (Auto) 0.1 L (2-4) % Baso % (Auto) 0.1 (0-2) % Neut # (Auto) 04043 H (2147-8914) /uL Lymph # (Auto) 200 L (0923-5688) /uL Winston # (Auto) 200 (0-900) /uL Eos # (Auto) 0 (0-450) /uL Baso # (Auto) 0 (0-100) /uL Sodium 138 (137-145) mmol/L Potassium 4.5 (3.4-5.1) mmol/L Chloride 107 (98-107) mmol/L Carbon Dioxide 17 L (22-32) mmol/L BUN 16 (9-20) mg/dL Creatinine 0.84 (0.66-1.25) mg/dL Estimated GFR > 60 (>60) mL/min BUN/Creatinine Ratio 19.0 (6-22) Glucose 204 H (70-99) mg/dL Lactate 2.9 H (0.7-2.1) mmol/L Calcium 9.7 (8.4-10.2) mg/dL Total Bilirubin 2.0 H (0.2-1.3) mg/dL AST 42 (17-59) IU/L ALT 43 (<50) IU/L Alkaline Phosphatase 71 (38-126) U/L Total Protein 7.9 (6.3-8.2) g/dL Albumin 4.8 (3.5-5.0) g/dL Globulin 3.1 (1.7-4.1) g/dL Albumin/Globulin Ratio 1.5 (1.0-2.8) Lipase 31 (23-300) U/L Urine RBC None seen (0-5/HPF) Urine WBC 1-5/hpf (0-5/HPF) Ur Squamous Epith Cells None seen (0-5/HPF) Urine Bacteria None seen (None) Urine Yeast 0-1/hpf (None) Ur Culture Indicated? Specimen cultured Vol Urine Centrifuged 10ml (spun) 10/08/24 Range/Units 15:00 WBC (4.5-11.0) X10^3/uL RBC (4.5-5.9) X10^6/uL Hgb (13.5-17.5) g/dL Hct (41-53) % MCV (80-100) fL MCH (26-34) PG MCHC (30-36) % RDW (11.6-14.8) % Plt Count (150-400) X10^3/uL Neut % (Auto) (50-75) % Lymph % (Auto) (25-40) % Winston % (Auto) (3-14) % Eos % (Auto) (2-4) % Baso % (Auto) (0-2) % Neut # (Auto) (1479-8096) /uL Lymph # (Auto) (5556-9931) /uL Winston # (Auto) (0-900) /uL Eos # (Auto) (0-450) /uL Baso # (Auto) (0-100) /uL Sodium (137-145) mmol/L Potassium (3.4-5.1) mmol/L Chloride (98-107) mmol/L Carbon Dioxide (22-32) mmol/L BUN (9-20) mg/dL Creatinine (0.66-1.25) mg/dL Estimated GFR (>60) mL/min BUN/Creatinine Ratio (6-22) Glucose (70-99) mg/dL Lactate 1.4 (0.7-2.1) mmol/L Calcium (8.4-10.2) mg/dL Total Bilirubin (0.2-1.3) mg/dL AST (17-59) IU/L ALT (<50) IU/L Alkaline Phosphatase (38-126) U/L Total Protein (6.3-8.2) g/dL Albumin (3.5-5.0) g/dL Globulin (1.7-4.1) g/dL Albumin/Globulin Ratio (1.0-2.8) Lipase (23-300) U/L Urine RBC (0-5/HPF) Urine WBC (0-5/HPF) Ur Squamous Epith Cells (0-5/HPF) Urine Bacteria (None) Urine Yeast (None) Ur Culture Indicated? Vol Urine Centrifuged Point of care testing: Urine Dip Bedside Urine Glucose Negative Bedside Urine Bilirubin - Negative Bedside Urine Ketone - Negative Urine Specific [place] 1.010 Bedside Urine Occult Blood - Negative Bedside Urine pH 5.5 Bedside Urine Protein +/- 15 Bedside Urine Urobilinogen - Negative Bedside Urine Nitrite - Negative Bedside Urine Leukocytes - Negative Esterase Discharge Plan Departure Patient Disposition: Home Clinical Impression: Generalized abdominal pain Nausea & vomiting Qualifiers: Vomiting type: unspecified Qualified Code(s): R11.2 - Nausea with vomiting, unspecified Instructions: DI for Abdominal Pain-Adult Activity Restrictions/Additional Instructions: Dear Mr. Leahy, Today you were treated for abdominal pain, nausea and vomiting. Your CT scan did reveal a stone in your bladder and gallstones. At this time you have no urinary tract infection or abdominal infection identified. A urine culture has been sent to the lab and if it grows any signs concerning for a UTI you will be called. Please rest, hydrate, use the prescribed nausea medicine if needed, and avoid large fatty meals as this may further upset your stomach. Please follow up with your primary care doctor as soon as possible and return to the ER if you develop any new or worsening symptoms. Please follow up with your primary care doctor within the next 2-3 days for ER follow-up. (If you do not have a PCP you can call [phone]. ?to schedule an appointment with an [facility] Primary Care Provider) IF YOU DEVELOP ANY NEW OR WORSENING SYMPTOMS, RETURN TO THE ER! Please read the attached instructions, they highlight more specific treatments and interventions for you at home. Thank you for letting me participate in your care, Kayla Smith PA-C Prescriptions: New ondansetron 4 mg tablet,disintegrating 4 mg PO Q8H PRN (Reason: nausea and vomiting) Qty: 20 0RF No Action metronidazole 500 mg tablet 500 mg PO TID acetaminophen-codeine 300-30 mg tablet 1 tab PO Q4-6H PRN (Reason: pain) amlodipine 5 mg tablet 5 mg PO DAILY ciprofloxacin HCl 500 mg tablet 500 mg PO BID vancomycin 125 mg capsule 125 mg PO QID ondansetron 4 mg tablet,disintegrating 4 mg PO Q4-6H PRN (Reason: Nausea) atenolol 50 mg tablet 100 mg PO DAILY amoxicillin-pot clavulanate 875-125 mg tablet 1 tab PO BID ondansetron 4 mg tablet,disintegrating 4 mg PO Q8H Qty: 10 0RF ondansetron 4 mg tablet,disintegrating 4 mg PO Q6H PRN (Reason: nausea and vomiting) Qty: 14 0RF amlodipine 5 mg tablet 5 mg PO DAILY Qty: 20 0RF metoclopramide HCl [Reglan] 10 mg tablet 10 mg PO Q6H PRN (Reason: nausea and vomiting) Qty: 20 0RF amoxicillin-pot clavulanate 875-125 mg tablet 1 tab PO Q12H Qty: 20 0RF hyoscyamine sulfate 0.125 mg tablet 0.125 mg PO BID-QID PRN (Reason: dyspepsia) Qty: 20 0RF ondansetron 4 mg tablet,disintegrating 4 mg PO TID-QID PRN (Reason: nausea and vomiting) Qty: 10 0RF dicyclomine 20 mg tablet 20 mg PO TID Qty: 14 0RF clotrimazole 10 mg catherine 10 mg mucous membrane 5XD Qty: 60 0RF metoclopramide HCl [Reglan] 10 mg tablet 10 mg PO Q6H PRN (Reason: nausea and vomiting) Qty: 14 0RF amoxicillin-pot clavulanate 875-125 mg tablet 1 tab PO Q12H Qty: 20 0RF phenazopyridine [Pyridium] 100 mg tablet 100 mg PO TID PRN (Reason: pain) Qty: 6 0RF levofloxacin 750 mg tablet 750 mg PO DAILY Qty: 7 0RF Referrals: Beth Weller, [employer] [Primary Care Provider] - Stand Alone Forms: Patient Portal/API/Survey ED Sign-out <Clifford Mcmillan MD - Last Filed: 10/08/24 18:23> Cosign ED Attending Glory Attestation: I was immediately available in the department for consultation. This documentation has been reviewed and I agree with assessment and plan. Supervised by Clifford Mcmillan MD
--- NOTE | 2024-10-08 11:10 | DI.CT.S_ITS ---
PROCEDURE: CT ABDOMEN PELVIS W CON INDICATIONS: diffuse abd pain; N/V constipation TECHNIQUE: After the administration of intravenous contrast, axial sections acquired from the lung bases to the pubic symphysis. Coronal and sagittal reformats were performed. For radiation dose reduction, the following was used: automated exposure control, adjustment of mA and/or kV according to patient size. COMPARISON: [facility], CT, CT ABDOMEN PELVIS W CON, 10/17/2022, 19:41. FINDINGS: Image quality: Diagnostic. Lower Chest: Lung bases are clear. Distal esophagus is mildly distended and fluid-filled. ABDOMEN: Liver: No solid mass. Gallbladder: Layering gallstone without gallbladder wall thickening. Biliary ducts: No biliary dilation. Pancreas: No ductal dilation. Fatty atrophy of the pancreas. Spleen: Size is within normal limits. Adrenal Glands: No adrenal nodules. Kidneys and Ureters: No hydronephrosis. No solid mass. No complex renal cystic lesion which requires follow up. Stomach and Bowel: Normal colonic caliber, without significant wall thickening. Diverticulosis without evidence of acute diverticulitis. Normal appendix. Peritoneum: No abnormal intraperitoneal fluid. No free air. Ventral Wall: No significant ventral hernia. Abdominal Nodes: No retroperitoneal or mesenteric adenopathy by size criteria. Vessels: Aorta and inferior vena cava are normal in size. PELVIS: Pelvic Organs: Unremarkable. Bladder: No bladder wall thickening, accounting for underdistention. There is a 4 mm stone at the inferior aspect of the urinary bladder. Pelvic Nodes: No enlarged lymph nodes. Miscellaneous: Small bilateral fat containing inguinal hernias are seen. Bones: No aggressive osseous abnormality. Degenerative changes of the spine status post thoracolumbar fixation with levo scoliotic curvature. IMPRESSION: 1. No acute findings within the abdomen or pelvis. 2. Small stone within the inferior aspect of the urinary bladder measuring 4 mm. 3. Diverticulosis without evidence of acute diverticulitis. 4. Cholelithiasis without evidence of acute cholecystitis. 5. Please see above for additional findings. Dictated by: Samuel Gupta M.D. on 10/08/2024 at 12:31 Approved by: Samuel Gupta M.D. on 10/08/2024 at 12:37
[2024-10-08] MEDS: HYDROMORPHONE 0.5 MG INJ IV ×2 (11:20→12:15)
[2024-10-08] MEDS: SODIUM CHLORIDE 0.9% 1,000 ML 1000 ML IV ×2 (11:22→12:38)
[2024-10-08 12:13] LABS: Lactate (Lactic Acid) 2.9 mmol/L (0.7-2.1)
--- NOTE | 2024-10-08 12:31 | PC.NURSE ---
Pt reports feeling so much better after second IV dilaudid.
[2024-10-08 13:33] LABS: Reflexed Lactate in 2 Hours Y
[2024-10-08 14:11] LABS: Urine Volume 10mL (spun)
[2024-10-08 14:16] LABS: RBC Urine None Seen (0-5/HPF); WBC Urine 1-5/HPF (0-5/HPF)
[2024-10-08 14:17] LABS: Bacteria Urine None Seen; Culture Indicated Urine Specimen Cultured; Squamous Epithelial Cell Urine None Seen (0-5/HPF)
[2024-10-08 15:44] LABS: Lactate 2HR (Lactic Acid Rflx) 1.4 mmol/L (0.7-2.1)
== END 2024-10-08 16:37 | disposition home or self-care (01) ==
PROVIDERS: Emergency Medicine; Emergency Provider Physician Assistant; PCP Family Medicine
DX: R10.84 Generalized abdominal pain (principal); R11.2 Nausea with vomiting, unspecified; K59.00 Constipation, unspecified
CPT/HCPCS: 36415; 74177; 80053; 81003; 81015; 83605; 83690; 85025; 87086; 93005; 96361; 96374; 96375; 96376; 99284; J1171; J2405; Q9967